=== PATIENT | female | born 1950 | race Caucasian/White ===

== ENCOUNTER → 2017-01-10 | Outpatient (CLI) | payer OTHER ==
--- NOTE | 2017-01-10 14:55 | MAMMOGRAPHY REPORT ---
BILATERAL DIGITAL SCREENING MAMMOGRAM WITH CAD: 01/10/2017 CLINICAL HISTORY: Routine screening examination. TECHNIQUE: Bilateral CC and MLO views were obtained. Current study was also evaluated with a Comput er Aided Detection (CAD) system. COMPARISON: Comparison is made to exams dated: 01/08/2016 mammogram, 01/06/2015 mammogram, 01/02/2014 m ammogram, 12/27/2012 mammogram, 12/27/2011 ultrasound, and 12/27/2011 mammogram - [facility] ter. BREAST COMPOSITION: There are scattered areas of fibroglandular density in both breasts. FINDINGS: There are 2 stable masses with associated biopsy marker clips in the left breast. There ar e scattered and grouped benign-appearing microcalcifications, stable in each breast. No new suspicio us mass, architectural distortion or cluster of microcalcifications is seen. IMPRESSION: ACR BI-RADS CATEGORY 1: NEGATIVE There is no mammographic evidence of malignancy. A 1 year screening mammogram is recommended. The pa tient will receive written notification of the results. Approximately 10% of breast cancers are not detected with mammography. A negative mammographic report should not delay biopsy if a clinically suggestive mass is present. Mona Blanco M.D. ay/:01/10/2017 12:01:42 [facility] Librarian: Nguyen CHEN(Jossue)(M), [facility] letter sent: Normal 1/2 BI-RADS Code: ACR BI-RADS Category 1: Negative
== END | disposition home or self-care (01) ==
LOC: C.MAMM 09:38
PROVIDERS: ATTEND Internal Medicine
DX: Z12.31 Encounter for screening mammogram for malignant neoplasm of breast (principal)

== ENCOUNTER 2025-03-13 12:08 | Inpatient (IN) ==
--- NOTE | 2025-03-13 12:26 | Emergency Department Note ---
Impression & Plan Syncope and collapse, Elevated troponin, Weakness, CKD (chronic kidney disease) ED Provider Note NAME: KYLAH MASSEY AGE: 74 SEX: F : 1950 ARRIVES VIA: Ambulance INFORMANT: Patient ED PROVIDER(S): Howard Mixon DO CHIEF COMPLAINT: Syncope HPI: Patient is a 74-year-old female with a past medical history of an NSTEMI who presents to the ER following a syncopal episode. She notes that she was walking to the bathroom and became very lightheaded and fell to the ground and passed out. She notes that she did hit her head. She is complaining of severe back pain. Denies any weakness or numbness in the legs. No chest pain or shortness of breath preceding or following the incident. No belly pain. No nausea or vomiting. No other exacerbating or remitting factors. ADDITIONAL HISTORY OBTAINED: Per HPI Chronic Medical/Social Conditions Affecting Care: Per HPI PAST MEDICAL HISTORY:See Below PAST SURGICAL HISTORY:See Below FAMILY HISTORY:See Below SOCIAL HISTORY:See Below HOME MEDICATIONS:See Below ALLERGIES:See Below VITALS:See Below PHYSICAL EXAMINATION: GENERAL: alert, well appearing, well nourished, no distress, non-toxic HEAD: normal cephalic, atraumatic EYE EXAM: normal conjunctiva, PERRL and EOM's grossly intact OROPHARYNX: no exudate, no erythema, lips, buccal mucosa, and tongue normal and mucous membranes are moist NECK: supple, no nuchal rigidity, no adenopathy, non-tender CHEST: stable to compression anteriorly and posteriorly LUNGS: clear to auscultation. Normal chest wall mechanics HEART: no murmurs, S1 normal and S2 normal ABDOMEN: abdomen soft, non-tender, normo-active bowel sounds, no masses, no rebound or guarding. PELVIS: stable to compression anteriorly and posteriorly BACK: Back is symmetrical on inspection and there is no deformity, midline tenderness in the lower lumbar region UPPER EXTREMITIES: full active and passive range of motion of all joints without tenderness to palpation LOWER EXTREMITIES: full active and passive range of motion of all joints without tenderness to palpation NEURO EXAM: Normal sensorium, cranial nerves II-XII grossly intact, normal speech, no gross weakness of arms, no gross weakness of legs. GCS: 15. MEDICAL DECISION MAKING: Patient is a 74-year-old female who presents ER for syncopal episode. IV was established and blood work was obtained. Labs show mild leukocytosis of 12,000. Mild anemia 10. BMP with a creatinine of 4.5 and per review of external records from [facility] this appears to be consistent with her new baseline. LFTs and bilirubin is unremarkable. Troponin mildly elevated 28 which I favor secondary to her chronic kidney disease. CTs of her head, cervical spine and and lumbar spine show an L1 fracture. She has significant Knott pain with this. She having trouble moving. X-rays were unremarkable of the chest. She was updated bedside. She was given IV morphine and following this she became slightly hypoxic. Case was discussed with the hospitalist for further evaluation management treatment. Consults/Care Managements Discussions: Per [facility] Triage Nursing notes reviewed. Limited review of prior medical records performed Vital Signs: reviewed and remarkable for no significant abnormalities Differential diagnosis: Differential diagnoses include major intracranial, cervical, spinal, thoracic, abdominal, pelvic and neurologic injury. Fracture, contusion, sprain, strain, laceration, abrasions included as well. ER treatment provided: See below Diagnostics interpreted by me include EKG and cardiac monitoring as listed below: -Cardiac Monitoring: An order was placed for continuous cardiac monitoring. The monitor shows a rate of 80 with sinus rhythm. -ECG: Sinus rhythm rate 83 Normal axis No PVCs QTc 451 -Laboratory studies:Interpreted by me as stated above in [facility] and shown below. Imaging studies: Xrays: As interpreted by me: Portable AP upright 1 view of the chest shows no focal Lutrate CTs show: CT head, cervical spine and lumbar spine as described above Procedures:none Critical Care: None Past Med/Surg History Problem List (Updated 03/13/25 @ 16:51 by Howard Mixon DO) CKD (chronic kidney disease) (Acute) Weakness (Acute) CAD, multiple vessel History of orthostatic hypotension Elevated troponin (Acute) History of coronary artery bypass graft x 3 Syncope and collapse (Acute) Non-ST elevation PA (NSTEMI) (Acute) Medical History Statin intolerance Fibromyalgia HLD (hyperlipidemia) T2DM (type 2 diabetes mellitus) Surgical History No pertinent past surgical history Family History Father Stroke Social History Smoking Status: Former smoker Tobacco Type: Cigarettes Hx Alcohol Use: No Hx Substance Use: No Preferred Language: Frisian Communication Ability: Effective [employer] Required: No Beliefs That Will Affect Care: None Current Living Situation: Alone Feels Safe at Home: Yes Allergies Allergies Allergy/AdvReac Type Severity Reaction Status Date / Time prednisone Allergy Intermediate INJECTED--HIVES, Verified 03/13/25 15:13 ORAL--BLOOD SUGARS 300+ Home Meds Home Medications Medication Instructions Recorded Confirmed cholecalciferol (vitamin D3) 50 50 mcg PO QAM 12/20/24 03/13/25 mcg (2,000 unit) tablet (Vitamin D3) multivitamin with minerals-folic 1 tab PO QAM 12/20/24 03/13/25 acid 0.4 mg tablet (One-A-Day Women's 50 Plus) omega 7-rbt-jwr-fish oil 1,000 mg 1 cap PO QAM 12/20/24 03/13/25 (120 mg-180 mg) capsule (Fish Oil) clopidogrel 75 mg tablet 75 mg PO QAM 03/13/25 03/13/25 escitalopram oxalate 10 mg tablet 10 mg PO QAM 03/13/25 03/13/25 famotidine 20 mg tablet 20 mg PO QAM 03/13/25 03/13/25 insulin aspart U-100 100 unit/mL 1 sliding scale dose subcut 03/13/25 03/13/25 (3 mL) subcutaneous pen TIDWMEAL insulin glargine 100 unit/mL (3 13 unit subcut HS 03/13/25 03/13/25 mL) subcutaneous pen (Lantus Solostar U-100 Insulin) torsemide 20 mg tablet 40 mg PO QAM 03/13/25 03/13/25 Previous Rx's Medication Instructions Recorded aspirin 81 mg tablet,delayed 81 mg PO QAM #1 tab 12/21/24 release Results & Data (ED) Vital Signs Vital Signs - 24 hr 03/13/25 12:16 03/13/25 12:16 03/13/25 12:46 Temperature 36.7 C 36.7 C Temperature Source Oral Oral Pulse Rate 73 73 Pulse Rate [Apical] 73 Pulse Rate from SpO2 Sensor Pulse Rhythm Regular Respiratory Rate 16 16 16 Respiratory Effort / Characteristics Non-Labored Spontaneous Non-Labored Spontaneous Respiratory Depth Normal Normal Respiratory Pattern Regular Regular Blood Pressure 121/71 Blood Pressure [Left Arm] 121/71 Blood Pressure Mean 87 Blood Pressure Mean [Left Arm] 87 Blood Pressure Position Semi-fowlers Blood Pressure Position [Left Arm] Semi-fowlers Pulse Oximetry 16 L 97 97 Oxygen Delivery Method Room Air Room Air Room Air Oxygen Flow Rate Sepsis Recent Fever Within 48 Hours No Sepsis New/Unexplained Change in Mental Status No Sepsis Action Taken by Nursing No Action Required Oxygen Flow Rate - Titration Pulse Oximetry Post Tiitration 03/13/25 13:00 03/13/25 13:49 03/13/25 13:59 Temperature Temperature Source Pulse Rate 82 82 Pulse Rate [Apical] 84 Pulse Rate from SpO2 Sensor 83 Pulse Rhythm Respiratory Rate 18 20 Respiratory Effort / Characteristics Non-Labored Respiratory Depth Normal Respiratory Pattern Blood Pressure 125/72 Blood Pressure [Left Arm] 125/72 Blood Pressure Mean 89 Blood Pressure Mean [Left Arm] 89 Blood Pressure Position Blood Pressure Position [Left Arm] Pulse Oximetry 95 90 Oxygen Delivery Method Room Air Oxygen Flow Rate Sepsis Recent Fever Within 48 Hours Sepsis New/Unexplained Change in Mental Status Sepsis Action Taken by Nursing Oxygen Flow Rate - Titration Pulse Oximetry Post Tiitration 03/13/25 14:00 03/13/25 14:25 03/13/25 14:31 Temperature 36.7 C Temperature Source Pulse Rate 85 85 Pulse Rate [Apical] Pulse Rate from SpO2 Sensor 85 Pulse Rhythm Respiratory Rate 19 16 Respiratory Effort / Characteristics Respiratory Depth Respiratory Pattern Blood Pressure 130/58 L 129/71 Blood Pressure [Left Arm] Blood Pressure Mean 82 Blood Pressure Mean [Left Arm] Blood Pressure Position Blood Pressure Position [Left Arm] Pulse Oximetry 93 100 88 L Oxygen Delivery Method Nasal Cannula Oxygen Flow Rate 2 0 Sepsis Recent Fever Within 48 Hours Sepsis New/Unexplained Change in Mental Status Sepsis Action Taken by Nursing Oxygen Flow Rate - Titration 2 Pulse Oximetry Post Tiitration 100 03/13/25 15:00 03/13/25 16:00 Temperature Temperature Source Pulse Rate Pulse Rate [Apical] 84 86 Pulse Rate from SpO2 Sensor Pulse Rhythm Respiratory Rate 18 20 Respiratory Effort / Characteristics Non-Labored Non-Labored Spontaneous Respiratory Depth Normal Normal Respiratory Pattern Blood Pressure Blood Pressure [Left Arm] 130/75 129/75 Blood Pressure Mean Blood Pressure Mean [Left Arm] 93 93 Blood Pressure Position Blood Pressure Position [Left Arm] Pulse Oximetry 100 98 Oxygen Delivery Method Room Air Room Air Oxygen Flow Rate Sepsis Recent Fever Within 48 Hours Sepsis New/Unexplained Change in Mental Status Sepsis Action Taken by Nursing Oxygen Flow Rate - Titration Pulse Oximetry Post Tiitration Laboratory Data 03/13/25 12:40 03/13/25 12:40 Lab Results 03/13/25 03/13/25 03/13/25 Range/Units 12:40 14:50 16:24 WBC 12.61 H (4.8-10.8) K/ul RBC 3.20 L (4.20-5.40) M/uL Hgb 10.1 L (12.0-16.0) g/dl Hct 30.3 L (37.0-47.0) % MCV 94.7 (80.0-100.0) fL MCH 31.6 (25.0-34.0) pg MCHC 33.3 (32.0-36.0) g/dL RDW Std Deviation 48.2 H (36.4-46.3) fL RDW Coeff of Zeina 13.8 (11.5-14.5) % Plt Count 348 (130-400) K/uL MPV 10.6 (9.4-12.4) fL Immature Gran % (Auto) 0.7 % Neut % (Auto) 84.1 % Lymph % (Auto) 7.6 % Dodge % (Auto) 6.7 % Eos % (Auto) 0.6 % Baso % (Auto) 0.3 % Neut # (Auto) 10.60 H (1.40-6.50) K/uL Lymph # (Auto) 0.96 L (1.20-3.40) K/uL Dodge # (Auto) 0.84 H (0.11-0.59) K/uL Eos # (Auto) 0.08 (0.00-0.50) K/uL Baso # (Auto) 0.04 (0.00-0.20) K/uL Immature Gran # (Auto) 0.09 (0.01-0.20) K/uL Sodium 139 (136-145) mmol/L Potassium 4.4 (3.5-5.1) mmol/L Chloride 98 (98-107) mmol/L Carbon Dioxide 28 (21-32) mmol/L Anion Gap 13 H (3-11) BUN 100 H (6-23) mg/dl Creatinine 4.50 H (0.6-1.2) mg/dl Est Cr Clr Drug Dosing 9.6 ml/min eGFR 9.60 BUN/Creatinine Ratio 22.2 H (10-20) Glucose 153 H (70-99(Fasting)) mg/dl POC Glucose 104 H (70-99) mg/dl Calcium 9.8 (8.6-10.3) mg/dl Total Bilirubin 0.5 (0.2-1.0) mg/dl AST 18 (13-39) U/L ALT 14 (7-52) U/L Alkaline Phosphatase 66 (34-104) U/L Troponin I High Sens 33.5 H 28.7 H (0-14) pg/ml Total Protein 7.3 (6.0-8.3) gm/dl Albumin 4.2 (3.4-5.0) gm/dl Globulin 3.1 (2.5-4.0) gm/dl Albumin/Globulin Ratio 1.4 (0.9-2) Lipase 23 (11-82) U/L Administered Medications Discontinued Medications Hydromorphone HCl (Hydromorphone Inj 1 Mg/Ml Syringe) 1 mg IV NOW STA Stop: 03/13/25 16:08 Last Admin: 03/13/25 16:19 Dose: 1 mg Documented By: WILLAM Sodium Chloride (Nss) 1,000 mls @ 999 mls/hr IV .Q1H1M ONE Stop: 03/13/25 15:17 Last Infusion: 03/13/25 16:29 Dose: Infused Documented By: Admin: 03/13/25 14:42 Dose: 999 mls/hr Documented By: FARHAD Morphine Sulfate (Morphine Sulfate 4 Mg/Ml 1 Ml Carp\Vial) 4 mg IV NOW STA Stop: 03/13/25 13:38 Last Admin: 03/13/25 13:43 Dose: 4 mg Documented By: FARHAD Imaging Data Radiologist's Impression: Cervical Spine CT 03/13/25 12:21 CT SCAN OF THE CERVICAL SPINE CLINICAL HISTORY: Fall. COMPARISON STUDY: None. TECHNIQUE: CT scan of the cervical spine is performed from the skull base to the upper thoracic spine. Images are reviewed in the axial, sagittal, and coronal planes. IV contrast was not administered for this examination. A dose lowering technique was utilized adhering to the principles of ALARA. FINDINGS: Skeletal structures: There is no evidence of fracture or subluxation involving the cervical spine. Vertebral body height and alignment are maintained. The odontoid process and lateral masses are intact. The atlantoaxial articulation is preserved. The spinous processes appear intact. There are mild degenerative changes at the C1-C2 articulation. There is mild multilevel endplate osteophytosis and minimal disc space narrowing within the cervical spine. Soft tissues: The prevertebral and paraspinous soft tissues are within normal limits. Calvarium: The visualized calvarium at the skull base appears intact. Brain parenchyma: Partially visualized brain parenchyma at the skull base is within normal limits. Lung apices: Clear as visualized. IMPRESSION: No acute cervical spine fracture or subluxation. ACT 112: Negative or not required by law. Electronically signed by: Jalen Nunez M.D. 03/13/2025 1:45 PM Chest X-Ray 03/13/25 12:21 XR chest 1V portable CLINICAL HISTORY: Chest pain, nonspecific COMPARISON STUDY: 12/20/2024 FINDINGS: Interval CABG. Stable mild cardiomegaly without pulmonary vascular congestion. No consolidation or pleural effusion. No pneumothorax. IMPRESSION: No acute findings. ACT 112: Negative or not required by law. Electronically signed by: Jacob Wise M.D. 03/13/2025 12:[address] 03/13/25 12:21 CT head/brain wo con CLINICAL HISTORY: fall. TECHNIQUE: Multiple axial CT images of the head were obtained without contrast. A dose lowering technique was utilized adhering to the principles of ALARA. COMPARISON: 06/03/2024 FINDINGS: No intracranial hemorrhage seen. No mass effect, midline shift, or hydrocephalus. No skull fracture seen. Visualized paranasal sinuses and mastoid air cells are clear. IMPRESSION: No acute findings. ACT 112: Negative or not required by law. The above report was generated using voice recognition software. It may contain grammatical, syntax or spelling errors. Electronically signed by: Jacob Wise M.D. 03/13/2025 1:[address] 03/13/25 12:21 CT SCAN OF THE LUMBAR SPINE WITHOUT IV CONTRAST CLINICAL HISTORY: Fall. Low back pain COMPARISON STUDY: Abdominal CT dated 10/31/2021 TECHNIQUE: CT scan of the lumbar spine is performed from the lower thoracic spine to the sacrum. Images are reviewed in axial, sagittal, and coronal planes. IV contrast was not administered for this examination. A dose lowering technique was utilized adhering to the principles of ALARA. CT DOSE: 2075.28 mGy.cm FINDINGS: A transitional lumbosacral segment will be labeled S1 for purposes of this examination. The skeletal structures are osteopenic. There is an acute comminuted compression fracture of L1 with mild loss of height along the superior endplate. This involves the superior and inferior cortex, as well as the anterior cortex. There is no clear involvement of the posterior cortex or posterior elements. Paravertebral edema is noted. No retropulsion of fragments is seen. No additional acute fracture is identified. Vertebral body height is otherwise maintained for the lumbar spine. Alignment is preserved. Anterior and lateral marginal osteophytes are seen throughout. The transverse and spinous processes are intact. There is no spondylolysis. No lytic or blastic lesion is seen. There is moderate disc space narrowing at L5-S1. Only mild disc space narrowing is seen at the remaining lumbar levels. Small posterior disc osteophyte complexes are noted at L3-L4, L4-L5, and L5-S1. There is no CT evidence of large disc herniation or high-grade central canal stenosis. The imaged sacrum and bony pelvis appear intact. Mild degenerative change is noted in the sacroiliac joints. The paraspinous soft tissues are within normal limits. Moderate epidural scar calcification is noted in the normal caliber abdominal aorta. There are calcified uterine fibroids. No retroperitoneal lymphadenopathy is seen. IMPRESSION: 1. There is an acute comminuted compression fracture of L1 as detailed above. There is only mild loss of height and no retropulsion of fragments is seen. 2. No additional acute fracture is identified. 3. Osteopenia and mild degenerative change as above. ACT 112: Negative or not required by law. Electronically signed by: David Haley M.D. 03/13/2025 2:01 PM Discharge Plan Visit Data Chief Complaint: Trauma ED Provider: Howard Mixon Discharge Problem: Syncope and collapse, Elevated troponin, Weakness, CKD (chronic kidney disease) Condition: Fair Forms Stand Alone Forms: My [facility] [employer] Prescriptions Prescriptions: No Action torsemide 20 mg tablet 40 mg PO QAM clopidogrel 75 mg tablet 75 mg PO QAM famotidine 20 mg tablet 20 mg PO QAM escitalopram oxalate 10 mg tablet 10 mg PO QAM insulin aspart U-100 100 unit/mL (3 mL) insulin pen 1 sliding scale dose SUBCUT TIDWMEAL insulin glargine [Lantus Solostar U-100 Insulin] 100 unit/mL (3 mL) insulin pen 13 unit SUBCUT HS cholecalciferol (vitamin D3) [Vitamin D3] 50 mcg (2,000 unit) Tablet 50 mcg PO QAM omega 5-ror-hmq-fish oil [Fish Oil] 1,000 (120-180) mg Capsule 1 cap PO QAM multivit with min-folic acid [One-A-Day Women's 50 Plus] 0.4 mg Tablet 1 tab PO QAM aspirin 81 mg Tablet,Delayed Release (Dr/Ec) 81 mg PO QAM Qty: 1 0RF Referrals Referrals: Janie Pena MD [Primary Care Provider] - Discharge Problem: CKD (chronic kidney disease) Qualifiers: Chronic kidney disease stage: unspecified stage Qualified Code(s): N18.9 - Chronic kidney disease, unspecified
[2025-03-13 12:55] LABS: Hematocrit (blood only) 30.3 % (37.0-47.0); Hemoglobin 10.1 g/dl (12.0-16.0); Immature Granulocytes # (auto) 0.09 K/uL (0.01-0.20); Immature Granulocytes % (auto) 0.7 %; Mean Corpuscular Hemoglobin 31.6 pg (25.0-34.0); Mean Corpuscular Volume 94.7 fL (80.0-100.0); Platelet Count 348 K/uL (130-400); RDW Standard Deviation 48.2 fL (36.4-46.3); Red Blood Count 3.20 M/uL (4.20-5.40); White Blood Count 12.61 K/ul (4.8-10.8)
--- NOTE | 2025-03-13 13:00 | XRay Report ---
XR chest 1V portable CLINICAL HISTORY: Chest pain, nonspecific COMPARISON STUDY: 12/20/2024 FINDINGS: Interval CABG. Stable mild cardiomegaly without pulmonary vascular congestion. No consolida tion or pleural effusion. No pneumothorax. IMPRESSION: No acute findings. ACT 112: Negative or not required by law. Electronically signed by: Jacob Wise M.D. 03/13/2025 12:59 PM
[2025-03-13 13:12] LABS: Alanine Aminotransferase 14.0 U/L (7-52); Albumin Globulin Ratio 1.4 (0.9-2); Alkaline Phosphatase 66.0 U/L (34-104); Anion Gap 13.0 (3-11); Bilirubin,Total 0.5 mg/dl (0.2-1.0); Blood Urea Nitrogen 100.0 mg/dl (6-23); Calcium 9.8 mg/dl (8.6-10.3); Carbon Dioxide 28.0 mmol/L (21-32); Chloride 98.0 mmol/L (98-107); Creatinine Clr Calc Pharmacy 9.6 ml/min; Globulin 3.1 gm/dl (2.5-4.0); Glucose 153.0 mg/dl (70-99(Fasting)); Lipase 23.0 U/L (11-82); Potassium 4.4 mmol/L (3.5-5.1); Sodium 139.0 mmol/L (136-145); Total Protein 7.3 gm/dl (6.0-8.3)
[2025-03-13] MEDS: MoRPHine SULFATE 4 MG/ML 1 ML CARP\\VIAL IV STA (13:43)
--- NOTE | 2025-03-13 13:47 | CT Scan Report ---
CT SCAN OF THE CERVICAL SPINE CLINICAL HISTORY: Fall. COMPARISON STUDY: None. TECHNIQUE: CT scan of the cervical spine is performed from the skull base to the upper thoracic spine . Images are reviewed in the axial, sagittal, and coronal planes. IV contrast was not administered fo r this examination. A dose lowering technique was utilized adhering to the principles of ALARA. FINDINGS: Skeletal structures: There is no evidence of fracture or subluxation involving the cervical spine. Ve rtebral body height and alignment are maintained. The odontoid process and lateral masses are intact . The atlantoaxial articulation is preserved. The spinous processes appear intact. There are mild deg enerative changes at the C1-C2 articulation. There is mild multilevel endplate osteophytosis and mini mal disc space narrowing within the cervical spine. Soft tissues: The prevertebral and paraspinous soft tissues are within normal limits. Calvarium: The visualized calvarium at the skull base appears intact. Brain parenchyma: Partially visualized brain parenchyma at the skull base is within normal limits. Lung apices: Clear as visualized. IMPRESSION: No acute cervical spine fracture or subluxation. ACT 112: Negative or not required by law. Electronically signed by: Jalen Nunez M.D. 03/13/2025 1:45 PM
--- NOTE | 2025-03-13 13:47 | CT Scan Report ---
CT head/brain wo con CLINICAL HISTORY: fall. TECHNIQUE: Multiple axial CT images of the head were obtained without contrast. A dose lowering tech nique was utilized adhering to the principles of ALARA. COMPARISON: 06/03/2024 FINDINGS: No intracranial hemorrhage seen. No mass effect, midline shift, or hydrocephalus. No skull fracture seen. Visualized paranasal sinuses and mastoid air cells are clear. IMPRESSION: No acute findings. ACT 112: Negative or not required by law. The above report was generated using voice recognition software. It may contain grammatical, syntax o r spelling errors. Electronically signed by: Jacob Wise M.D. 03/13/2025 1:46 PM
--- NOTE | 2025-03-13 14:02 | CT Scan Report ---
CT SCAN OF THE LUMBAR SPINE WITHOUT IV CONTRAST CLINICAL HISTORY: Fall. Low back pain COMPARISON STUDY: Abdominal CT dated 10/31/2021 TECHNIQUE: CT scan of the lumbar spine is performed from the lower thoracic spine to the sacrum. Evie ges are reviewed in axial, sagittal, and coronal planes. IV contrast was not administered for this ex amination. A dose lowering technique was utilized adhering to the principles of ALARA. CT DOSE: 2075.28 mGy.cm FINDINGS: A transitional lumbosacral segment will be labeled S1 for purposes of this examination. The skeletal structures are osteopenic. There is an acute comminuted compression fracture of L1 with mil d loss of height along the superior endplate. This involves the superior and inferior cortex, as well as the anterior cortex. There is no clear involvement of the posterior cortex or posterior elements. Paravertebral edema is noted. No retropulsion of fragments is seen. No additional acute fracture is identified. Vertebral body height is otherwise maintained for the lumbar spine. Alignment is preserve d. Anterior and lateral marginal osteophytes are seen throughout. The transverse and spinous processe s are intact. There is no spondylolysis. No lytic or blastic lesion is seen. There is moderate disc s pace narrowing at L5-S1. Only mild disc space narrowing is seen at the remaining lumbar levels. Small posterior disc osteophyte complexes are noted at L3-L4, L4-L5, and L5-S1. There is no CT evidence of large disc herniation or high-grade central canal stenosis. The imaged sacrum and bony pelvis appear intact. Mild degenerative change is noted in the sacroiliac joints. The paraspinous soft tissues are within normal limits. Moderate epidural scar calcification is noted in the normal caliber abdominal aorta. There are calcified uterine fibroids. No retroperitoneal lymphadenopathy is seen. IMPRESSION: 1. There is an acute comminuted compression fracture of L1 as detailed above. There is only mild loss of height and no retropulsion of fragments is seen. 2. No additional acute fracture is identified. 3. Osteopenia and mild degenerative change as above. ACT 112: Negative or not required by law. Electronically signed by: David Haley M.D. 03/13/2025 2:01 PM
--- NOTE | 2025-03-13 14:30 | History & Physical Report ---
<Statement entered by Kendrick Leiva, DO - 03/13/25 18:13> Patient seen and examined at bedside #MAGAN on CKD3 -Recent ARF requiring one session of HD at OSH -Cr 4.5, BUN 100 on admission. Cr 4.4 on 03/01 -Follows with nephrology as OP, on torsemide -BUN approaching need for HD, no encephalopathy or asterixis however -Appreciate nephrology assistance -Holding torsemide -IVF for today -Recheck BMP in AM -Avoid nephrotoxic agents if possible #L1 fx -Secondary to fall -Ortho consulted, appreciate input #Syncopal episode -Likely secondary to orthostasis -Volume repletion -Check TTE #Trop elevation -Likely non specific trop elevation in setting of MAGAN/CKD -Low suspicion for ACS -No chest pain -TTE pending Date of Service March 13, 2025 Assessment & Plan (1) Syncope and collapse: (2) History of orthostatic hypotension: (3) Fracture of lumbar spine: (4) Acute kidney injury superimposed on stage 3a chronic kidney disease: (5) Elevated troponin: (6) CAD, multiple vessel: (7) History of coronary artery bypass graft x 3: (8) Anemia: Plan Pt is a 74y/o F with PMHx significant for NSTEMI in November 2024, severe multivessel CAD s/p CABG x 3 [RODNEY to LAD and SVG to OM, PDA] on 12/25/2024, uncontrolled DMII [Hgb A1c 12.9% 2mo ago], HLD with history of statin intolerance, CKD stage IIIa, constipation and history of medication noncompliance who presented to the ED via EMS after sustaining a syncopal event at home. Recent confinement from 12/21/24-01/08/25 at [facility] for NSTEMI after being transferred from this facility for CABG evaluation s/p cardiac catheterization on 12/21/24 which revealed sever multivessel CAD. S/p CABG x 3 [RODNEY to LAD and SVG to OM, PDA] on 12/25/[address] Adame at [facility]. Postop course complicated by development of MAGAN and subsequent ARF secondary to ATN requiring CRRT x 1 session, acute anemia requiring PRBC transfusion and new- onset atrial fibrillation which resolved with conversion back to NSR s/p IV amiodarone. Patient was discharged on 80mg po torsemide daily due to fluid retention. TTE, 12/25/24: EF 56%, mild improvement in RWM in anteroseptal region, mild MR, mild TR and mild AVR. Patient was discharged to [facility] for rehab services following her admission at [facility]. She was discharged home from [facility] on 02/21/25. Patient currently living alone at her apartment with caregiver support in the AM on / and in the afternoon on /. She has a brother whom lives in [place]. No local family support. #Syncope and collapse #History of orthostasis #Acute comminuted compression fracture of L1 Syncope likely 2/2 orthostasis, volume depletion ISO torsemide use Hold torsemide for now -? consider even stopping torsemide Will check orthostatics as pt tolerates ISO low back pain 2/2 L1 fx s/p fall Check TTE Ortho spine consult Fall precautions OOB w/ assistance PRN analgesia, lynette lidocaine patch/PRN ice application on low back Leukocytosis likely reactive 2/2 pain -Will check procal; no s/sx of over infection -Follow CBC trend #MAGAN superimposed on underlying CKD stage IIIa #History of acute renal failure 2/2 ATN requiring CRRT x 1 session during recent admission at [facility] Seen by Dr. Hendricks as an OP on 03/01/25 -Cr 4.6 on 01/21/25 (prior baseline Cr ~0.8-1 prior to [facility] admission) -Cr 4.4, BUN 72 on 03/01/25 -Torsemide dose decreased to 40mg po daily 2/2 orthostasis, volume depletion Renal US completed 12/29/24 which was unremarkable No renal biopsy completed during admission at [facility] Cr 4.5, BUN 100, Cr Clr 9.6, eGFR 9.6 on admission -Discussed case w/ Dr. Hendricks via TT -Recommended IVF overnight, trend renal fx in AM --> consult placed, Dr. Hendricks to see pt Closely monitor I&Os, daily wts -D/w pt regarding Alfonso cath placement, she would like to trial PureWick for now Holding torsemide for now, as per above #Elevated troponin #Severe multivessel CAD s/p CABG x 3 on 6/3/25 EKG: NSR, no acute ST changes CXR: no acute findings Pt w/o any cardiopulmonary complaints Suspect trop elevation 2/2 demand ischemia ISO underlying cardiac dz, orthostasis Follow trop trend Tele monitoring, EKG w/ chest pain PRN Continue DAPT #Anemia Hgb appears to be slowly improving, 10.1 on admission Previously did require PRBC transfusions, as per above No s/sx of active bleeding on admission No indication for transfusion at this time Will check routine anemia panel including vit B12, folate Follow CBC trend #Uncontrolled DMII Hgb A1c 12.9% 2mo ago Basal/bolus regimen while inpt Appreciate glycemic pharm assistance Appreciate DM educator consult #Anxiety/depression Continue Lexapro #GERD Continue PPI DVT Prophylaxis: SCDs/TEDs for now, could consider chemical AC pending clinical course Disposition: Admit to med/telemetry Patient seen in collaboration with Dr. Leiva. Please see addendum. I spent a total of 72 minutes coordinating, documenting, and providing care for this patient excluding time spent in the performance of separately billed services or time spent by another provider/QHP. This included personally r eviewing all current laboratories and imaging studies, medical reconciliation, outpatient chart review and discussion with specialists. This chart was completed in part utilizing Speech Voice Recognition Software. Grammatical errors, random word insertions, pronoun errors, and incomplete sentences are an occasional consequence of this system due to software limitations, ambient noise, and hardware issues. Any formal questions or concerns about the content, text, or information contained within the body of this dictation should be directly addressed to the provider for clarification. History of Present Illness Chief Complaint: Syncope and collapse, low back pain Primary Care Provider: Janie Pena MD Pt is a 74y/o F with PMHx significant for NSTEMI in November 2024, severe multivessel CAD s/p CABG x 3 [RODNEY to LAD and SVG to OM, PDA] on 12/25/2024, uncontrolled DMII [Hgb A1c 12.9% 2mo ago], HLD with history of statin intolerance, CKD stage IIIa, constipation and history of medication noncompliance who presented to the ED via EMS after sustaining a syncopal event at home. History obtained from the patient, discussion with ED provider and extensive chart review. Recent confinement from 12/21/24-01/08/25 at [facility] for NSTEMI after being transferred from this facility for CABG evaluation since she was found to have severe multivessel CAD on cardiac catheterization performed by Dr. Renee on 12/21/24. S/p CABG x 3 [RODNEY to LAD and SVG to OM, PDA] on 12/25/[address] Adame at [facility]. Postop course complicated by development of MAGAN and subsequent ARF secondary to ATN requiring CRRT x 1 session, acute anemia requiring PRBC transfusion and new-onset atrial fibrillation which resolved with conversion back to NSR s/p IV amiodarone. Renal US was normal on 12/29/24. No renal biopsy was completed. Patient was discharged home on 80mg po torsemide daily due to fluid retention. TTE, 12/25/24: EF 56%, mild improvement in RWM in anteroseptal region, mild MR, mild TR and mild AVR. Patient was discharged to [facility] for rehab services following her admission at [facility]. She was discharged home from [facility] on 02/21/25. Patient seen by Dr. Hendricks, [facility] nephrology, as an OP on 03/01/25. Torsemide dose decreased to 40mg po daily due to orthostasis. Cr 4.6 on 01/21/25. Cr 4.4 and BUN 72 on 03/01/25. Patient currently living alone at her apartment with caregiver support in the AM on and in the afternoon on Tu/Th. She has a brother whom lives in [place]. No local family support. Was getting out of bed this morning and waking to the bathroom when her vision suddenly became blurry and "everything went black" before she subsequently fell to the floor. Recalls hitting her head on a nearby object. Also sustained some scrapes to her L forearm but she cannot recall if she landed primarily on her L or R side. She was able to crawl over to a nearby chair but admits to excruciating low back pain after the fall which prohibited her from being able to stand by herself. She waited for her caregiver to come to her house before calling EMS as she was unable to tolerate her low back pain. Admits to routinely checking her BP at home. States her resting BP while sitting after the fall was in the 90s/50s. She did not take any of her home medications this morning. Denies any SOB or chest pain. No recent urinary or bowel habit changes. States her appetite has been fair since being home from rehab. Denies any N/V. Allergies Allergy/AdvReac Type Severity Reaction Status Date / Time prednisone Allergy Intermediate INJECTED--HIVES, Verified 03/13/25 15:13 ORAL--BLOOD SUGARS 300+ Home Medications Medication Instructions Recorded Confirmed Type cholecalciferol (vitamin D3) 50 50 mcg PO QAM 12/20/24 03/13/25 History mcg (2,000 unit) tablet (Vitamin D3) multivitamin with minerals-folic 1 tab PO QAM 12/20/24 03/13/25 History acid 0.4 mg tablet (One-A-Day Women's 50 Plus) omega 5-stq-gke-fish oil 1,000 mg 1 cap PO QAM 12/20/24 03/13/25 History (120 mg-180 mg) capsule (Fish Oil) aspirin 81 mg tablet,delayed 81 mg PO QAM #1 tab 12/21/24 03/13/25 Rx release clopidogrel 75 mg tablet 75 mg PO QAM 03/13/25 03/13/25 History escitalopram oxalate 10 mg tablet 10 mg PO QAM 03/13/25 03/13/25 History famotidine 20 mg tablet 20 mg PO QAM 03/13/25 03/13/25 History insulin aspart U-100 100 unit/mL 1 sliding scale dose subcut 03/13/25 03/13/25 History (3 mL) subcutaneous pen TIDWMEAL insulin glargine 100 unit/mL (3 13 unit subcut HS 03/13/25 03/13/25 History mL) subcutaneous pen (Lantus Solostar U-100 Insulin) torsemide 20 mg tablet 40 mg PO QAM 03/13/25 03/13/25 History Past Med/Surg History Problem List (Updated 03/13/25 @ 17:21 by Argenis Cohen PA-C) Anemia Acute kidney injury superimposed on stage 3a chronic kidney disease Fracture of lumbar spine CKD (chronic kidney disease) (Acute) Weakness (Acute) CAD, multiple vessel History of orthostatic hypotension Elevated troponin (Acute) History of coronary artery bypass graft x 3 Syncope and collapse (Acute) Non-ST elevation HI (NSTEMI) (Acute) Medical History Statin intolerance Fibromyalgia HLD (hyperlipidemia) T2DM (type 2 diabetes mellitus) Surgical History No pertinent past surgical history Family History Father Stroke Social History Smoking Status: Former smoker Tobacco Type: Cigarettes Hx Alcohol Use: No Hx Substance Use: No Preferred Language: Mongolian Communication Ability: Effective Signal Constructor Required: No Beliefs That Will Affect Care: None Current Living Situation: Alone Feels Safe at Home: Yes Review of Systems Review of Systems: At least ten systems reviewed and negative, except as noted in the HPI. Physical Exam Physical Exam: General: Elderly F, NAD, laying down in bed, A&Ox3, pleasant, tearful affect, appears comfortable at rest HEENT: Normocephalic, atraumatic, oropharynx dry Respiratory: Normal respiratory effort, CTAB, saturating in upper 90s on RA Cardiovascular: RRR, normal peripheral pulses, no BLE edema Abdomen/GI: Active bowel sounds, soft, nontender to palpation in all quadrants Extremities/MSK: Limited mobility 2/2 low back pain, extremely TTP across lower back Neurologic: No overt focal deficits, CN's II-XI not formally tested but appear grossly intact bilaterally Results & Data Results & Data Vital Signs (Past 12 Hours) Vital Signs Temp Pulse Pulse Resp BP BP Pulse Ox 03/13/25 14:00 85 19 130/58 L 93 03/13/25 13:59 84 20 125/72 90 03/13/25 13:49 82 03/13/25 13:00 82 18 125/72 95 03/13/25 12:46 73 16 97 03/13/25 12:16 36.7 C 73 16 121/71 97 03/13/25 12:16 36.7 C 73 16 121/71 16 L O2 Del Method 03/13/25 14:00 03/13/25 13:59 Room Air 03/13/25 13:49 03/13/25 13:00 03/13/25 12:46 Room Air 03/13/25 12:16 Room Air 03/13/25 12:16 Room Air Laboratory Results Short CBC 03/13/25 Range/Units 12:40 WBC 12.61 H (4.8-10.8) K/ul Hgb 10.1 L (12.0-16.0) g/dl Hct 30.3 L (37.0-47.0) % Plt Count 348 (130-400) K/uL BMP 03/13/25 12:40 Sodium 139 Potassium 4.4 Chloride 98 Carbon Dioxide 28 BUN 100 H Creatinine 4.50 H Glucose 153 H Calcium 9.8 Liver Function 03/13/25 Range/Units 12:40 Total Bilirubin 0.5 (0.2-1.0) mg/dl AST 18 (13-39) U/L ALT 14 (7-52) U/L Alkaline Phosphatase 66 (34-104) U/L Albumin 4.2 (3.4-5.0) gm/dl Diagnostic Findings Cervical Spine CT 03/13/25 12:21 CT SCAN OF THE CERVICAL SPINE CLINICAL HISTORY: Fall. COMPARISON STUDY: None. TECHNIQUE: CT scan of the cervical spine is performed from the skull base to the upper thoracic spine. Images are reviewed in the axial, sagittal, and coronal planes. IV contrast was not administered for this examination. A dose lowering technique was utilized adhering to the principles of ALARA. FINDINGS: Skeletal structures: There is no evidence of fracture or subluxation involving the cervical spine. Vertebral body height and alignment are maintained. The odontoid process and lateral masses are intact. The atlantoaxial articulation is preserved. The spinous processes appear intact. There are mild degenerative changes at the C1-C2 articulation. There is mild multilevel endplate osteophytosis and minimal disc space narrowing within the cervical spine. Soft tissues: The prevertebral and paraspinous soft tissues are within normal limits. Calvarium: The visualized calvarium at the skull base appears intact. Brain parenchyma: Partially visualized brain parenchyma at the skull base is within normal limits. Lung apices: Clear as visualized. IMPRESSION: No acute cervical spine fracture or subluxation. ACT 112: Negative or not required by law. Electronically signed by: Jalen Nunez M.D. 03/13/2025 1:45 PM Chest X-Ray 03/13/25 12:21 XR chest 1V portable CLINICAL HISTORY: Chest pain, nonspecific COMPARISON STUDY: 12/20/2024 FINDINGS: Interval CABG. Stable mild cardiomegaly without pulmonary vascular congestion. No consolidation or pleural effusion. No pneumothorax. IMPRESSION: No acute findings. ACT 112: Negative or not required by law. Electronically signed by: Jacob Wise M.D. 03/13/2025 12:[address] 03/13/25 12:21 CT head/brain wo con CLINICAL HISTORY: fall. TECHNIQUE: Multiple axial CT images of the head were obtained without contrast. A dose lowering technique was utilized adhering to the principles of ALARA. COMPARISON: 06/03/2024 FINDINGS: No intracranial hemorrhage seen. No mass effect, midline shift, or hydrocephalus. No skull fracture seen. Visualized paranasal sinuses and mastoid air cells are clear. IMPRESSION: No acute findings. ACT 112: Negative or not required by law. The above report was generated using voice recognition software. It may contain grammatical, syntax or spelling errors. Electronically signed by: Jacob Wise M.D. 03/13/2025 1:[address] 03/13/25 12:21 CT SCAN OF THE LUMBAR SPINE WITHOUT IV CONTRAST CLINICAL HISTORY: Fall. Low back pain COMPARISON STUDY: Abdominal CT dated 10/31/2021 TECHNIQUE: CT scan of the lumbar spine is performed from the lower thoracic spine to the sacrum. Images are reviewed in axial, sagittal, and coronal planes. IV contrast was not administered for this examination. A dose lowering technique was utilized adhering to the principles of ALARA. CT DOSE: 2075.28 mGy.cm FINDINGS: A transitional lumbosacral segment will be labeled S1 for purposes of this examination. The skeletal structures are osteopenic. There is an acute comminuted compression fracture of L1 with mild loss of height along the superior endplate. This involves the superior and inferior cortex, as well as the anterior cortex. There is no clear involvement of the posterior cortex or posterior elements. Paravertebral edema is noted. No retropulsion of fragments is seen. No additional acute fracture is identified. Vertebral body height is otherwise maintained for the lumbar spine. Alignment is preserved. Anterior and lateral marginal osteophytes are seen throughout. The transverse and spinous processes are intact. There is no spondylolysis. No lytic or blastic lesion is seen. There is moderate disc space narrowing at L5-S1. Only mild disc space narrowing is seen at the remaining lumbar levels. Small posterior disc osteophyte complexes are noted at L3-L4, L4-L5, and L5-S1. There is no CT evidence of large disc herniation or high-grade central canal stenosis. The imaged sacrum and bony pelvis appear intact. Mild degenerative change is noted in the sacroiliac joints. The paraspinous soft tissues are within normal limits. Moderate epidural scar calcification is noted in the normal caliber abdominal aorta. There are calcified uterine fibroids. No retroperitoneal lymphadenopathy is seen. IMPRESSION: 1. There is an acute comminuted compression fracture of L1 as detailed above. There is only mild loss of height and no retropulsion of fragments is seen. 2. No additional acute fracture is identified. 3. Osteopenia and mild degenerative change as above. ACT 112: Negative or not required by law. Electronically signed by: David Haley M.D. 03/13/2025 2:01 PM Medications Administered Sodium Chloride (Nss) 1,000 mls @ 999 mls/hr IV .Q1H1M ONE Stop: 03/13/25 15:17 Last Admin: 03/13/25 14:42 Dose: 999 mls/hr Documented By: MMG Discontinued Medications Morphine Sulfate (Morphine Sulfate 4 Mg/Ml 1 Ml Carp\\Vial) 4 mg IV NOW STA Stop: 03/13/25 13:38 Last Admin: 03/13/25 13:43 Dose: 4 mg Documented By: FARHAD Code Status & VTE Plan Code Status FULL CODE - As per discussion with the patient at bedside in the ED. (3) Fracture of lumbar spine Encounter type: initial encounter Lumbar vertebra fracture level: L1 Fracture type: closed Fracture morphology: unspecified fracture morphology Qualified Code(s): S32.019A - Unspecified fracture of first lumbar vertebra, initial encounter for closed fracture (8) Anemia Anemia type: unspecified type Qualified Code(s): D64.9 - Anemia, unspecified
[2025-03-13] MEDS: SODIUM CHLORIDE 0.9% 1,000 ML IV ONE (14:42)
[2025-03-13] MEDS ORDERED: GLUCOSE 10 TAB/TUBE PO PRN (15:09)
[2025-03-13] MEDS ORDERED: PHARMACY GLYCEMIC MGMT CONSULT PRN (15:09)
[2025-03-13] MEDS ORDERED: GLUCOSE 40% GEL 15 GM TUBE PO PRN (15:09)
[2025-03-13] MEDS ORDERED: GLUCAGON FOR INJ 1 MG VIAL SQ PRN (15:09)
[2025-03-13] MEDS ORDERED: DEXTROSE 50% 50 ML SYRINGE IV PRN (15:09)
[2025-03-13] MEDS ORDERED: CARBOHYDRATES FOR HYPOGLYCEMIA PO PRN (15:09)
[2025-03-13] MEDS: HYDROmorphone INJ 1 MG/ML SYRINGE IV STA (16:19)
[2025-03-13] MEDS ORDERED: HYDROmorphone INJ 1 MG/ML SYRINGE IV PRN (16:50)
[2025-03-13] MEDS ORDERED: MoRPHine SULFATE 2 MG/ML CARP IV PRN (16:50)
[2025-03-13] MEDS: LIDOCAINE 5% 1 PATCH TD STA (17:08)
[2025-03-13] MEDS: SODIUM CHLORIDE 0.9% 1,000 ML IV SCH (17:08)
[2025-03-13] MEDS ORDERED: ACETAMINOPHEN 325 MG TAB PO PRN (18:37)
[2025-03-13] MEDS: ONDANSETRON INJ 2 MG/ML 2 ML VIAL IV PRN (18:39)
[2025-03-13] MEDS: INSULIN ASPART PER UNIT CHARGE SC SCH (21:42)
[2025-03-13] MEDS: LANTUS PER UNIT CHARGE SQ SCH (21:49)
[2025-03-13] MEDS: PROMETHAZINE 12.5 MG/50.5 ML BAG IV PRN (21:59)
[2025-03-14] MEDS: REMOVE LIDODERM PATCH SCH
[2025-03-14 06:12] LABS: Hematocrit (blood only) 26.1 % (37.0-47.0); Hemoglobin 8.5 g/dl (12.0-16.0); Immature Granulocytes # (auto) 0.03 K/uL (0.01-0.20); Immature Granulocytes % (auto) 0.4 %; Mean Corpuscular Hemoglobin 31.8 pg (25.0-34.0); Mean Corpuscular Volume 97.8 fL (80.0-100.0); Platelet Count 294 K/uL (130-400); RDW Standard Deviation 50.2 fL (36.4-46.3); Red Blood Count 2.67 M/uL (4.20-5.40); White Blood Count 6.99 K/ul (4.8-10.8)
[2025-03-14 06:33] LABS: Anion Gap 10.0 (3-11); Blood Urea Nitrogen 88.0 mg/dl (6-23); Calcium 8.9 mg/dl (8.6-10.3); Carbon Dioxide 28.0 mmol/L (21-32); Chloride 106.0 mmol/L (98-107); Creatinine Clr Calc Pharmacy 10.6 ml/min; Glucose 100.0 mg/dl (70-99(Fasting)); Iron 37.0 mcg/dl (35-150); Magnesium 2.6 mg/dl (1.7-2.4); Potassium 4.3 mmol/L (3.5-5.1); Sodium 144.0 mmol/L (136-145); Total Iron Binding Cap Calc 295.0 mcg/dl (250-450); Transferrin 211.0 mg/dl (200-360); Transferrin (FE) Percent Satur 13.0 % (15-50)
[2025-03-14 06:53] LABS: Ferritin 616.4 ng/ml (8-388)
--- NOTE | 2025-03-14 07:29 | Orthopedic Consultation ---
Date of Service March 14, 2025 Assessment & Plan (1) Lumbar compression fracture: * Case/imaging reviewed and discussed with Dr Terrell * Recommend conservative management with bracing, activity modification * TLSO brace ordered, recommend use during activity, not needed while in bed * Activity as tolerated * Daily treatment: Physical Therapy/ Occupational Therapy per protocol * Weight bearing status: WBAT * Pain control * Remainder care per primary team * Will follow peripherally. Office follow-up 2-3 weeks for repeat imaging and progress check. History of Present Illness Reason for Consultation: L1 compression fx Requesting Physician: . Attending Physician: Luis Smith DO .Patient is a 74 y/o female with low back pain. PMH including fibromyalgia, hyperlipidemia, DM2, CAD with history of CABG, CKD. Presents to hospital via EMS after syncopal event at home. Recent hospitalization incidental for NSTEMI, s/p cardiac catheterization 12/21, and CABG x3 on 12/25. Subsequent MAGAN. Recovered at rehab, discharged home in January. Currently lives alone with caregiver support. Reports that yesterday morning was walking about when vision became blurry and "everything went black" before falling to the floor. Acute onset severe low back pain, unable to ambulate or stand by herself. Current workup including CT lumbar spine demonstrating L1 compression fracture. Also noted to have MAGAN and elevated troponins. Admitted to hospital medicine team for further workup. Orthopedics consulted for management recommendations. At time of exam patient lying comfortably in bed, no acute distress. Reports moderate pain of the midline low back. Otherwise no radicular symptoms, denies tingling or numbness of lower extremities. No reported weakness. No assistive device at baseline. Allergies Allergy/AdvReac Type Severity Reaction Status Date / Time prednisone Allergy Intermediate INJECTED--HIVES, Verified 03/13/25 15:13 ORAL--BLOOD SUGARS 300+ Home Medications Medication Instructions Recorded Confirmed Type cholecalciferol (vitamin D3) 50 50 mcg PO QAM 12/20/24 03/13/25 History mcg (2,000 unit) tablet (Vitamin D3) multivitamin with minerals-folic 1 tab PO QAM 12/20/24 03/13/25 History acid 0.4 mg tablet (One-A-Day Women's 50 Plus) omega 9-eev-zjf-fish oil 1,000 mg 1 cap PO QAM 12/20/24 03/13/25 History (120 mg-180 mg) capsule (Fish Oil) aspirin 81 mg tablet,delayed 81 mg PO QAM #1 tab 12/21/24 03/13/25 Rx release clopidogrel 75 mg tablet 75 mg PO QAM 03/13/25 03/13/25 History escitalopram oxalate 10 mg tablet 10 mg PO QAM 03/13/25 03/13/25 History famotidine 20 mg tablet 20 mg PO QAM 03/13/25 03/13/25 History insulin aspart U-100 100 unit/mL 1 sliding scale dose subcut 03/13/25 03/13/25 History (3 mL) subcutaneous pen TIDWMEAL insulin glargine 100 unit/mL (3 13 unit subcut HS 03/13/25 03/13/25 History mL) subcutaneous pen (Lantus Solostar U-100 Insulin) torsemide 20 mg tablet 40 mg PO QAM 03/13/25 03/13/25 History Past Med/Surg History Problem List (Updated 03/14/25 @ 10:04 by David Terrell MD) Lumbar compression fracture Anemia Acute kidney injury superimposed on stage 3a chronic kidney disease Fracture of lumbar spine CKD (chronic kidney disease) (Acute) Weakness (Acute) CAD, multiple vessel History of orthostatic hypotension Elevated troponin (Acute) History of coronary artery bypass graft x 3 Syncope and collapse (Acute) Non-ST elevation MA (NSTEMI) (Acute) Medical History Statin intolerance Fibromyalgia HLD (hyperlipidemia) T2DM (type 2 diabetes mellitus) Surgical History No pertinent past surgical history Family History Father Stroke Social History Smoking Status: Never smoker Tobacco Type: Cigarettes Hx Alcohol Use: No Hx Substance Use: No Preferred Language: Guamanian Communication Ability: Effective Fine Grader Required: No Beliefs That Will Affect Care: None Current Living Situation: Alone Feels Safe at Home: Yes Safety Concerns: Feels Safe At This Time Assistive Devices: Cane and Walker Review of Systems All systems reviewed & are unremarkable except as noted in HPI & below. Physical Exam . * General: Alert and oriented, no acute distress * Constitutional: well-developed, well-nourished. * Respiratory: Normal respiratory effort, no distress * Gastrointestinal: No tenderness to palpation, no rigidity or guarding. * Skin: No rash or lesion. * Neurologic: Grossly normal * Musculoskeletal: Lumbar spine region without obvious deformity or overlying skin changes. TTP midline lumbar spine region and paraspinals, otherwise no tenderness b/l buttock or LE. Lumbar flexion/extension and rotation ROM with minimal pain. AROM b/l hip flexion, knee flexion/extension, ankle flexion/extension intact. Strength 5/5 bilaterally throughout lower extremity. Sensation intact plantar/dorsal foot. Brisk capillary refill. Results & Data Results & Data Laboratory Results . Diagnostic Findings . Cervical Spine CT 03/13/25 12:21 CT SCAN OF THE CERVICAL SPINE CLINICAL HISTORY: Fall. COMPARISON STUDY: None. TECHNIQUE: CT scan of the cervical spine is performed from the skull base to the upper thoracic spine. Images are reviewed in the axial, sagittal, and coronal planes. IV contrast was not administered for this examination. A dose lowering technique was utilized adhering to the principles of ALARA. FINDINGS: Skeletal structures: There is no evidence of fracture or subluxation involving the cervical spine. Vertebral body height and alignment are maintained. The odontoid process and lateral masses are intact. The atlantoaxial articulation is preserved. The spinous processes appear intact. There are mild degenerative changes at the C1-C2 articulation. There is mild multilevel endplate osteophytosis and minimal disc space narrowing within the cervical spine. Soft tissues: The prevertebral and paraspinous soft tissues are within normal limits. Calvarium: The visualized calvarium at the skull base appears intact. Brain parenchyma: Partially visualized brain parenchyma at the skull base is within normal limits. Lung apices: Clear as visualized. IMPRESSION: No acute cervical spine fracture or subluxation. ACT 112: Negative or not required by law. Electronically signed by: Jalen Nunez M.D. 03/13/2025 1:45 PM Chest X-Ray 03/13/25 12:21 XR chest 1V portable CLINICAL HISTORY: Chest pain, nonspecific COMPARISON STUDY: 12/20/2024 FINDINGS: Interval CABG. Stable mild cardiomegaly without pulmonary vascular congestion. No consolidation or pleural effusion. No pneumothorax. IMPRESSION: No acute findings. ACT 112: Negative or not required by law. Electronically signed by: Jacob Wise M.D. 03/13/2025 12:[address] 03/13/25 12:21 CT head/brain wo con CLINICAL HISTORY: fall. TECHNIQUE: Multiple axial CT images of the head were obtained without contrast. A dose lowering technique was utilized adhering to the principles of ALARA. COMPARISON: 06/03/2024 FINDINGS: No intracranial hemorrhage seen. No mass effect, midline shift, or hydrocephalus. No skull fracture seen. Visualized paranasal sinuses and mastoid air cells are clear. IMPRESSION: No acute findings. ACT 112: Negative or not required by law. The above report was generated using voice recognition software. It may contain grammatical, syntax or spelling errors. Electronically signed by: Jacob Wise M.D. 03/13/2025 1:[address] 03/13/25 12:21 CT SCAN OF THE LUMBAR SPINE WITHOUT IV CONTRAST CLINICAL HISTORY: Fall. Low back pain COMPARISON STUDY: Abdominal CT dated 10/31/2021 TECHNIQUE: CT scan of the lumbar spine is performed from the lower thoracic spine to the sacrum. Images are reviewed in axial, sagittal, and coronal planes. IV contrast was not administered for this examination. A dose lowering technique was utilized adhering to the principles of ALARA. CT DOSE: 2075.28 mGy.cm FINDINGS: A transitional lumbosacral segment will be labeled S1 for purposes of this examination. The skeletal structures are osteopenic. There is an acute comminuted compression fracture of L1 with mild loss of height along the superior endplate. This involves the superior and inferior cortex, as well as the anterior cortex. There is no clear involvement of the posterior cortex or posterior elements. Paravertebral edema is noted. No retropulsion of fragments is seen. No additional acute fracture is identified. Vertebral body height is otherwise maintained for the lumbar spine. Alignment is preserved. Anterior and lateral marginal osteophytes are seen throughout. The transverse and spinous processes are intact. There is no spondylolysis. No lytic or blastic lesion is seen. There is moderate disc space narrowing at L5-S1. Only mild disc space narrowing is seen at the remaining lumbar levels. Small posterior disc osteophyte complexes are noted at L3-L4, L4-L5, and L5-S1. There is no CT evidence of large disc herniation or high-grade central canal stenosis. The imaged sacrum and bony pelvis appear intact. Mild degenerative change is noted in the sacroiliac joints. The paraspinous soft tissues are within normal limits. Moderate epidural scar calcification is noted in the normal caliber abdominal aorta. There are calcified uterine fibroids. No retroperitoneal lymphadenopathy is seen. IMPRESSION: 1. There is an acute comminuted compression fracture of L1 as detailed above. There is only mild loss of height and no retropulsion of fragments is seen. 2. No additional acute fracture is identified. 3. Osteopenia and mild degenerative change as above. ACT 112: Negative or not required by law. Electronically signed by: David Haley M.D. 03/13/2025 2:01 PM PG Care Time/CCT Total # of Minutes Spent Total Time Spent with Patient: Total time spent is greater than 50% in coordination of care (as documented) at patient's floor/unit and/or counseling patient: Supervising Physician Co-Signing Physician Notes I, David Terrell MD, examined the patient with Terry Metz PA-C, agree with plan as documented. [place] [address] IN/OBS CONSULT LVL 3,45M Patient Type New Medical Decision Making Low Complexity Diagnoses Compression fracture of L1 vertebra, initial encounter S32.010A Encounter type: initial encounter Lumbar vertebra fracture level: L1 (1) Lumbar compression fracture Encounter type: initial encounter Lumbar vertebra fracture level: L1 Qualified Code(s): S32.010A - Wedge compression fracture of first lumbar vertebra, initial encounter for closed fracture
[2025-03-14] MEDS: FAMOTIDINE 20 MG TAB PO SCH (09:32)
[2025-03-14] MEDS: LIDOCAINE 5% 1 PATCH TD SCH (09:32)
[2025-03-14] MEDS: ACETAMINOPHEN 500 MG TAB PO SCH (09:32)
[2025-03-14] MEDS: ASPIRIN 81 MG ECTAB PO SCH (09:33)
[2025-03-14] MEDS: CHOLECALCIFEROL 25 MCG (1000 UNITS) TAB PO SCH (09:33)
[2025-03-14] MEDS: ESCITALOPRAM OXALATE 10 MG TAB PO SCH (09:34)
[2025-03-14] MEDS: CLOPIDOGREL BISULFATE 75 MG TAB PO SCH (09:34)
[2025-03-14] MEDS: MULTIVITAMIN TAB PO SCH (09:34)
--- NOTE | 2025-03-14 10:05 | Pharmacy Report ---
Pharmacy Glycemic Short Note 2 - Date of Service March 14, 2025 - Glycemic Short BSG Results (Last 24 hours): 03/13/25 03/13/25 03/13/25 12:40 16:24 18:36 Glucose 153 H POC Glucose 104 H 149 H 03/13/25 03/14/25 03/14/25 20:20 05:43 08:00 Glucose 100 H POC Glucose 191 H 100 H OUTPATIENT ANTIDIABETIC REGIMEN: * Lantus 15 units SC HS * Novolog SSI A1c = 12.8% (12/21/24) ASSESSMENT: * Zena is a 74 yo T2DM admitted with acute onset severe low back pain after sustaining a fall. Patient found to have lumbar compression fracture. Ortho consulted and recommended conservative management. * Patient has been continued on home regimen of Lantus + Novolog. Lantus dose has been reduced to 5 units BID, which appears to be reasonable thus far. Fasting BSG of 100 mg/dL. * Novolog ordered based on weight/stress 2. Limited post prandial data at this time. Will continue for now. PLAN FOR INPATIENT GLYCEMIC CONTROL: * Basal insulin * Lantus 5 units SQ BID * Bolus insulin * NovoLog per scale ACHS or Q6hrs while NPO * Goal Range: Low 120 mg/dL - High 160 mg/dL * Correction Factor: 35 mg/dL/unit * Nutritional / Prandial insulin per carb ratio of 1 unit per 11 grams CHO consumed
--- NOTE | 2025-03-14 13:40 | Hospitalist Progress Note ---
Date of Service March 14, 2025 Assessment & Plan (1) Syncope and collapse: Plan: Suspect orthostasis (2) Acute on chronic anemia: Plan: Suspect due to renal dysfunction (3) Compression fracture of L1 lumbar vertebra: (4) Acute retention of urine: (5) Electrolyte abnormality: (6) Acute kidney injury superimposed on stage 3a chronic kidney disease: (7) Elevated troponin: Plan: Due to renal dysfunction (8) CAD, multiple vessel: (9) History of coronary artery bypass graft x 3: (10) Diabetes mellitus type 2, insulin dependent: Plan Patient with fall suspect due to orthostatic syncope and pain associated with lumbar compression fracture Reviewed orthopedic recommendation continue pain control and bracing Therapies Alfonso catheter placed for urinary retention, suspect bladder dysfunction most likely due to decreased mobility from the fractures possible medications Patient with some electrolyte abnormalities in the setting of chronic renal failure. Reportedly required at least 1 session of hemodialysis at an outside facility. Nephrology consultation pending Continue to monitor laboratory studies Monitor orthostatics Case management pursue possible placement. Patient was just recently at [facility]. Admission and Anticipated Discharge Date Admission Date: March 13, 2025 Subjective Patient states she has significant pain from her fracture. Reports that she was having home instead come into the house Tuesday through Tuesday since her discharge from [facility]. New issue of urinary retention overnight Physical Exam Physical Exam: Constitutional: Alert, nontoxic HEENT: Mucous membranes moist. Lungs: Clear to auscultation, decreased, no wheezes rales or rhonchi CV: S1-S2, regular Abdomen: Soft, nontender, nondistended Extremities: No significant edema Neuro: No focal deficits, generally weak Psych: Cooperative, normal mood Results & Data Results & Data Vital Signs (Past 12 Hours) Vital Signs Temp Pulse Pulse Resp BP Pulse Ox O2 Del Method 03/14/25 07:47 36.9 C 86 18 107/67 95 Room Air 03/14/25 07:45 Room Air 03/14/25 07:25 84 03/14/25 04:00 36.6 C 82 18 103/65 97 Room Air Diagnostic Findings Reviewed imaging, laboratory and diagnostic studies. Pertinent findings as below. Hemoglobin 8.5, decreased BUN 88 Creatinine 4.7 Phosphorus 6.2 Magnesium 2.6 Iron studies reviewed Troponins reviewed, flat no evidence of acute coronary syndrome, suspect due to renal dysfunction
--- NOTE | 2025-03-14 13:41 | Nephrology Consultation ---
Date of Consultation March 14, 2025 Assessment & Plan (1) MAGAN (acute kidney injury): MAGAN happened post CABG even needing dialysis briefly at [facility]. prior to CABG had creat of 0.97. Creat was downtrending as outpt wit 4.4 on 03/01/25. yesterday was 4.5 but given episode of Syncope, lowish BP will assume she had pre renal cause with volume depletion. Continue IVF for now at least till AM Cr 4.5, BUN 100 on admission. Cr 4.4 on 03/01. Totally stop torsemide. No uremic Symptoms. NO need of Dialysis. Creat did come down from yesterday as well as BUN. Recheck BMP in AM Avoid nephrotoxic agents if possible. No further workup needed. (2) Acute on chronic anemia: She had Anemia--recent CABG/Severe MAGAN so some anemia is expected. Will give venofer 300 mg now and also procrit [id number] (3) Compression fracture of L1 lumbar vertebra: Plan time spent 63 mins History of Present Illness Reason for Consultation: MAGAN on CKD Attending Physician: Luis Smith, DO History of Present Illness 74/F with normal creat of 0.97 as of 12/21/2024 . She had NSTEMI in November 2024 then had cath showing severe multivessel CAD then s/p CABG x 3 on 12/25/2024. has h/o very uncontrolled DMII and history of medication noncompliance who presented to the ED via EMS after sustaining a syncopal episode at home. Recent admission from 12/21/24-01/08/25 at [facility] for NSTEMI then had CABG x 3. Postop course complicated by development of MAGAN and subsequent ARF secondary to ATN requiring CRRT x 1 session, acute anemia requiring PRBC transfusion and new- onset atrial fibrillation which resolved with conversion back to NSR s/p IV amiodarone. Renal US was normal on 12/29/24. No renal biopsy was completed. Patient was discharged home on 80mg po torsemide daily due to fluid retention. TTE, 12/25/24: EF 56%. Patient was discharged to [facility] for rehab services following her admission at [facility]. She was discharged home from [facility] on 02/21/25. Patient seen by me as an OP on 03/01/25. Torsemide dose decreased to 40mg po daily due to orthostasis. Cr 4.6 on 01/21/25. Cr 4.4 and BUN 72 on 03/01/25. Patient currently living alone at her apartment with caregiver support in the AM on and in the afternoon on /. She has a brother who lives in [place]. No local family support. Was getting out of bed this yesterday and going to the bathroom when hshe had Syncope and fell to the floor. Recalls hitting her head on a nearby object. Admits to routinely checking her BP at home. States her resting BP while sitting after the fall was in the 90s/50s. She did not take any of her home medications this morning. Denies any SOB or chest pain. No recent urinary or bowel habit changes. States her appetite has been fine since being home from rehab. Denies any N/V. On admission creat was 4.5 and this AM down to 4.17. BP is somewhat better now. Did sustain l1 Compression Fracture. currently has torres with 900 ml urine already. urine sediment bland--no blood and no protein ROS--- see HPI. 12 Systems otherwise negative Physical Exam Physical Exam: General: Elderly, No distress, laying down in bed, A&Ox3, pleasant, tearful affect, appears comfortable at rest HEENT: Normocephalic, atraumatic, oropharynx dry Respiratory: Normal respiratory effort, CTAB, saturating in upper 90s on RA Cardiovascular: RRR, normal peripheral pulses, no BLE edema Abdomen/GI: Active bowel sounds, soft, nontender to palpation in all quadrants Neurologic: No overt focal deficits Allergies Allergy/AdvReac Type Severity Reaction Status Date / Time prednisone Allergy Intermediate INJECTED--HIVES, Verified 03/13/25 15:13 ORAL--BLOOD SUGARS 300+ Home Medications Medication Instructions Recorded Confirmed Type cholecalciferol (vitamin D3) 50 50 mcg PO QAM 12/20/24 03/13/25 History mcg (2,000 unit) tablet (Vitamin D3) multivitamin with minerals-folic 1 tab PO QAM 12/20/24 03/13/25 History acid 0.4 mg tablet (One-A-Day Women's 50 Plus) omega 8-lpt-kgo-fish oil 1,000 mg 1 cap PO QAM 12/20/24 03/13/25 History (120 mg-180 mg) capsule (Fish Oil) aspirin 81 mg tablet,delayed 81 mg PO QAM #1 tab 12/21/24 03/13/25 Rx release clopidogrel 75 mg tablet 75 mg PO QAM 03/13/25 03/13/25 History escitalopram oxalate 10 mg tablet 10 mg PO QAM 03/13/25 03/13/25 History famotidine 20 mg tablet 20 mg PO QAM 03/13/25 03/13/25 History insulin aspart U-100 100 unit/mL 1 sliding scale dose subcut 03/13/25 03/13/25 History (3 mL) subcutaneous pen TIDWMEAL insulin glargine 100 unit/mL (3 13 unit subcut HS 03/13/25 03/13/25 History mL) subcutaneous pen (Lantus Solostar U-100 Insulin) torsemide 20 mg tablet 40 mg PO QAM 03/13/25 03/13/25 History Patient History Medical History Statin intolerance Fibromyalgia HLD (hyperlipidemia) T2DM (type 2 diabetes mellitus) Surgical History No pertinent past surgical history Family History Father Stroke Social History Smoking Status: Never smoker Tobacco Type: Cigarettes Hx Alcohol Use: No Hx Substance Use: No Preferred Language: Georgian Communication Ability: Effective Operations Manager/Coordinator Required: No Beliefs That Will Affect Care: None Current Living Situation: Alone Feels Safe at Home: Yes Assistive Devices: Cane and Walker Results & Data Vital Signs (Past 12 Hours) Vital Signs Temp Pulse Pulse Resp BP Pulse Ox O2 Del Method 03/14/25 07:47 36.9 C 86 18 107/67 95 Room Air 03/14/25 07:45 Room Air 03/14/25 07:25 84 03/14/25 04:00 36.6 C 82 18 103/65 97 Room Air Laboratory Results CBC, renal Panel, urine Diagnostic Findings CXR and ECHO
[2025-03-14] MEDS: IRON SUCROSE 300 MG in SODIUM CHLORIDE 0.9% 250 ML IV ONE (15:55)
[2025-03-14] MEDS: EPOETIN ALFA 10,000 UNITS/ML VIAL SQ SCH (18:15)
[2025-03-15 07:33] LABS: Hematocrit (blood only) 25.6 % (37.0-47.0); Hemoglobin 8.1 g/dl (12.0-16.0); Mean Corpuscular Hemoglobin 31.5 pg (25.0-34.0); Mean Corpuscular Volume 99.6 fL (80.0-100.0); Platelet Count 275 K/uL (130-400); RDW Standard Deviation 50.5 fL (36.4-46.3); Red Blood Count 2.57 M/uL (4.20-5.40); White Blood Count 7.96 K/ul (4.8-10.8)
[2025-03-15 07:58] LABS: Anion Gap 6.0 (3-11); Blood Urea Nitrogen 75.0 mg/dl (6-23); Calcium 8.7 mg/dl (8.6-10.3); Carbon Dioxide 27.0 mmol/L (21-32); Chloride 109.0 mmol/L (98-107); Creatinine Clr Calc Pharmacy 10.9 ml/min; Glucose 95.0 mg/dl (70-99(Fasting)); Magnesium 2.4 mg/dl (1.7-2.4); Potassium 4.2 mmol/L (3.5-5.1); Sodium 142.0 mmol/L (136-145)
--- NOTE | 2025-03-15 09:27 | Nephrology Progress Note ---
Date of Service March 15, 2025 Assessment & Plan Admission and Anticipated Discharge Date Admission Date: March 13, 2025 Subjective Assessment & Plan (1) MAGAN (acute kidney injury): MAGAN happened post CABG even needing dialysis [place] [facility] [place]. prior to CABG had creat of 0.97. Creat was downtrending as outpt wit 4.4 on 03/01/25. yesterday was 4.5 but given episode of Syncope, lowish BP will assume she had pre renal cause with volume depletion. Continue IVF for now at least till AM Cr 4.5, BUN 100 on admission. Cr 4.4 on 03/01. Today creat 3.94 so slightly better. continue NS till AM tomorrow as very PO intake even now would like to see her renal function even better before discharge. has h/o major non adherence as well as no good support at home. Totally stop torsemide even at discharge. No uremic Symptoms. NO need of Dialysis. Recheck BMP in AM Avoid nephrotoxic agents if possible. No further workup needed. (2) Acute on chronic anemia: She had Anemia--recent CABG/Severe MAGAN so some anemia is expected. Will give venofer 300 mg now and also procrit [id number] (3) Compression fracture of L1 lumbar vertebra: S---no new issues. Making urine 950 ml yesterday. Labs slowly better. some pain in back. Still very poor oral intake, ROS--- see HPI. 12 Systems otherwise negative Physical Exam Physical Exam: General: Elderly, No distress, laying down in bed, A&Ox3, pleasant, tearful affect, appears comfortable at rest HEENT: Normocephalic, atraumatic, oropharynx dry Respiratory: Normal respiratory effort, CTAB, saturating in upper 90s on RA Cardiovascular: RRR, normal peripheral pulses, no BLE edema Abdomen/GI: Active bowel sounds, soft, nontender to palpation in all quadrants Neurologic: No overt focal deficits Results & Data Vital Signs (Past 12 Hours) Vital Signs Temp Pulse Resp BP BP Pulse Ox O2 Del Method 03/15/25 08:06 36.8 C 87 17 104/64 93 Room Air 03/15/25 02:06 Room Air 03/14/25 22:46 36.7 C 85 18 106/65 93 Room Air
--- NOTE | 2025-03-15 10:36 | Hospitalist Progress Note ---
Date of Service March 15, 2025 Assessment & Plan (1) Syncope and collapse: Plan: Suspect orthostasis (2) Acute on chronic anemia: Plan: Suspect due to renal dysfunction (3) Compression fracture of L1 lumbar vertebra: Plan: Suspect osteoporotic in the setting of a fall (4) Acute retention of urine: (5) Electrolyte abnormality: (6) Acute kidney injury superimposed on stage 3a chronic kidney disease: (7) Elevated troponin: Plan: Due to renal dysfunction (8) CAD, multiple vessel: (9) History of coronary artery bypass graft x 3: (10) Diabetes mellitus type 2, insulin dependent: Plan Patient 74-year-old female presents with syncopal event most likely due to volume depletion and orthostasis. Blood pressures are slowly improving. Continue to monitor Renal function improving with IV fluid hydration, patient with acute kidney injury after CABG. Reviewed nephrology recommendations Urine retention most likely due to pain associate with compression fracture and immobility, maintain Alfonso catheter Continue to monitor glucose cover with insulin Will trial some Reglan for her nausea suspect some gastroparesis with her immobility and her diabetes Continue to encourage therapies Case management to pursue rehab placement suspect patient will eventually be agreeable when she recognizes that being at home is not really a great option for her. Continue pain control for compression fracture that resulted from her syncopal event and fall Admission and Anticipated Discharge Date Admission Date: March 13, 2025 Subjective Patient reports feeling nauseated this morning. Emesis x 1. Needed a fair amount of assistance getting up to the bathroom. Nursing states that she would not be safe to return to independent living. Patient is skeptical of going to any type of rehab again. Physical Exam Physical Exam: Constitutional: Alert, pale, moderately ill in appearance HEENT: Mucous membranes dry Lungs: Clear to auscultation, decreased, no wheezes rales or rhonchi CV: S1-S2, regular, systolic murmur Abdomen: Soft, nontender, nondistended Extremities: No significant edema Neuro: No focal deficits, generally weak Psych: Cooperative, normal mood Results & Data Results & Data Vital Signs (Past 12 Hours) Vital Signs Temp Pulse Resp BP BP Pulse Ox O2 Del Method 03/15/25 08:06 36.8 C 87 17 104/64 93 Room Air 03/15/25 02:06 Room Air 03/14/25 22:46 36.7 C 85 18 106/65 93 Room Air Diagnostic Findings Reviewed imaging, laboratory and diagnostic studies. Pertinent findings as below. WBC 7.9 Hemoglobin 8.1 Platelets of 275 Creatinine 3.94, slightly improved Glucoses reviewed
[2025-03-15] MEDS: METOCLOPRAMIDE HCL INJ 5 MG/ML 2 ML VIAL IV SCH (12:40)
--- NOTE | 2025-03-15 14:44 | Pharmacy Report ---
Pharmacy Glycemic Short Note 2 - Date of Service March 15, 2025 - Glycemic Short BSG Results (Last 24 hours): 03/14/25 03/14/25 03/15/25 17:04 20:20 06:46 Glucose 95 POC Glucose 87 118 H 03/15/25 07:51 Glucose POC Glucose 114 H OUTPATIENT ANTIDIABETIC REGIMEN: * Lantus 15 units SC HS * Novolog SSI A1c = 12.8% (12/21/24) ASSESSMENT: 03/15 * Patient received total of 18 units of insulin yesterday, of which 10 units were basal insulin * Fasting BSG 95 mg/dL - continued with Lantus 5 units this AM * Discussed with RN, patient not eating and not feeling well this AM/nausea&vomiting noted * Will d/c basal insulin due to no PO intake today. Patient refused lunch blood sugar check - RN to discuss with patient the importance of monitoring blood sugar. Loosened CR for later today 03/14 * Zena is a 74 yo T2DM admitted with acute onset severe low back pain after sustaining a fall. Patient found to have lumbar compression fracture. Ortho consulted and recommended conservative management. * Patient has been continued on home regimen of Lantus + Novolog. Lantus dose has been reduced to 5 units BID, which appears to be reasonable thus far. Fasting BSG of 100 mg/dL. * Novolog ordered based on weight/stress 2. Limited post prandial data at this time. Will continue for now. PLAN FOR INPATIENT GLYCEMIC CONTROL: * Basal insulin * Lantus 5 units SQ BID - d/c order * Bolus insulin * NovoLog per scale ACHS or Q6hrs while NPO * Goal Range: Low 120 mg/dL - High 160 mg/dL * Correction Factor: 35 mg/dL/unit * Nutritional / Prandial insulin per carb ratio of 1 unit per 20 grams CHO consumed
[2025-03-16 06:39] LABS: Hematocrit (blood only) 25.7 % (37.0-47.0); Hemoglobin 8.2 g/dl (12.0-16.0); Mean Corpuscular Hemoglobin 31.5 pg (25.0-34.0); Mean Corpuscular Volume 98.8 fL (80.0-100.0); Platelet Count 274 K/uL (130-400); RDW Standard Deviation 50.4 fL (36.4-46.3); Red Blood Count 2.60 M/uL (4.20-5.40); White Blood Count 10.65 K/ul (4.8-10.8)
--- NOTE | 2025-03-16 07:40 | Electrocardiogram Report ---
Test Reason : Blood Pressure : */* mmHG Vent. Rate : 83 BPM Atrial Rate : 83 BPM P-R Int : 150 ms QRS Dur : 66 ms QT Int : 384 ms P-R-T Axes : 50 9 87 degrees QTcB Int : 451 ms Normal sinus rhythm Septal infarct (cited on or before 29-Oct-2021) Abnormal ECG When compared with ECG of 21-Dec-2024 06:08, Criteria for Inferior infarct are no longer Present T wave inversion no longer evident in Anterior leads Confirmed by Kenneth Mcnulty ([id number] on 03/16/2025 7:39:42 AM Referred By: Confirmed By: Kenneth Mcnulty
[2025-03-16 09:41] LABS: Anion Gap 7.0 (3-11); Blood Urea Nitrogen 68.0 mg/dl (6-23); Calcium 8.6 mg/dl (8.6-10.3); Carbon Dioxide 24.0 mmol/L (21-32); Chloride 111.0 mmol/L (98-107); Creatinine Clr Calc Pharmacy 11.8 ml/min; Glucose 84.0 mg/dl (70-99(Fasting)); Potassium 4.3 mmol/L (3.5-5.1); Sodium 142.0 mmol/L (136-145)
--- NOTE | 2025-03-16 12:01 | Hospitalist Progress Note ---
Date of Service March 16, 2025 Assessment & Plan (1) Syncope and collapse: Plan: Suspect orthostasis (2) Acute on chronic anemia: Plan: Suspect due to renal dysfunction (3) Compression fracture of L1 lumbar vertebra: Plan: Suspect osteoporotic in the setting of a fall (4) Acute retention of urine: (5) Electrolyte abnormality: (6) Acute kidney injury superimposed on stage 3a chronic kidney disease: (7) Elevated troponin: Plan: Due to renal dysfunction (8) CAD, multiple vessel: (9) History of coronary artery bypass graft x 3: (10) Diabetes mellitus type 2, insulin dependent: Plan Patient with syncope most likely due to orthostasis, systolic blood pressure significantly improved compared to admission, consistently greater than 100 and Renal function continues to improve with some hydration Transition to oral Reglan Trial of saline lock IV fluid Continue therapies Continue to pursue skilled rehab Maintain Alfonso catheter, suspects some urinary retention/bladder dysfunction due to compression fracture and decreased mobility. Recommend voiding trial when activity is increased. Continue to monitor glucose, cover with insulin Admission and Anticipated Discharge Date Admission Date: March 13, 2025 Subjective Patient states that nausea is significantly improved, Reglan seems to really have helped. Physical Exam Physical Exam: Constitutional: Alert, less pale, less sick in appearance HEENT: Mucous membranes moist. Lungs: Clear to auscultation, decreased, no wheezes rales or rhonchi CV: S1-S2, regular, systolic murmur Abdomen: Soft, nontender, nondistended Extremities: No significant edema Neuro: No focal deficits, weak Psych: Cooperative, normal mood Results & Data Results & Data Vital Signs (Past 12 Hours) Vital Signs Temp Pulse Resp BP BP Pulse Ox O2 Del Method 03/16/25 08:15 36.5 C 82 20 111/67 92 Room Air 03/16/25 00:08 36.8 C 79 20 101/64 94 Room Air Diagnostic Findings Reviewed imaging, laboratory and diagnostic studies. Pertinent findings as below. Hemoglobin 8.2, stable Creatinine 3.64, improving
--- NOTE | 2025-03-16 12:10 | Nephrology Progress Note ---
Date of Service March 16, 2025 Assessment & Plan Admission and Anticipated Discharge Date Admission Date: March 13, 2025 Subjective Assessment & Plan (1) MAGAN (acute kidney injury): MAGAN happened post CABG even needing dialysis briefly at [facility]. prior to CABG had creat of 0.97. Creat was downtrending as outpt wit 4.4 on 03/01/25. yesterday was 4.5 but given episode of Syncope, lowish BP will assume she had pre renal cause with volume depletion. Continue IVF for now at least till AM Cr 4.5, BUN 100 on admission. Cr 4.4 on 03/01. Today creat 3.6 so slightly better. No IV fluid would like to see her renal function even better before discharge. has h/o major non adherence as well as no good support at home. Totally stop torsemide even at discharge. No uremic Symptoms. NO need of Dialysis. Recheck BMP in AM Avoid nephrotoxic agents if possible. No further workup needed. Already has appt with nephrology ( with me) within next few weeks. She should have labs--renal panel and CBC this week even after discharge (2) Acute on chronic anemia: She had Anemia--recent CABG/Severe MAGAN so some anemia is expected. I did give her one dose of venofer 300 mg and also procrit [id number]. Will give another dose of that tomorrow before discharge. She likely will need ZAK as outpt ALSO. (3) Compression fracture of L1 lumbar vertebra: S---no new issues. Lot less nausea now. Making urine 900 ml yesterday. Labs slowly better. some pain in back. Still poor oral intake, ROS--- see HPI. 12 Systems otherwise negative Physical Exam Physical Exam: General: Elderly, No distress, laying down in bed, A&Ox3, pleasant, tearful affect, appears comfortable at rest HEENT: Normocephalic, atraumatic, oropharynx dry Respiratory: Normal respiratory effort, CTAB, saturating in upper 90s on RA Cardiovascular: RRR, normal peripheral pulses, no BLE edema Abdomen/GI: Active bowel sounds, soft, nontender to palpation in all quadrants Neurologic: No overt focal deficits Results & Data Vital Signs (Past 12 Hours) Vital Signs Temp Pulse Resp BP Pulse Ox O2 Del Method 03/16/25 08:15 36.5 C 82 20 111/67 92 Room Air
[2025-03-16] MEDS: POLYETHYLENE (MIRALAX) 17 GM PACK PO PRN (18:18)
[2025-03-16] MEDS: METOCLOPRAMIDE HCL 5 MG TABLET PO SCH (18:22)
[2025-03-17] MEDS: ONDANSETRON INJ 2 MG/ML 2 ML VIAL IV PRN (04:32)
[2025-03-17] MEDS: IRON SUCROSE 300 MG in SODIUM CHLORIDE 0.9% 250 ML IV ONE (06:28)
[2025-03-17] MEDS: EPOETIN ALFA 10,000 UNITS/ML VIAL SQ ONE (06:30)
[2025-03-17 06:49] LABS: Anion Gap 8.0 (3-11); Blood Urea Nitrogen 60.0 mg/dl (6-23); Calcium 8.9 mg/dl (8.6-10.3); Carbon Dioxide 22.0 mmol/L (21-32); Chloride 108.0 mmol/L (98-107); Creatinine Clr Calc Pharmacy 13.1 ml/min; Glucose 106.0 mg/dl (70-99(Fasting)); Potassium 4.9 mmol/L (3.5-5.1); Sodium 138.0 mmol/L (136-145)
[2025-03-17 07:46] LABS: Base Excess VBG -2.0 mEq/L; HCO3 VBG 23 mmol/L; Oxygen Saturation VBG 84.0 %; PCO2 VBG 40 mmHg (38-50); PO2 VBG 48 mmHg; pH VBG 7.37 (7.36-7.41)
--- NOTE | 2025-03-17 09:18 | XRay Report ---
EXAM: XR chest 1V portable CLINICAL HISTORY: low o2 TECHNIQUE: An X-ray image of the chest is obtained in AP projection. COMPARISON: Chest x-ray study dated 03/13/2025. FINDINGS: Pulmonary Parenchyma: Redemonstration of the bilateral accentuated hilar and perihilar bronchovascular markings with cora-bronchial cuffing, showing time interval progression. An ill-defined right cardiac border with an indistinct silhouette and an obliterated right cardiophrenic angle were identified. An ill-defined left cardiac border with an indistinct silhouette and an obliterated left cardiophrenic angle were identified. Time interval increased reticulation and haziness along both lower lung lobes. Obliterated costophrenic angles more on the left side. Heart and Mediastinum: Heart size and shape are within borderline limits, yet couldn't be assessed based on AP projection only. No hilar or mediastinal lymphadenopathy. Bony Thorax: Midline sternotomy radiodense wires were identified. Bony thorax appears intact without fractures or deformities. Soft Tissues: Soft tissues overlying the chest wall are unremarkable. IMPRESSION: 1. Time interval progression of the bilateral hilar and peribronchovascular markings, with the current exam showing indistinct right and left cardiac borders, raising the possibility of underlying consolidation along the right middle and the left lower lung lobes. 2. Time interval increased reticulation and haziness along both lower lung lobes. 3. Bilateral obliterated costophrenic angles are more on the left side, raising the possibility of underlying effusion. 4. Overall, time interval progression of the disease process. A CT chest is advised. Electronically signed by Justin Jones 03-17-2025 09:18 AM
[2025-03-17] MEDS: MAGNESIUM HYDROXIDE SUSP 30 ML UDC PO PRN (09:30)
[2025-03-17] MEDS: FUROSEMIDE 40 MG/4 ML VIAL IV ONE (10:07)
--- NOTE | 2025-03-17 11:53 | Hospitalist Progress Note ---
Date of Service March 17, 2025 Assessment & Plan (1) Syncope and collapse: Plan: Suspect orthostasis (2) Acute on chronic anemia: Plan: Suspect due to renal dysfunction (3) Compression fracture of L1 lumbar vertebra: Plan: Suspect osteoporotic in the setting of a fall (4) Acute retention of urine: (5) Electrolyte abnormality: (6) Acute kidney injury superimposed on stage 3a chronic kidney disease: (7) Elevated troponin: Plan: Due to renal dysfunction (8) CAD, multiple vessel: (9) History of coronary artery bypass graft x 3: (10) Diabetes mellitus type 2, insulin dependent: (11) Cardiac volume overload: Plan Patient's blood pressure is stabilized, initially presented with syncope most likely due to hypotension. This morning acute hypoxia most likely due to volume overload due to fluid resus citation associated with her renal dysfunction. Communication with nephrology, agreeable to IV Lasix. IV Lasix x 1 dose and continue to evaluate Continue with therapies Encourage activity Pursuing rehab placement Titrate oxygen to off, Monitor renal function Admission and Anticipated Discharge Date Admission Date: March 13, 2025 Subjective Events of this morning noted, patient short of breath and hypoxic. Now feeling better after some Lasix. Still intermittently nauseated this morning but was better yesterday Physical Exam Physical Exam: Constitutional: Alert, pale, weak HEENT: Mucous membranes moist. Lungs: Decreased breath sounds, few rales and crackles at bases CV: S1-S2, regular Abdomen: Soft, nontender, nondistended Extremities: No significant edema Neuro: No focal deficits, generally weak Psych: Cooperative, normal mood Results & Data Results & Data Vital Signs (Past 12 Hours) Vital Signs Temp Pulse Resp BP BP Pulse Ox O2 Del Method 03/17/25 08:04 36.7 C 82 20 119/65 97 Room Air 03/17/25 06:22 96 Nasal Cannula 03/17/25 06:20 36.9 C 84 20 109/62 86 L Room Air O2 Flow Rate 03/17/25 08:04 03/17/25 06:22 2 03/17/25 06:20 Diagnostic Findings Reviewed imaging, laboratory and diagnostic studies. Pertinent findings as below. Personally reviewed chest x-ray consistent with pulmonary congestion, Low suspicion for consolidative infiltrative process Creatinine 3.44, improved
--- NOTE | 2025-03-17 17:13 | Nephrology Progress Note ---
Date of Service March 17, 2025 Assessment & Plan Admission and Anticipated Discharge Date Admission Date: March 13, 2025 Subjective Assessment & Plan (1) MAGAN (acute kidney injury): MAGAN happened post CABG even needing dialysis briefly at [facility] [place]. prior to CABG had creat of 0.97. Creat was downtrending as outpt wit 4.4 on 03/01/25. yesterday was 4.5 but given episode of Syncope, lowish BP will assume she had pre renal cause with volume depletion. Continue IVF for now at least till AM Cr 4.5, BUN 100 on admission. Cr 4.4 on 03/01. Today creat 3.4 so slightly better. Had Hypoxia and CXR shows Possible fluid overload also. Got Lasix 40 iv x 1. this is concerning as it makes it quite difficult to manage her overall. She may need some torsemide after all--will decide tomorrow. would like to see her renal function even better before discharge. She has h/o major non adherence as well as no good support at home. No uremic Symptoms. NO need of Dialysis. Recheck BMP in AM Avoid nephrotoxic agents if possible. No further workup needed. Already has appt with nephrology ( with me) within next few weeks. She should have labs--renal panel and CBC this week even after discharge (2) Acute on chronic anemia: She had Anemia--recent CABG/Severe MAGAN so some anemia is expected. I did give her two dose of venofer 300 mg and also procrit [id number]. She likely will need ZAK as outpt (3) Compression fracture of L1 lumbar vertebra: S---Had hypoxia and CXR showed fluid overload. Lot less nausea now. Making urine 700 ml yesterday. Labs slowly better. some pain in back. Still poor oral intake ROS--- see HPI. 12 Systems otherwise negative Physical Exam Physical Exam: General: Elderly, No distress, laying down in bed, A&Ox3, pleasant, tearful affect, appears comfortable at rest HEENT: Normocephalic, atraumatic, oropharynx dry Respiratory: Normal respiratory effort, CTAB, saturating in upper 90s on RA Cardiovascular: RRR, normal peripheral pulses, no BLE edema Abdomen/GI: Active bowel sounds, soft, nontender to palpation in all quadrants Neurologic: No overt focal deficits Results & Data Vital Signs (Past 12 Hours) Vital Signs Temp Pulse Resp BP BP Pulse Ox O2 Del Method 03/17/25 15:28 36.6 C 84 20 104/64 90 Room Air 03/17/25 08:04 36.7 C 82 20 119/65 97 Room Air 03/17/25 06:22 96 Nasal Cannula 03/17/25 06:20 36.9 C 84 20 109/62 86 L Room Air O2 Flow Rate 03/17/25 15:28 03/17/25 08:04 03/17/25 06:22 2 03/17/25 06:20
[2025-03-18 06:27] LABS: Anion Gap 7.0 (3-11); Blood Urea Nitrogen 59.0 mg/dl (6-23); Calcium 8.9 mg/dl (8.6-10.3); Carbon Dioxide 26.0 mmol/L (21-32); Chloride 105.0 mmol/L (98-107); Creatinine Clr Calc Pharmacy 12.5 ml/min; Glucose 111.0 mg/dl (70-99(Fasting)); Potassium 4.8 mmol/L (3.5-5.1); Sodium 138.0 mmol/L (136-145)
--- NOTE | 2025-03-18 08:32 | Pharmacy Report ---
Pharmacy Glycemic Short Note 2 - Date of Service March 18, 2025 - Glycemic Short BSG Results (Last 24 hours): 03/17/25 03/17/25 03/17/25 11:56 16:49 19:32 Glucose POC Glucose 145 H 142 H 97 03/18/25 03/18/25 05:48 07:59 Glucose 111 H POC Glucose 127 H OUTPATIENT ANTIDIABETIC REGIMEN: * Lantus 15 units SC HS * Novolog SSI * A1c = 12.8% (12/21/24) ASSESSMENT: 03/18: * Zena's blood sugars have been well controlled over the last 48 hours, ranging 97-145 mg/dL. Has only required 3-4 units of bolus insulin per day. * Fasting BSG this AM was 127 mg/dL. Continue without basal insulin. * No change in stressors. Not eating much. No change necessary to Novolog. 03/15: * Patient received total of 18 units of insulin yesterday, of which 10 units were basal insulin * Fasting BSG 95 mg/dL - continued with Lantus 5 units this AM * Discussed with RN, patient not eating and not feeling well this AM/nausea&vomiting noted * Will d/c basal insulin due to no PO intake today. Patient refused lunch blood sugar check - RN to discuss with patient the importance of monitoring blood sugar. Loosened CR for later today 03/14: * Zena is a 74 yo T2DM admitted with acute onset severe low back pain after sustaining a fall. Patient found to have lumbar compression fracture. Ortho consulted and recommended conservative management. * Patient has been continued on home regimen of Lantus + Novolog. Lantus dose has been reduced to 5 units BID, which appears to be reasonable thus far. Fasting BSG of 100 mg/dL. * Novolog ordered based on weight/stress 2. Limited post prandial data at this time. Will continue for now. PLAN FOR INPATIENT GLYCEMIC CONTROL: * Basal insulin * None * Bolus insulin * NovoLog per scale ACHS or Q6hrs while NPO * Goal Range: Low 120 mg/dL - High 160 mg/dL * Correction Factor: 35 mg/dL/unit * Nutritional / Prandial insulin per carb ratio of 1 unit per 20 grams CHO consumed
--- NOTE | 2025-03-18 09:05 | Nephrology Progress Note ---
Date of Service March 18, 2025 Assessment & Plan (1) MAGAN (acute kidney injury): Plan: history of MAGAN-D post CABG in December but had recovery enough to d/c w/o dialysis. prior to CABG had creat of 0.97. d/c on torsemide 80 mg daily, creatinine 4.6 on 01/21/25 from [facility]. Creat was stable as outpt at 4.4 on 03/01/25. Admission creatinine on March 13 was 4.5 but given episode of Syncope, lowish BP will assume she had pre renal cause with volume depletion. She was slowly downtrending this admission to mame value 3.4 on March 17. Increased likely due to resuming Lasix one-time dose March 17 due to hypoxic episode/chest pain. -Continue to hold outpatient torsemide No uremic Symptoms. NO need of Dialysis though she is close >>likely needs standing lasix; CT would help to est this and would also help evaluate if there is an emerging pneumonia>>XR findings are likeliest volume related but concern w/ back brace/few deep inspirations/less moving around and XR ff woudl eval for PNA; do note Pro-Ceazr was within normal limits on admission >>>>ordered trial of lasix 30 mg IV bid17 -Recheck BMP in AM Avoid nephrotoxic agents if possible. No further workup needed for RF. Care coordinated w/ Dr Smith in [place] and via [employer] re diuretic dosing, volume status, anemia through the morning; we are in agreement. (2) Acute on chronic anemia: Plan: She had Anemia--recent CABG/Severe MAGAN so some anemia is expected. March 14 TSAT is 13% On March 17 had venofer 300 mg and also procrit [id number] -Evaluate whether further Venofer appropriate based on whether any pneumonia present/needing treatment Daily hemoglobin and given recent CABG would have transfusion threshold of 8.0 mg/dL; hemoglobin today 8.2 (3) Compression fracture of L1 lumbar vertebra: Plan: Per primary service Admission and Anticipated Discharge Date Admission Date: March 13, 2025 Subjective 1. 4 L negative after 40 mg IV Lasix dose x 1 yesterday. Chest x-ray with new findings as below. no chest pain today, none like she had yesterday; some dyspnea lying on L side in bed w/ HOB up; pain mostly w/ wearing brace back pain; CC is constipation no bm x 6 days and some abd discomfort w/ this Review of Systems 2 Review of Systems: All systems reviewed & are unremarkable except as noted in Subjective Physical Exam 2 Constitutional: well developed (lying on L side in bed on RA), well nourished, + obese, + frail appearing and cooperative Eyes: EOM intact bilaterally ENMT: Mouth: + dry oral mucous membranes (slight) Neck: no nuchal rigidity Respiratory: + labored breathing (slight), able to sp eak in complete sentences and + tachypneic; no cough Auscultation: + diminished lung sounds and + crackles (R sided middle and lower lobes ) Cardiovascular: Rate/Rhythm: regular rate and regular rhythm Extremities: n o edema Gastrointestinal (Abdomen): Inspection/Auscultation: normal bowel sounds P ercussion/Palpation: abdomen soft; abdomen nontender Musculoskeletal: Extremities: strength 5/5 throughout Skin: no rashes, warm and dry Neurologic: [place], fluent speech, no tremor Genitourinary: torres present Results & Data Vital Signs (Past 12 Hours) Vital Signs Temp Pulse Resp BP Pulse Ox O2 Del Method O2 Flow Rate 03/18/25 07:42 36.7 C 82 17 102/61 96 Nasal Cannula 2 03/17/25 23:01 36.7 C 85 18 109/64 95 Nasal Cannula 2 Laboratory Results 03/16/25 06:02 03/18/25 05:48 Diagnostic Findings Chest x-ray March 17 (images personally reviewed, agree with report) 1. Time interval progression of the bilateral hilar and peribronchovascular markings, with the current exam showing indistinct right and left cardiac borders, raising the possibility of underlying consolidation along the right middle and the left lower lung lobes. 2. Time interval increased reticulation and haziness along both lower lung lobes. 3. Bilateral obliterated costophrenic angles are more on the left side, raising the possibility of underlying effusion. 4. Overall, time interval progression of the disease process. A CT chest is advised.
[2025-03-18] MEDS: FUROSEMIDE 40 MG/4 ML VIAL IV SCH (11:57)
[2025-03-18] MEDS: DOCUSATE SODIUM 100 MG CAP PO SCH (11:58)
[2025-03-18] MEDS: POLYETHYLENE (MIRALAX) 17 GM PACK PO SCH (11:58)
--- NOTE | 2025-03-18 12:22 | CT Scan Report ---
CT SCAN OF THE CHEST WITHOUT IV CONTRAST CLINICAL HISTORY: Hypoxia COMPARISON STUDY: Chest x-ray dated 03/17/2025. Chest CT dated 12/20/2024. Lumbar spine CT dated 2024. TECHNIQUE: CT scan of the thorax was performed from the thoracic inlet to the upper abdomen. Images are reviewed in the axial, sagittal, and coronal planes. IV contrast was not administered for this ex amination as per the referring clinician. A dose lowering technique was utilized adhering to the batool Leon. CT DOSE: 408.98 mGy.cm FINDINGS: Thyroid: Normal in size and heterogeneous in attenuation. Thoracic aorta: There is mild atherosclerotic calcification of the thoracic aorta, which is normal in caliber and demonstrates standard 3-vessel arch anatomy. Heart: The patient is status post midline sternotomy. The heart is mildly enlarged noting trace peric ardial effusion. There is coronary artery atherosclerosis. Lungs and pleural spaces: Parenchyma is degraded by motion artifact. There are small pleural effusion s, right larger than left with dependent consolidation. There are patchy tree-in-bud opacities throug hout the right upper lobe. The trachea and central airways are clear. Mediastinum: A prominent subcarinal node measures 1.5 cm in short axis. No pathologically enlarged ly mph nodes are seen. Marah: Not well assessed without IV contrast. Axillae: There is no axillary lymphadenopathy. Upper abdomen: There is a 2.7 cm left lobe hepatic cyst. Partially visualized upper abdominal viscera is otherwise within normal limits. Skeletal structures: The skeletal structures are osteopenic. Again seen is a comminuted acute superio r endplate compression fracture of L1. Paravertebral edema is observed. There is a minimal superior e ndplate compression fracture of T12 which is also likely acute to subacute. No lytic or blastic bony lesions are seen. IMPRESSION: 1. Small pleural effusions, right larger than left with dependent consolidation. This likely represen ts atelectasis and clinical correlation will be required. 2. Cardiomegaly. 3. Patchy tree-in-bud opacities in the right upper lobe are likely infectious/inflammatory. A follow- up chest CT in 3-4 months time is recommended to document resolution. 4. A comminuted superior endplate compression fracture of L1 is again noted and unchanged from 025. There is also likely a minimal acute to subacute superior endplate compression fracture of T12. 5. Additional findings as above. ACT 112: Negative or not required by law. Electronically signed by: David Haley M.D. 03/18/2025 12:20 PM
[2025-03-18 13:25] LABS: Hematocrit (blood only) 27.0 % (37.0-47.0); Hemoglobin 8.8 g/dl (12.0-16.0); Mean Corpuscular Hemoglobin 32.6 pg (25.0-34.0); Mean Corpuscular Volume 100.0 fL (80.0-100.0); Platelet Count 317 K/uL (130-400); RDW Standard Deviation 51.9 fL (36.4-46.3); Red Blood Count 2.70 M/uL (4.20-5.40); White Blood Count 12.80 K/ul (4.8-10.8)
--- NOTE | 2025-03-18 14:33 | Hospitalist Progress Note ---
Date of Service March 18, 2025 Assessment & Plan (1) Syncope and collapse: Plan: Suspect orthostasis (2) Cardiac volume overload: (3) Acute on chronic anemia: Plan: Suspect due to renal dysfunction (4) Compression fracture of L1 lumbar vertebra: Plan: Suspect osteoporotic in the setting of a fall (5) Acute retention of urine: (6) Electrolyte abnormality: (7) Acute kidney injury superimposed on stage 3a chronic kidney disease: (8) Elevated troponin: Plan: Due to renal dysfunction (9) CAD, multiple vessel: (10) History of coronary artery bypass graft x 3: (11) Diabetes mellitus type 2, insulin dependent: Plan Patient initially presented with syncope due to orthostasis. Blood pressures have stabilized. Renal function has improved with volume resuscitation, acute kidney injury from recent cardiac cath. However, patient volume overloaded with evidence of bilateral pleural effusions. Suspect patient's oxygen requirement at nighttime due to pleural effusions and volume overloaded state. Communication with nephrology, requesting CT of the chest to help guide diuretic management. Reviewed CT scan, WBC slightly increased, procalcitonin essentially normal. Patient has not had any fevers or symptoms of developing pneumonia. Suspect findings most likely all due to volume overload, however will empirically treat for possible developing pneumonia with oral antibiotics Communication with case management, patient has authorization to [facility]. Hopefully can coordinate discharge tomorrow Continue to monitor glucose cover with sliding scale Continue to encourage therapies Patient doing well with oral Reglan for suspected gastroparesis associate with the diabetes and immobility Voiding trial today, remove Alfonso catheter. Patient did have some retention at the time of admission, replace Alfonso if continued issues with retention with plans to do voiding trial after discharge when she is more mobile and active if she fails today's voiding trial. Admission and Anticipated Discharge Date Admission Date: March 13, 2025 Subjective Patient feeling significantly improved today. Sitting up in chair. No shortness of breath. Did well with breakfast. Physical Exam Physical Exam: Constitutional: Alert, nontoxic, sitting in chair HEENT: Mucous membranes moist. Lungs: Decreased breath sounds at bases with a few crackles CV: S1-S2, regular Abdomen: Soft, nontender, nondistended Extremities: No significant edema Musculoskeletal, wearing lumbar support brace Neuro: No focal deficits, generally weak Psych: Cooperative, normal mood Results & Data Results & Data Vital Signs (Past 12 Hours) Vital Signs Temp Pulse Resp BP Pulse Ox O2 Del Method O2 Flow Rate 03/18/25 11:45 36.7 C 86 18 118/72 90 Room Air 03/18/25 10:15 Room Air 03/18/25 07:42 36.7 C 82 17 102/61 96 Nasal Cannula 2 Diagnostic Findings Reviewed imaging, laboratory and diagnostic studies. Pertinent findings as below. WBCs 12.8 Hemoglobin 8.8 Platelets 317 Electrolytes stable Creatinine 3.65, slightly increased Procalcitonin 0.[address] images, bilateral pleural effusions consistent with volume overload. I reviewed radiology report, noted possibly developing i nfiltrate right upper lobe.
[2025-03-18] MEDS: DOXYCYCLINE HYCLATE 100 MG CAP PO SCH (15:17)
[2025-03-19 07:05] LABS: Hematocrit (blood only) 24.9 % (37.0-47.0); Hemoglobin 7.9 g/dl (12.0-16.0); Mean Corpuscular Hemoglobin 31.2 pg (25.0-34.0); Mean Corpuscular Volume 98.4 fL (80.0-100.0); Platelet Count 314 K/uL (130-400); RDW Standard Deviation 51.7 fL (36.4-46.3); Red Blood Count 2.53 M/uL (4.20-5.40); White Blood Count 9.75 K/ul (4.8-10.8)
[2025-03-19 07:22] LABS: Anion Gap 9.0 (3-11); Blood Urea Nitrogen 63.0 mg/dl (6-23); Calcium 9.1 mg/dl (8.6-10.3); Carbon Dioxide 26.0 mmol/L (21-32); Chloride 102.0 mmol/L (98-107); Creatinine Clr Calc Pharmacy 12.0 ml/min; Glucose 115.0 mg/dl (70-99(Fasting)); Potassium 4.4 mmol/L (3.5-5.1); Sodium 137.0 mmol/L (136-145)
--- NOTE | 2025-03-19 10:03 | Nephrology Progress Note ---
Date of Service March 19, 2025 Assessment & Plan (1) MAGAN (acute kidney injury): Plan: history of MAGAN-D post CABG in December but had recovery enough to d/c w/o dialysis. prior to CABG had creat of 0.97. d/c on torsemide 80 mg daily, creatinine 4.6 on 01/21/25 from [facility]. Creat was stable as outpt at 4.4 on 03/01/25. Admission creatinine on March 13 was 4.5 but given episode of Syncope, lowish BP will assume she had pre renal cause with volume depletion. She was slowly downtrending this admission to mame value 3.4 on March 17. Increased 03/18 likely due to resuming Lasix one-time dose March 17 due to hypoxic episode/chest pain. -Continue to hold outpatient torsemide No uremic Symptoms. NO need of Dialysis though she is close >>likely needs standing lasix; CT would help to est this and would also help evaluate if there is an emerging pneumonia>>XR findings are likeliest volume related but concern w/ back brace/few deep inspirations/less moving around and XR ff woudl eval for PNA; do note Pro-Cezar was within normal limits on admission >>>>ordered trial of lasix 30 mg IV bid17 starting yesterday >> only 400 negative today >>ramped up today to bumex 1 mg three daily doses today then standing tomorrow and cancel lasix >>pt very debilitated and too tired to do PT yesterday; therefore unreliable/unlikely to do daily standing weights >> needs STRICT I/O >>started 1.5L FR -Recheck BMP in AM Avoid nephrotoxic agents if possible. No further workup needed for RF but concern that if we cannot diurese her adequately she may need dialysis I spent 35 minutes reviewing this w/ pt and explaining current advanced renal disease, strong possibility of needing dialysis in near future even if she leaves here w/o being on it. Tearful pt but will cont to discuss Care coordinated w/ Dr Marie via TText re diuretic dosing, volume status, anemia through the morning; we are in agreement. (2) Acute on chronic anemia: Plan: She had Anemia--recent CABG/Severe MAGAN so some anemia is expected. March 14 TSAT is 13% On March 17 had venofer 300 mg and also procrit [id number] >will give another 300 mg venofer as no active infection Daily hemoglobin and given recent CABG would have transfusion threshold of 8.0 mg/dL; hemoglobin today 7.9; reviewed w/ Dr Galvin (3) Compression fracture of L1 lumbar vertebra: Plan: Per primary service Admission and Anticipated Discharge Date Admission Date: March 13, 2025 Subjective no interval events; workign w/ PT at getting in and out of bed w/ less pain, ambulated in halls Review of Systems 2 Review of Systems: All systems reviewed & are unremarkable except as noted in Subjective Physical Exam 2 Constitutional: well developed (lying in bed on RA), well nourished, + obese, + frail appearing and cooperative Eyes: EOM intact bilaterally ENMT: Mouth: + dry oral mucous membranes (slight) Neck: no nuchal rigidity Respiratory: + labored breathing (slight), able to sp eak in complete sentences and + tachypneic; no cough Auscultation: + diminished lung sounds and + crackles (R sided middle and lower lobes ) Cardiovascular: Rate/Rhythm: regular rate and regular rhythm Extremities: n o edema Gastrointestinal (Abdomen): Inspection/Auscultation: normal bowel sounds P ercussion/Palpation: abdomen soft; abdomen nontender Musculoskeletal: Extremities: strength 5/5 throughout Skin: no rashes, warm and dry Results & Data Vital Signs (Past 12 Hours) Vital Signs Temp Pulse Resp BP Pulse Ox O2 Del Method O2 Flow Rate 03/19/25 08:26 36.5 C 85 17 115/63 97 Nasal Cannula 2 03/19/25 07:35 Room Air 03/19/25 00:08 36.5 C 81 20 110/65 92 Nasal Cannula 2 Laboratory Results 03/19/25 05:33 03/19/25 05:[address] chest non con Thyroid: Normal in size and heterogeneous in attenuation. Thoracic aorta: There is mild atherosclerotic calcification of the thoracic aorta, which is normal in caliber and demonstrates standard 3-vessel arch anatomy. Heart: The patient is status post midline sternotomy. The heart is mildly enlarged noting trace pericardial effusion. There is coronary artery atherosclerosis. Lungs and pleural spaces: Parenchyma is degraded by motion artifact. There are small pleural effusions, right larger than left with dependent consolidation. There are patchy tree-in-bud opacities throughout the right upper lobe. The trachea and central airways are clear. Mediastinum: A prominent subcarinal node measures 1.5 cm in short axis. No pathologically enlarged lymph nodes are seen. Marah: Not well assessed without IV contrast. Axillae: There is no axillary lymphadenopathy. Upper abdomen: There is a 2.7 cm left lobe hepatic cyst. Partially visualized upper abdominal viscera is otherwise within normal limits. Skeletal structures: The skeletal structures are osteopenic. Again seen is a comminuted acute superior endplate compression fracture of L1. Paravertebral edema is observed. There is a minimal superior endplate compression fracture of T12 which is also likely acute to subacute. No lytic or blastic bony lesions are seen. IMPRESSION: 1. Small pleural effusions, right larger than left with dependent consolidation. This likely represents atelectasis and clinical correlation will be required. 2. Cardiomegaly. 3. Patchy tree-in-bud opacities in the right upper lobe are likely infectious/inflammatory. A follow-up chest CT in 3-4 months time is recommended to document resolution. 4. A comminuted superior endplate compression fracture of L1 is again noted and unchanged from 03/13/2025. There is also likely a minimal acute to subacute superior endplate compression fracture of T12. 5. Additional findings as above.
[2025-03-19] MEDS: BUMETANIDE 1 MG in SYRINGE 0 ML IV ONE (11:49)
[2025-03-19] MEDS: IRON SUCROSE 300 MG in SODIUM CHLORIDE 0.9% 250 ML IV ONE (11:49)
--- NOTE | 2025-03-19 13:12 | Hospitalist Progress Note ---
Date of Service March 19, 2025 Assessment & Plan (1) Syncope and collapse: Plan: Suspect orthostasis Complicated by acute renal failure with dehydration Condition is improved the patient remains free from any symptoms at rest [facility] likely discharge tomorrow to continue rehab (2) Cardiac volume overload: Plan: Evidence of fluid overload on CT scan of the chest Has been getting intravenous diuretics Will maintain intake output chart and monitor electrolytes (3) Acute on chronic anemia: Plan: Suspect due to renal dysfunction No evidence of acute blood loss and hemoglobin noted to be low at 7.9 Will repeat CBC in the afternoon and if the hemoglobin remains below 8 we will give 1 unit of blood transfusion given the cardiac history (4) Compression fracture of L1 lumbar vertebra: Plan: Suspect osteoporotic in the setting of a fall Strongly advised to use the brace while ambulating and take pain medications as needed (5) Acute retention of urine: (6) Electrolyte abnormality: (7) Acute kidney injury superimposed on stage 3a chronic kidney disease: Plan: Appreciate nephrology input and recommendation Has been getting intravenous diuretics for fluid overload Will monitor electrolytes and likely discharge tomorrow (8) Elevated troponin: Plan: Due to renal dysfunction (9) CAD, multiple vessel: (10) History of coronary artery bypass graft x 3: (11) Diabetes mellitus type 2, insulin dependent: Plan: Blood sugar remains stable Continue current diabetic management Plan Notes from prior hospitalist: Patient initially presented with syncope due to orthostasis. Blood pressures have stabilized. Renal function has improved with volume resuscitation, acute kidney injury from recent cardiac cath. However, patient volume overloaded with evidence of bilateral pleural effusions. Suspect patient's oxygen requirement at nighttime due to pleural effusions and volume overloaded state. Communication with nephrology, requesting CT of the chest to help guide diuretic management. Reviewed CT scan, WBC slightly increased, procalcitonin essentially normal. Patient has not had any fevers or symptoms of developing pneumonia. Suspect findings most likely all due to volume overload, however will empirically treat for possible developing pneumonia with oral antibiotics Communication with case management, patient has authorization to [facility]. Hopefully can coordinate discharge tomorrow Continue to monitor glucose cover with sliding scale Continue to encourage therapies Patient doing well with oral Reglan for suspected gastroparesis associate with the diabetes and immobility Voiding trial today, remove Alfonso catheter. Patient did have some retention at the time of admission, replace Alfonso if continued issues with retention with plans to do voiding trial after discharge when she is more mobile and active if she fails today's voiding trial. Admission and Anticipated Discharge Date Admission Date: March 13, 2025 Subjective 03/19/2025 Patient was seen and examined in medical telemetry unit He has been complaining of more back pain today Does not have any shortness of breath, palpitation or chest pain Denies any other significant symptoms Review of Systems Review of Systems: All systems reviewed and are unremarkable except as noted below Physical Exam Physical Exam: Lying in bed without any acute distress Constitutional: well developed, well nourished, + ill appearing and + obese Eyes: PERRL, conjunctivae normal, anicteric sclerae ENMT: external ear and nose normal, oropharynx normal Neck: trachea midline, no thyromegaly Respiratory: no respiratory distress Auscultation: + diminished lung sounds (Minimal crackles at the bases) Cardiovascular: Rate/Rhythm: regular rate and regular rhythm; not tachycardic Heart Sounds: normal S1 and normal S2; no murmur Extremities: no edema Gastrointestinal (Abdomen): Inspection/Auscultation: normal bowel sounds; abdomen not distended Percussion/Palpation: abdomen soft; abdomen nontender Musculoskeletal: No acute arthritis involving any of the joint. Complains back pain upper thoracic area Neurologic: normal touch/pain/proprioception and moves all extremities; no focal motor deficits Psychiatric: A+Ox3, euthymic affect Lymphatic: no cervical or axillary lymphadenopathy Results & Data Results & Data Vital Signs (Past 12 Hours) Vital Signs Temp Pulse Resp BP Pulse Ox O2 Del Method O2 Flow Rate 03/19/25 08:26 36.5 C 85 17 115/63 97 Nasal Cannula 2 03/19/25 07:35 Room Air Laboratory Results Short CBC 03/18/25 03/19/25 Range/Units 12:59 05:33 WBC 12.80 H 9.75 (4.8-10.8) K/ul Hgb 8.8 L 7.9 L (12.0-16.0) g/dl Hct 27.0 L 24.9 L (37.0-47.0) % Plt Count 317 314 (130-400) K/uL BMP 03/19/25 05:33 Sodium 137 Potassium 4.4 Chloride 102 Carbon Dioxide 26 BUN 63 H Creatinine 3.72 H Glucose 115 H Calcium 9.1 Medications Administered Current Inpatient Medications Acetaminophen (Acetaminophen 500 Mg Tab) 1,000 mg PO TID [facility] Stop: 04/13/25 08:59 Last Admin: 03/19/25 08:54 Dose: 1,000 mg Aspirin (Aspirin 81 Mg Ectab) 81 mg PO QAM [facility] Stop: 04/13/25 08:59 Last Admin: 03/19/25 08:55 Dose: 81 mg Clopidogrel Bisulfate (Clopidogrel Bisulfate 75 Mg Tab) 75 mg PO QAM [facility] Stop: 04/13/25 08:59 Last Admin: 03/19/25 08:55 Dose: 75 mg Dextrose (Dextrose 50% 50 Ml Syringe) 25 - 50 ml IV UD PRN; Protocol PRN Reason: Hypoglycemia Protocol Stop: 04/12/25 15:08 Docusate Sodium (Docusate Sodium 100 Mg Cap) 100 mg PO BID [facility] Stop: 04/17/25 09:14 Last Admin: 03/19/25 09:07 Dose: Not Given Doxycycline Hyclate (Doxycycline Hyclate 100 Mg Cap) 100 mg PO BID [facility] Stop: 03/23/25 14:59 Last Admin: 03/19/25 08:56 Dose: 100 mg Escitalopram Oxalate (Escitalopram Oxalate 10 Mg Tab) 10 mg PO [facility] Stop: 04/13/25 08:59 Last Admin: 03/19/25 08:56 Dose: 10 mg Famotidine (Famotidine 20 Mg Tab) 20 mg PO QAM [facility] Stop: 04/13/25 08:59 Last Admin: 03/19/25 09:06 Dose: 20 mg Glucagon (Glucagon For Inj 1 Mg Vial) 1 mg SQ UD PRN; Protocol PRN Reason: Hypoglycemia Protocol Stop: 04/12/25 15:08 Glucose (Glucose 40% Gel 15 Gm Tube) 15 - 30 gm PO UD PRN; Protocol PRN Reason: Hypoglycemia Protocol Stop: 04/12/25 15:08 Glucose (Glucose 10 Tab/Tube) 4 - 8 tab PO UD PRN; Protocol PRN Reason: Hypoglycemia Protocol Stop: 04/12/25 15:08 Bumetanide 1 mg/ Syringe 4 mls @ 4 mls/min IV TODAY@1430,1830 [facility] Stop: 03/19/25 18:30 Bumetanide 1 mg/ Syringe 4 mls @ 4 mls/min IV TID@0900,1300,1800 [facility] Stop: 04/19/25 08:59 Insulin Aspart (Insulin Aspart Per Unit Charge) 0 units SC ACHS [facility] Stop: 04/12/25 16:29 Last Admin: 03/19/25 13:08 Dose: 2 units Lidocaine (Lidocaine 5% 1 Patch) 1 patch TD QAM [facility] Stop: 04/13/25 08:59 Last Admin: 03/19/25 08:56 Dose: 1 patch Magnesium Hydroxide (Magnesium Hydroxide Susp 30 Ml Udc) 30 ml PO Q12H PRN PRN Reason: Constipation Stop: 04/12/25 18:36 Last Admin: 03/17/25 09:30 Dose: 30 ml Metoclopramide HCl (Metoclopramide Hcl 5 Mg Tablet) 5 mg PO ACHS [facility] Stop: 04/15/25 16:29 Last Admin: 03/19/25 11:49 Dose: 5 mg Miscellaneous (Carbohydrates For Hypoglycemia ) 15 - 30 gm PO UD PRN PRN Reason: Hypoglycemia Protocol Stop: 04/12/25 15:08 Miscellaneous (Remove Lidoderm Patch) 1 each N/A DAILY@2100 [facility] Stop: 04/13/25 00:00 Last Admin: 03/18/25 21:30 Dose: 1 each Miscellaneous Information (Pharmacy Glycemic Mgmt Consult) 1 each N/A UD PRN PRN Reason: Consult Stop: 04/12/25 15:08 [facility]ivit[facility] ([facility] Tab) [facility] [place]: 04/13/25 08:59 Last Admin: 03/19/25 08:56 Dose: 1 tab Ondansetron HCl (Ondansetron Inj 2 Mg/Ml 2 Ml Vial) 4 mg IV Q6H PRN PRN Reason: Nausea Stop: 04/12/25 18:36 Last Admin: 03/17/25 04:32 Dose: 4 mg Oxycodone HCl (Oxycodone Hcl Ir 5 Mg Tab (Immediate Release)) 5 mg PO Q4H PRN PRN Reason: Mod-Sev Pain (Scale 4-10) Stop: 03/27/25 16:49 Last Admin: 03/16/25 21:05 Dose: 5 mg Polyethylene Glycol (Polyethylene (Miralax) 17 Gm Pack) 17 gm PO DAILY [facility] Stop: 04/17/25 09:14 Last Admin: 03/19/25 09:07 Dose: Not Given Vitamin D (Cholecalciferol 25 Mcg (1000 Units) Tab) 50 mcg PO [facility] Stop: 04/13/25 08:59 Last Admin: 03/19/25 08:56 Dose: 50 mcg
[2025-03-19] MEDS: BUMETANIDE 1 MG in SYRINGE 0 ML IV SCH (14:16)
[2025-03-19 17:37] LABS: Hematocrit (blood only) 25.4 % (37.0-47.0); Hemoglobin 8.2 g/dl (12.0-16.0); Immature Granulocytes # (auto) 0.07 K/uL (0.01-0.20); Immature Granulocytes % (auto) 0.7 %; Mean Corpuscular Hemoglobin 32.0 pg (25.0-34.0); Mean Corpuscular Volume 99.2 fL (80.0-100.0); Platelet Count 339 K/uL (130-400); RDW Standard Deviation 52.0 fL (36.4-46.3); Red Blood Count 2.56 M/uL (4.20-5.40); White Blood Count 9.94 K/ul (4.8-10.8)
[2025-03-20 07:08] LABS: Hematocrit (blood only) 27.0 % (37.0-47.0); Hemoglobin 8.7 g/dl (12.0-16.0); Immature Granulocytes # (auto) 0.09 K/uL (0.01-0.20); Immature Granulocytes % (auto) 1.1 %; Mean Corpuscular Hemoglobin 31.9 pg (25.0-34.0); Mean Corpuscular Volume 98.9 fL (80.0-100.0); Platelet Count 376 K/uL (130-400); RDW Standard Deviation 51.7 fL (36.4-46.3); Red Blood Count 2.73 M/uL (4.20-5.40); White Blood Count 8.40 K/ul (4.8-10.8)
[2025-03-20 07:35] LABS: Anion Gap 11.0 (3-11); Blood Urea Nitrogen 64.0 mg/dl (6-23); Calcium 9.4 mg/dl (8.6-10.3); Carbon Dioxide 27.0 mmol/L (21-32); Chloride 99.0 mmol/L (98-107); Creatinine Clr Calc Pharmacy 11.8 ml/min; Glucose 121.0 mg/dl (70-99(Fasting)); Potassium 4.0 mmol/L (3.5-5.1); Sodium 137.0 mmol/L (136-145)
[2025-03-20] MEDS: BUMETANIDE 1 MG in SYRINGE 0 ML IV SCH (08:30)
--- NOTE | 2025-03-20 09:36 | Hospitalist Progress Note ---
Date of Service March 20, 2025 Assessment & Plan (1) Syncope and collapse: Plan: Suspect orthostasis Complicated by acute renal failure with dehydration Condition is improved the patient remains free from any symptoms at rest Has been accepted to [facility] likely discharge tomorrow to continue rehab Remains medically stable and does not have any significant symptoms except weakness (2) Cardiac volume overload: Plan: Evidence of fluid overload on CT scan of the chest Has been getting intravenous diuretics Will maintain intake output chart and monitor electrolytes Cumulative fluid balance remains +[id number] but the patient remains free from any symptoms Has been getting intravenous diuretics with oral metolazone to take out more fluid from the system Not yet ready to be discharged and likely to be discharged on Tuesday 8 provided renal function remains stable and does not require dialysis (3) Acute on chronic anemia: Plan: Suspect due to renal dysfunction No evidence of acute blood loss and hemoglobin noted to be low at 7.9 Will repeat CBC in the afternoon and if the hemoglobin remains below 8 we will give 1 unit of blood transfusion given the cardiac history Hemoglobin went up to 8.7 as of today (4) Compression fracture of L1 lumbar vertebra: Plan: Suspect osteoporotic in the setting of a fall Strongly advised to use the brace while ambulating and take pain medications as needed Still has minimal pain with movement (5) Acute retention of urine: (6) Electrolyte abnormality: (7) Acute kidney injury superimposed on stage 3a chronic kidney disease: Plan: Appreciate nephrology input and recommendation Has been getting intravenous diuretics for fluid overload Will monitor electrolytes and likely discharge tomorrow Creatinine remains stable at 3.80 (8) Elevated troponin: Plan: Due to renal dysfunction (9) CAD, multiple vessel: (10) History of coronary artery bypass graft x 3: (11) Diabetes mellitus type 2, insulin dependent: Plan: Blood sugar remains stable Continue current diabetic management Plan Notes from prior hospitalist: Patient initially presented with syncope due to orthostasis. Blood pressures have stabilized. Renal function has improved with volume resuscitation, acute kidney injury from recent cardiac cath. However, patient volume overloaded with evidence of bilateral pleural effusions. Suspect patient's oxygen requirement at nighttime due to pleural effusions and volume overloaded state. Communication with nephrology, requesting CT of the chest to help guide diuretic management. Reviewed CT scan, WBC slightly increased, procalcitonin essentially normal. Patient has not had any fevers or symptoms of developing pneumonia. Suspect findings most likely all due to volume overload, however will empirically treat for possible developing pneumonia with oral antibiotics Communication with case management, patient has authorization to Center care. Hopefully can coordinate discharge tomorrow Continue to monitor glucose cover with sliding scale Continue to encourage therapies Patient doing well with oral Reglan for suspected gastroparesis associate with the diabetes and immobility Voiding trial today, remove Alfonso catheter. Patient did have some retention at the time of admission, replace Alfonso if continued issues with retention with plans to do voiding trial after discharge when she is more mobile and active if she fails today's voiding trial. Admission and Anticipated Discharge Date Admission Date: March 13, 2025 Subjective 03/19/2025 Patient was seen and examined in medical telemetry unit He has been complaining of more back pain today Does not have any shortness of breath, palpitation or chest pain Denies any other significant symptoms 03/20/2025 The patient was seen and examined in medical telemetry unit She did not have a good sleep last night and feels tired this morning On asking questions she mentioned to have some pain in the chest last night very nonspecific though Denies any other significant symptoms Review of Systems Review of Systems: All systems reviewed and unremarkable except as noted below Physical Exam Physical Exam: Lying in bed without any acute distress Constitutional: well developed, well nourished, + ill appearing and + obese Eyes: PERRL, conjunctivae normal, anicteric sclerae ENMT: external ear and nose normal, oropharynx normal Neck: trachea midline, no thyromegaly Respiratory: no respiratory distress Auscultation: + diminished lung sounds (Minimal crackles at the bases) Cardiovascular: Rate/Rhythm: regular rate and regular rhythm; not tachycardic Heart Sounds: normal S1 and normal S2; no murmur Extremities: no edema Gastrointestinal (Abdomen): Inspection/Auscultation: normal bowel sounds; abdomen not distended Percussion/Palpation: abdomen soft; abdomen nontender Skin: Minimal bruising involving the mid lateral right leg Neurologic: normal touch/pain/proprioception and moves all extremities; no focal motor deficits Psychiatric: A+Ox3, euthymic affect Lymphatic: no cervical or axillary lymphadenopathy Results & Data Results & Data Vital Signs (Past 12 Hours) Vital Signs Temp Pulse Resp BP BP Pulse Ox O2 Del Method 03/20/25 07:39 36.8 C 88 20 123/68 90 Room Air 03/19/25 22:47 36.7 C 80 16 123/80 94 Room Air 03/19/25 21:51 38.2 C H 79 16 153/77 H 92 Room Air Laboratory Results Short CBC 03/19/25 03/20/25 Range/Units 16:55 06:38 WBC 9.94 8.40 (4.8-10.8) K/ul Hgb 8.2 L 8.7 L (12.0-16.0) g/dl Hct 25.4 L 27.0 L (37.0-47.0) % Plt Count 339 376 (130-400) K/uL BMP 03/20/25 06:38 Sodium 137 Potassium 4.0 Chloride 99 Carbon Dioxide 27 BUN 64 H Creatinine 3.80 H Glucose 121 H Calcium 9.4 Medications Administered Current Inpatient Medications Acetaminophen (Acetaminophen 500 Mg Tab) 1,000 mg PO TID [facility] Stop: 04/13/25 08:59 Last Admin: 03/20/25 08:34 Dose: 1,000 mg Aspirin ([facility] 81 Mg Ectab) [facility] Stop: 04/13/25 08:59 Last Admin: 03/20/25 08:31 Dose: 81 mg Clopidogrel Bisulfate (Clopidogrel Bisulfate 75 Mg Tab) [facility] Stop: 04/13/25 08:59 Last Admin: 03/20/25 08:31 Dose: 75 mg Dextrose (Dextrose 50% 50 Ml Syringe) 25 - 50 ml IV UD PRN; Protocol PRN Reason: Hypoglycemia Protocol Stop: 04/12/25 15:08 Docusate Sodium (Docusate Sodium 100 Mg Cap) 100 mg PO BID [facility] Stop: 04/17/25 09:14 Last Admin: 03/20/25 08:25 Dose: Not Given Doxycycline Hyclate (Doxycycline Hyclate 100 Mg Cap) 100 mg PO BID [facility] Stop: 03/23/25 14:59 Last Admin: 03/20/25 08:31 Dose: 100 mg Escitalopram Oxalate (Escitalopram Oxalate 10 Mg Tab) [facility] Stop: 04/13/25 08:59 Last Admin: 03/20/25 08:26 Dose: Not Given Famotidine (Famotidine 20 Mg Tab) [facility] Stop: 04/13/25 08:59 Last Admin: 03/20/25 08:34 Dose: 20 mg Glucagon (Glucagon For Inj 1 Mg Vial) 1 mg SQ UD PRN; Protocol PRN Reason: Hypoglycemia Protocol Stop: 04/12/25 15:08 Glucose (Glucose 40% Gel 15 Gm Tube) 15 - 30 gm PO UD PRN; Protocol PRN Reason: Hypoglycemia Protocol Stop: 04/12/25 15:08 Glucose (Glucose 10 Tab/Tube) 4 - 8 tab PO UD PRN; Protocol PRN Reason: Hypoglycemia Protocol Stop: 04/12/25 15:08 Bumetanide 1 mg/ Syringe 4 mls @ 4 mls/min IV TID@0900,1300,1800 [facility] Stop: 04/19/25 08:59 Last Admin: 03/20/25 08:30 Dose: 4 mls/min Insulin Aspart (Insulin Aspart Per Unit Charge) 0 units SC ACHS [facility] Stop: 04/12/25 16:29 Last Admin: 03/20/25 08:39 Dose: 3 units Lidocaine (Lidocaine 5% 1 Patch) 1 patch TD QAM [facility] Stop: 04/13/25 08:59 Last Admin: 03/20/25 08:27 Dose: 1 patch Magnesium Hydroxide (Magnesium Hydroxide Susp 30 Ml Udc) 30 ml PO Q12H PRN PRN Reason: Constipation Stop: 04/12/25 18:36 Last Admin: 03/17/25 09:30 Dose: 30 ml Metoclopramide HCl (Metoclopramide Hcl 5 Mg Tablet) 5 mg PO ACHS [facility] Stop: 04/15/25 16:29 Last Admin: 03/20/25 08:30 Dose: 5 mg Miscellaneous (Carbohydrates For Hypoglycemia ) 15 - 30 gm PO UD PRN PRN Reason: Hypoglycemia Protocol Stop: 04/12/25 15:08 Miscellaneous (Remove Lidoderm Patch) 1 each N/A DAILY@2100 [facility] Stop: 04/13/25 00:00 Last Admin: 03/19/25 20:07 Dose: 1 each Miscellaneous Information (Pharmacy Glycemic Mgmt Consult) 1 each N/A UD PRN PRN Reason: Consult Stop: 04/12/25 15:08 Multivitamins (Multivitamin Tab) 1 tab PO QAM [facility] Stop: 04/13/25 08:59 Last Admin: 03/20/25 08:31 Dose: 1 tab Ondansetron HCl (Ondansetron Inj 2 Mg/Ml 2 Ml Vial) 4 mg IV Q6H PRN PRN Reason: Nausea Stop: 04/12/25 18:36 Last Admin: 03/17/25 04:32 Dose: 4 mg Oxycodone HCl (Oxycodone Hcl Ir 5 Mg Tab (Immediate Release)) 5 mg PO Q4H PRN PRN Reason: Mod-Sev Pain (Scale 4-10) Stop: 03/27/25 16:49 Last Admin: 03/16/25 21:05 Dose: 5 mg Polyethylene Glycol (Polyethylene (Miralax) 17 Gm Pack) 17 gm PO DAILY [facility] Stop: 04/17/25 09:14 Last Admin: 03/20/25 08:26 Dose: Not Given Vitamin D (Cholecalciferol 25 Mcg (1000 Units) Tab) 50 mcg PO QAM [facility] Stop: 04/13/25 08:59 Last Admin: 03/20/25 08:32 Dose: 50 mcg
--- NOTE | 2025-03-20 10:08 | Nephrology Progress Note ---
Date of Service March 20, 2025 Assessment & Plan (1) MAGAN (acute kidney injury): Plan: history of MAGAN-D post CABG in December but had recovery enough to d/c w/o dialysis. prior to CABG had creat of 0.97. d/c on torsemide 80 mg daily, creatinine 4.6 on 01/21/25 from [facility] [place] Creat was stable as outpt at 4.4 on 03/01/25. Admission creatinine on March 13 was 4.5 but given episode of Syncope, lowish BP will assume she had pre renal cause with volume depletion. She was slowly downtrending this admission to mame value 3.4 on March 17 off of diuretics. Increased 03/18 likely due to resuming Lasix one-time dose March 17 due to hypoxic episode/chest pain. moderate BL pleural effusions on CT chest -Continue to hold outpatient torsemide No uremic Symptoms. NO need of Dialysis though she is close and may yet need this admission >>ramped up diuretics 03/19 to bumex 1 mg three daily doses adn further today to 1.5 mg 3X daily >>started zaroxolyn 5 mg daily >>pt very debilitated and too tired to do PT yesterday; therefore unreliable/unlikely to do daily standing weights but will try w/ PT when she has brace on anyway >> needs STRICT I/O >>ordered daily STANDING weight as tolerated and w/ care for brace >cont 1.5L FR >>added K 10 mEq daily -Recheck BMP in AM -recommend incentive spirometry >> Dr Reyes aware/will arrange Avoid nephrotoxic agents if possible. No further workup needed for RF but concern that if we cannot diurese her adequately she may need dialysis Needs to prepare for dialysis as OP irregardless of outcome of this admission now that she's been 2+ mos w/ eGFR low teens or worse; cautiously hopeful won't be needed this admission Care coordinated w/ Dr Marie via TText re diuretic dosing, volume status, anemia, d/c dispo, through the morning; we are in agreement. (2) Acute on chronic anemia: Plan: She had Anemia--recent CABG/Severe MAGAN so some anemia is expected. March 14 TSAT is 13% On March 17 had venofer 300 mg and also procrit [id number]; had another 300 mg venofer on 03/19 >will give another 300 mg venofer as no active infection Daily hemoglobin and given recent CABG would have transfusion threshold of 8.0 mg/dL; hemoglobin today much better 8.7 (3) Compression fracture of L1 lumbar vertebra: Plan: Per primary service Admission and Anticipated Discharge Date Admission Date: March 13, 2025 Subjective no interval events clnically. poor sleep d/t roomate and too hard to get up much w/ PT today though did one step or two. no sob, no n/v; some mild R post knee pain w/o h/o trauma Review of Systems 2 Review of Systems: All systems reviewed & are unremarkable except as noted in Subjective Physical Exam 2 Constitutional: well developed (lying in bed on RA), well nourished, + obese, + frail appearing and cooperative Eyes: EOM intact bilaterally ENMT: Mouth: + dry oral mucous membranes (slight) Neck: no nuchal rigidity Respiratory: able to speak in complete sentences and + tachypneic; no cough Auscultation: + diminished lung sounds (lung exam limited by back brace) Cardiovascular: Rate/Rhythm: regular rate and regular rhythm Extremities: n o edema Gastrointestinal (Abdomen): Inspection/Auscultation: normal bowel sounds P ercussion/Palpation: abdomen soft; abdomen nontender Musculoskeletal: Extremities: strength 5/5 throughout Skin: no rashes, warm and dry Results & Data Vital Signs (Past 12 Hours) Vital Signs Temp Pulse Resp BP BP Pulse Ox O2 Del Method 03/20/25 07:39 36.8 C 88 20 123/68 90 Room Air 03/19/25 22:47 36.7 C 80 16 123/80 94 Room Air Laboratory Results 03/20/25 06:38 03/20/25 06:38
[2025-03-20] MEDS: POTASSIUM CHLORIDE 10 MEQ TABCR PO SCH (11:04)
[2025-03-20] MEDS: IRON SUCROSE 300 MG in SODIUM CHLORIDE 0.9% 250 ML IV ONE (11:05)
[2025-03-20] MEDS: BUMETANIDE 1.5 MG in SYRINGE 0 ML IV SCH (13:22)
[2025-03-20] MEDS: SODIUM CHLORIDE 0.65% NA SOLN 45 ML (OCEAN) ONE (13:27)
[2025-03-20] MEDS: TROLAMINE SALICYLATE 10% CRM 255 APPLN/85 GM TUBE EXT PRN (20:40)
[2025-03-21 07:56] LABS: Anion Gap 11.0 (3-11); Blood Urea Nitrogen 68.0 mg/dl (6-23); Calcium 9.5 mg/dl (8.6-10.3); Carbon Dioxide 29.0 mmol/L (21-32); Chloride 97.0 mmol/L (98-107); Creatinine Clr Calc Pharmacy 10.5 ml/min; Glucose 111.0 mg/dl (70-99(Fasting)); Magnesium 2.0 mg/dl (1.7-2.4); Potassium 4.0 mmol/L (3.5-5.1); Sodium 137.0 mmol/L (136-145)
--- NOTE | 2025-03-21 10:17 | Nephrology Progress Note ---
Date of Service March 21, 2025 Assessment & Plan (1) MAGAN (acute kidney injury): Plan: history of MAGAN-D post CABG in December but had recovery enough to d/c w/o dialysis. prior to CABG had creat of 0.97. d/c on torsemide 80 mg daily, creatinine 4.6 on 01/21/25 from [facility] [place] Creat was stable as outpt at 4.4 on 03/01/25. Admission creatinine on March 13 was 4.5 but given episode of Syncope, lowish BP will assume she had pre renal cause with volume depletion. She was slowly downtrending this admission to mame value 3.4 on March 17 off of diuretics. now increasing as we resume diuretics. moderate BL pleural effusions on CT chest -Continue to hold outpatient torsemide she is volume overloaded and unclear how well diuresing (I/O incomplete but did do standing weight ); concern that pleural effusions if not decreasing could lead to PNA. NO need yet for Dialysis though she is quite close and may yet need this admission, more likely in the coming weeks to 1 to 2 months >>ramped up diuretics 03/19 to bumex 1 mg three daily doses and further 03/20 to 1.5 mg 3X daily >>started zaroxolyn 5 mg daily 03/20 >>pt very debilitated and too tired to do PT yesterday; therefore unreliable/unlikely to do daily standing weights but will try w/ PT when she has brace on anyway; appreciate nursing efforts to get standing wt >> needs STRICT I/O > reinforced w/ team >>needs daily STANDING weight as tolerated and w/ care for brace >cont 1.5L FR -check orthostatics today order in >>continue K 10 mEq daily -Recheck BMP in AM - Continue incentive spirometry so I will tell them next Tuesday. Need to know what time so I can put it in the discharge recommendations from the hospital and said our care has it on the roster Avoid nephrotoxic agents if possible. No further workup needed for RF but concern that if we cannot diurese her adequately she may need dialysis Needs to prepare for dialysis as OP irregardless of outcome of this admission now that she's been 2+ mos w/ eGFR low teens or worse; cautiously hopeful won't be needed this admission. Will work today on ensuring we can have very close OP follow up for dialysis education and preparation otherwise has to stay here while we start but hoping we can d/c w/ close f/u >> clinically, goal would be to get her through rehab and if she goes home start PD, if stays as facility resident would have to do HD which I believe in her case will be less well tolerated. All of that said, pt needs education about modalities and about how things would work for her situation and OP teams need to evaluate her (home visit) for PD candidacy. will also need vascular surgery eval as OP for PD cath placement and AVF creation; even if she does PD, would get AVF anyway Care coordinated w/ Dr Galvin via TText re diuretic dosing, volume status, anemia, d/c dispo; we are in agreement. (2) Acute on chronic anemia: Plan: She had Anemia--recent CABG/Severe MAGAN so some anemia is expected. March 14 TSAT is 13% On March 17 had venofer 300 mg and also procrit [id number]; had another 300 mg venofer on 03/19 and 03/20 >will give another / final 300 mg venofer as no active infection for 1.2 gm total load >>favor another high dose procrit tomorrow Daily hemoglobin and given recent CABG would have transfusion threshold of 8.0 mg/dL; hemoglobin today much better 8.7 (3) Compression fracture of L1 lumbar vertebra: Plan: Per primary service Admission and Anticipated Discharge Date Admission Date: March 13, 2025 Subjective Slept better and eager to do PT today. No shortness of breath. Using incentive spirometer. No edema. Review of Systems 2 Review of Systems: All systems reviewed & are unremarkable except as noted in Subjective Physical Exam 2 Constitutional: well developed (Sitting up in chair on RA), well nourished, + obese, + frail appearing and cooperative Eyes: EOM intact bilaterally ENMT: Mouth: + dry oral mucous membranes (slight) Neck: no nuchal rigidity Respiratory: + labored breathing (slight), able to sp eak in complete sentences and + tachypneic; no cough Auscultation: + diminished lung sounds (lung exam limited by back brace) Cardiovascular: Rate/Rhythm: regular rate and regular rhythm Extremities: n o edema Gastrointestinal (Abdomen): Inspection/Auscultation: normal bowel sounds P ercussion/Palpation: abdomen soft; abdomen nontender Musculoskeletal: Extremities: strength 5/5 throughout Skin: no rashes, warm and dry Results & Data Vital Signs (Past 12 Hours) Vital Signs Temp Pulse Resp BP Pulse Ox O2 Del Method 03/21/25 07:40 37.1 C 87 20 115/66 93 Room Air 03/21/25 00:46 37.0 C 89 20 115/58 L 90 Room Air Laboratory Results 03/20/25 06:38 03/21/25 06:42
[2025-03-21] MEDS: IRON SUCROSE 300 MG in SODIUM CHLORIDE 0.9% 250 ML IV ONE (11:24)
--- NOTE | 2025-03-21 11:49 | Hospitalist Progress Note ---
Date of Service March 21, 2025 Assessment & Plan (1) Syncope and collapse: Plan: Suspect orthostasis Complicated by acute renal failure with dehydration Condition is improved the patient remains free from any symptoms at rest Has been accepted to [facility] likely discharge tomorrow to continue rehab Remains medically stable and does not have any significant symptoms except weakness (2) Cardiac volume overload: Plan: Evidence of fluid overload on CT scan of the chest Has been getting intravenous diuretics Will maintain intake output chart and monitor electrolytes Cumulative fluid balance remains +2963 but the patient remains free from any symptoms Has been getting intravenous diuretics with oral metolazone to take out more fluid from the system Not yet ready to be discharged and likely to be discharged on Tuesday provided renal function remains stable and does not require dialysis (3) Acute on chronic anemia: Plan: Suspect due to renal dysfunction No evidence of acute blood loss and hemoglobin noted to be low at 7.9 --> 8.7 monitor H&H. Received total of 1.2 g IV iron while in hospital. (4) Compression fracture of L1 lumbar vertebra: Plan: Suspect osteoporotic in the setting of a fall Strongly advised to use the brace while ambulating and take pain medications as needed Still has minimal pain with movement. Vitamin D level WNL. (5) Acute retention of urine: (6) Electrolyte abnormality: (7) Acute kidney injury superimposed on stage 3a chronic kidney disease: Plan: Appreciate nephrology input and recommendation Has been getting intravenous diuretics for fluid overload Will monitor electrolytes and likely discharge tomorrow With nephrology clearance. Creatinine Slightly up trended today. (8) Elevated troponin: Plan: Due to renal dysfunction (9) CAD, multiple vessel: (10) History of coronary artery bypass graft x 3: (11) Diabetes mellitus type 2, insulin dependent: Plan: Blood sugar remains stable Continue current diabetic management Admission and Anticipated Discharge Date Admission Date: March 13, 2025 Subjective Patient was seen and examined at bedside. Patient was sitting up in chair, on room air, NAD, reports pain under control, denies no new acute events/issues since yesterday. Patient reports being able to eat okay and pain under control. Physical Exam Physical Exam: Sitting up in chair, without any acute distress Constitutional: well developed, well nourished and + obese Eyes: PERRL, conjunctivae normal, anicteric sclerae ENMT: external ear and nose normal, oropharynx normal Neck: trachea midline, no thyromegaly Respiratory: no respiratory distress Auscultation: + diminished lung sounds (Minimal crackles at the bases) Cardiovascular: Rate/Rhythm: regular rate and regular rhythm; not tachycardic Heart Sounds: normal S1 and normal S2; no murmur Extremities: no edema Gastrointestinal (Abdomen): Inspection/Auscultation: normal bowel sounds; abdomen not distended Percussion/Palpation: abdomen soft; abdomen nontender Neurologic: normal touch/pain/proprioception and moves all extremities; no focal motor deficits Psychiatric: A+Ox3, euthymic affect Lymphatic: no cervical or axillary lymphadenopathy Results & Data Results & Data Vital Signs (Past 12 Hours) Vital Signs Temp Pulse Resp BP Pulse Ox O2 Del Method 03/21/25 07:40 37.1 C 87 20 115/66 93 Room Air 03/21/25 00:46 37.0 C 89 20 115/58 L 90 Room Air
--- NOTE | 2025-03-21 12:50 | Pharmacy Report ---
Pharmacy Glycemic Short Note 2 - Date of Service March 21, 2025 - Glycemic Short BSG Results (Last 24 hours): 03/20/25 03/20/25 03/21/25 16:53 20:10 06:42 Glucose 111 H POC Glucose 128 H 166 H 03/21/25 03/21/25 07:58 11:59 Glucose POC Glucose 122 H 153 H OUTPATIENT ANTIDIABETIC REGIMEN: * Lantus 15 units SC HS * Novolog SSI * A1c = 12.8% (12/21/24) ASSESSMENT: 03/21: * Zena only required 8 units of insulin yesterday, all were bolus. BSGs were [phone]/dL. The carb ratio was loosened to prevent hypoglycemia. * Fasting BSG was in the goal range this morning. No additional changes will be made. 03/18: * Zena's blood sugars have been well controlled over the last 48 hours, ranging 97-145 mg/dL. Has only required 3-4 units of bolus insulin per day. * Fasting BSG this AM was 127 mg/dL. Continue without basal insulin. * No change in stressors. Not eating much. No change necessary to Novolog. 03/15: * Patient received total of 18 units of insulin yesterday, of which 10 units were basal insulin * Fasting BSG 95 mg/dL - continued with Lantus 5 units this AM * Discussed with RN, patient not eating and not feeling well this AM/nausea&vomiting noted * Will d/c basal insulin due to no PO intake today. Patient refused lunch blood sugar check - RN to discuss with patient the importance of monitoring blood sugar. Loosened CR for later today 03/14: * Zena is a 74 yo T2DM admitted with acute onset severe low back pain after sustaining a fall. Patient found to have lumbar compression fracture. Ortho consulted and recommended conservative management. * Patient has been continued on home regimen of Lantus + Novolog. Lantus dose has been reduced to 5 units BID, which appears to be reasonable thus far. Fasting BSG of 100 mg/dL. * Novolog ordered based on weight/stress 2. Limited post prandial data at this time. Will continue for now. PLAN FOR INPATIENT GLYCEMIC CONTROL: * Basal insulin * None * Bolus insulin * NovoLog per scale ACHS or Q6hrs while NPO * Goal Range: Low 120 mg/dL - High 160 mg/dL * Correction Factor: 35 mg/dL/unit * Nutritional / Prandial insulin per carb ratio of 1 unit per 25 grams CHO consumed
[2025-03-22 08:00] VITALS: PULSE 81; RESP 18; TEMP 98.1; O2SAT 96
[2025-03-22 08:16] LABS: Hematocrit (blood only) 28.3 % (37.0-47.0); Hemoglobin 9.2 g/dl (12.0-16.0); Mean Corpuscular Hemoglobin 31.7 pg (25.0-34.0); Mean Corpuscular Volume 97.6 fL (80.0-100.0); Platelet Count 410 K/uL (130-400); RDW Standard Deviation 52.5 fL (36.4-46.3); Red Blood Count 2.90 M/uL (4.20-5.40); White Blood Count 6.72 K/ul (4.8-10.8)
[2025-03-22 08:31] LABS: Anion Gap 12.0 (3-11); Blood Urea Nitrogen 70.0 mg/dl (6-23); Calcium 9.6 mg/dl (8.6-10.3); Carbon Dioxide 30.0 mmol/L (21-32); Chloride 95.0 mmol/L (98-107); Creatinine Clr Calc Pharmacy 10.2 ml/min; Glucose 123.0 mg/dl (70-99(Fasting)); Potassium 4.1 mmol/L (3.5-5.1); Sodium 137.0 mmol/L (136-145)
--- NOTE | 2025-03-22 12:58 | Pharmacy Report ---
Pharmacy Glycemic Short Note 2 - Date of Service March 22, 2025 - Glycemic Short BSG Results (Last 24 hours): 03/21/25 03/21/25 03/22/25 16:56 20:23 07:53 Glucose 123 H POC Glucose 122 H 142 H 03/22/25 03/22/25 08:33 12:11 Glucose POC Glucose 131 H 154 H OUTPATIENT ANTIDIABETIC REGIMEN: * Lantus 15 units SC HS * Novolog SSI * A1c = 12.8% (12/21/24) ASSESSMENT: 03/22: * Tramaine blood sugars were well controlled the last 24 hours. All BSG readings have been in the goal range. * Fasting BSG was 131mg/dL this morning. No changes will be made to here insulin regimen at this time. 03/21: * Zena only required 8 units of insulin yesterday, all were bolus. BSGs were [phone]/dL. The carb ratio was loosened to prevent hypoglycemia. * Fasting BSG was in the goal range this morning. No additional changes will be made. 03/18: * Deisy blood sugars have been well controlled over the last 48 hours, ranging 97-145 mg/dL. Has only required 3-4 units of bolus insulin per day. * Fasting BSG this AM was 127 mg/dL. Continue without basal insulin. * No change in stressors. Not eating much. No change necessary to Novolog. 03/15: * Patient received total of 18 units of insulin yesterday, of which 10 units were basal insulin * Fasting BSG 95 mg/dL - continued with Lantus 5 units this AM * Discussed with RN, patient not eating and not feeling well this AM/nausea& vomiting noted * Will d/c basal insulin due to no PO intake today. Patient refused lunch blood sugar check - RN to discuss with patient the importance of monitoring blood sugar. Loosened CR for later today 03/14: * Zena is a 74 yo T2DM admitted with acute onset severe low back pain after sustaining a fall. Patient found to have lumbar compression fracture. Ortho consulted and recommended conservative management. * Patient has been continued on home regimen of Lantus + Novolog. Lantus dose has been reduced to 5 units BID, which appears to be reasonable thus far. Fasting BSG of 100 mg/dL. * Novolog ordered based on weight/stress 2. Limited post prandial data at this time. Will continue for now. PLAN FOR INPATIENT GLYCEMIC CONTROL: * Basal insulin * None * Bolus insulin * NovoLog per scale ACHS or Q6hrs while NPO * Goal Range: Low 120 mg/dL - High 160 mg/dL * Correction Factor: 35 mg/dL/unit * Nutritional / Prandial insulin per carb ratio of 1 unit per 25 grams CHO consumed
--- NOTE | 2025-03-22 13:16 | Hospitalist Progress Note ---
Date of Service March 22, 2025 Assessment & Plan (1) Syncope and collapse: Plan: Suspect orthostasis Complicated by acute renal failure with dehydration Condition is improved the patient remains free from any symptoms at rest Has been accepted to [facility] likely discharge tomorrow to continue rehab Remains medically stable and does not have any significant symptoms except weakness She has been stable without any significant symptoms and her vitals are normal She will be discharged to [facility] this afternoon (2) Cardiac volume overload: Plan: Evidence of fluid overload on CT scan of the chest Has been getting intravenous diuretics Will maintain intake output chart and monitor electrolytes Cumulative fluid balance remains +[id number] but the patient remains free from any symptoms Has been getting intravenous diuretics with oral metolazone to take out more fluid from the system Not yet ready to be discharged and likely to be discharged on Tuesday provided renal function remains stable and does not require dialysis Will discharge her on oral torsemide 80 mg 2 times daily and will have basic metabolic panel, phosphate and albumin ,transferrin sat checked prior to appointment with lime supervisor She has also an appointment on 29 March at 1 PM at [facility] for education about dialysis She will need to have an appointment with [facility] for possible vascular access (3) Acute on chronic anemia: Plan: Suspect due to renal dysfunction No evidence of acute blood loss and hemoglobin noted to be low at 7.9 --> 8.7 monitor H&H. Received total of 1.2 g IV iron while in hospital. Hemoglobin remains stable (4) Compression fracture of L1 lumbar vertebra: Plan: Suspect osteoporotic in the setting of a fall Strongly advised to use the brace while ambulating and take pain medications as needed Still has minimal pain with movement. Vitamin D level WNL. (5) Acute retention of urine: (6) Electrolyte abnormality: (7) Acute kidney injury superimposed on stage 3a chronic kidney disease: Plan: Appreciate nephrology input and recommendation Has been getting intravenous diuretics for fluid overload Will monitor electrolytes and likely discharge tomorrow With nephrology clearance. Creatinine Slightly up trended today. (8) Elevated troponin: Plan: Due to renal dysfunction (9) CAD, multiple vessel: (10) History of coronary artery bypass graft x 3: (11) Diabetes mellitus type 2, insulin dependent: Plan: Blood sugar remains stable Continue current diabetic management Admission and Anticipated Discharge Date Admission Date: March 13, 2025 Subjective 03/19/2025 Patient was seen and examined in medical telemetry unit He has been complaining of more back pain today Does not have any shortness of breath, palpitation or chest pain Denies any other significant symptoms 03/20/2025 The patient was seen and examined in medical telemetry unit She did not have a good sleep last night and feels tired this morning On asking questions she mentioned to have some pain in the chest last night very nonspecific though Denies any other significant symptoms 03/22/2025 The patient was seen and examined in medical telemetry unit She has been weak and lethargic but does not have any acute distress Noted to have some nausea without vomiting this morning Denies any other significant symptoms Review of Systems Review of Systems: All systems reviewed and unremarkable except as noted below Physical Exam Physical Exam: Lying in bed without any acute distress Constitutional: well developed, well nourished, + ill appearing and + obese Eyes: PERRL, conjunctivae normal, anicteric sclerae ENMT: external ear and nose normal, oropharynx normal Neck: trachea midline, no thyromegaly Respiratory: no respiratory distress Auscultation: + diminished lung sounds (Minimal crackles at the bases) Cardiovascular: Rate/Rhythm: regular rate and regular rhythm; not tachycardic Heart Sounds: normal S1 and normal S2; no murmur Extremities: no edema Gastrointestinal (Abdomen): Inspection/Auscultation: normal bowel sounds; abdomen not distended Percussion/Palpation: abdomen soft; abdomen nontender Neurologic: normal touch/pain/proprioception and moves all extremities; no focal motor deficits Psychiatric: A+Ox3, euthymic affect Lymphatic: no cervical or axillary lymphadenopathy Results & Data Results & Data Vital Signs (Past 12 Hours) Vital Signs Temp Pulse Resp BP Pulse Ox O2 Del Method 03/22/25 08:00 36.7 C 81 18 129/72 96 Room Air Laboratory Results Short CBC 03/22/25 Range/Units 07:53 WBC 6.72 (4.8-10.8) K/ul Hgb 9.2 L (12.0-16.0) g/dl Hct 28.3 L (37.0-47.0) % Plt Count 410 H (130-400) K/uL BMP 03/22/25 07:53 Sodium 137 Potassium 4.1 Chloride 95 L Carbon Dioxide 30 BUN 70 H Creatinine 4.28 H Glucose 123 H Calcium 9.6 Medications Administered Current Inpatient Medications Acetaminophen (Acetaminophen 500 Mg Tab) 1,000 mg PO TID [facility] Stop: 04/13/25 08:59 Last Admin: 03/22/25 08:11 Dose: 1,000 mg Aspirin (Aspirin 81 Mg Ectab) [facility] [facility]: 04/13/25 08:59 Last Admin: 03/22/25 08:14 Dose: 81 mg Clopidogrel Bisulfate (Clopidogrel Bisulfate 75 Mg Tab) [facility] [place] Stop: 04/13/25 08:59 Last Admin: 03/22/25 08:19 Dose: 75 mg Dextrose (Dextrose 50% 50 Ml Syringe) 25 - 50 ml IV UD PRN; Protocol PRN Reason: Hypoglycemia Protocol Stop: 04/12/25 15:08 Docusate Sodium (Docusate Sodium 100 Mg Cap) 100 mg PO BID [facility] Stop: 04/17/25 09:14 Last Admin: 03/22/25 08:19 Dose: 100 mg Doxycycline Hyclate (Doxycycline Hyclate 100 Mg Cap) 100 mg PO BID [facility] Stop: 03/23/25 14:59 Last Admin: 03/22/25 08:19 Dose: 100 mg Escitalopram Oxalate (Escitalopram Oxalate 10 Mg Tab) [address] [facility] Stop: 04/13/25 08:59 Last Admin: 03/22/25 08:19 Dose: 10 mg Famotidine (Famotidine 20 Mg Tab) [address] [facility] Stop: 04/13/25 08:59 Last Admin: 03/22/25 08:20 Dose: 20 mg Glucagon (Glucagon For Inj 1 Mg Vial) 1 mg SQ UD PRN; Protocol PRN Reason: Hypoglycemia Protocol Stop: 04/12/25 15:08 Glucose (Glucose 40% Gel 15 Gm Tube) 15 - 30 gm PO UD PRN; Protocol PRN Reason: Hypoglycemia Protocol Stop: 04/12/25 15:08 Glucose (Glucose 10 Tab/Tube) 4 - 8 tab PO UD PRN; Protocol PRN Reason: Hypoglycemia Protocol Stop: 04/12/25 15:08 Bumetanide 1.5 mg/ Syringe 6 mls @ 4 mls/min IV TID@0900,1300,1800 [facility] Stop: 04/19/25 12:59 Last Admin: 03/22/25 12:11 Dose: 4 mls/min Insulin Aspart (Insulin Aspart Per Unit Charge) 0 units SC ACHS [facility] Stop: 04/12/25 16:29 Last Admin: 03/22/25 12:52 Dose: 2 units Lidocaine (Lidocaine 5% 1 Patch) 1 patch TD QAM [facility] Stop: 04/13/25 08:59 Last Admin: 03/22/25 08:20 Dose: 1 patch Magnesium Hydroxide (Magnesium Hydroxide Susp 30 Ml Udc) 30 ml PO Q12H PRN PRN Reason: Constipation Stop: 04/12/25 18:36 Last Admin: 03/17/25 09:30 Dose: 30 ml Metoclopramide HCl (Metoclopramide Hcl 5 Mg Tablet) 5 mg PO ACHS [facility] Stop: 04/15/25 16:29 Last Admin: 03/22/25 12:10 Dose: 5 mg Metolazone (Metolazone 5 Mg Tablet) 5 mg PO QAM [facility] Stop: 04/19/25 10:29 Last Admin: 03/22/25 08:20 Dose: 5 mg Miscellaneous (Carbohydrates For Hypoglycemia ) 15 - 30 gm PO UD PRN PRN Reason: Hypoglycemia Protocol Stop: 04/12/25 15:08 Miscellaneous (Remove Lidoderm Patch) 1 each N/A DAILY@2100 [facility] Stop: 04/13/25 00:00 Last Admin: 03/21/25 20:37 Dose: 1 each Miscellaneous Information (Pharmacy Glycemic Mgmt Consult) 1 each N/A UD PRN PRN Reason: Consult Stop: 04/12/25 15:08 Multivitamins (Multivitamin Tab) 1 [facility] [place] Stop: 04/13/25 08:59 Last Admin: 03/22/25 08:21 Dose: 1 tab Ondansetron HCl (Ondansetron Inj 2 Mg/Ml 2 Ml Vial) 4 mg IV Q6H PRN PRN Reason: Nausea Stop: 04/12/25 18:36 Last Admin: 03/17/25 04:32 Dose: 4 mg Oxycodone HCl (Oxycodone Hcl Ir 5 Mg Tab (Immediate Release)) 5 mg PO Q4H PRN PRN Reason: Mod-Sev Pain (Scale 4-10) Stop: 03/27/25 16:49 Last Admin: 03/16/25 21:05 Dose: 5 mg Polyethylene Glycol (Polyethylene (Miralax) 17 Gm Pack) 17 gm PO DAILY [facility] Stop: 04/17/25 09:14 Last Admin: 03/22/25 08:33 Dose: Not Given Potassium Chloride (Potassium Chloride 10 Meq Tabcr) 10 meq PO DAILY [facility] Stop: 04/19/25 10:14 Last Admin: 03/22/25 08:21 Dose: 10 meq Trolamine Salicylate (Trolamine Salicylate 10% Crm 255 Appln/85 Gm Tube) 1 appln EXT BID PRN PRN Reason: Pain Stop: 04/19/25 19:53 Last Admin: 03/21/25 20:29 Dose: 1 appln Vitamin D (Cholecalciferol 25 Mcg (1000 Units) Tab) 50 mcg PO QAM [facility] Stop: 04/13/25 08:59 Last Admin: 03/22/25 08:14 Dose: 50 mcg
--- NOTE | 2025-03-22 14:01 | Nephrology Progress Note ---
Date of Service March 22, 2025 Assessment & Plan (1) MAGAN (acute kidney injury): Plan: history of MAGAN-D post CABG in December but had recovery enough to d/c w/o dialysis. prior to CABG had creat of 0.97. d/c on torsemide 80 mg daily, creatinine 4.6 on 01/21/25 from [facility]. Creat was stable as outpt at 4.4 on 03/01/25. Admission creatinine on March 13 was 4.5 but given episode of Syncope, lowish BP will assume she had pre renal cause with volume depletion. She was slowly downtrending this admission to mame value 3.4 on March 17 off of diuretics. now increasing as we resume diuretics. moderate BL pleural effusions on CT chest she is volume overloaded and unclear how well diuresing (I/O incomplete but did do standing weight ); concern that pleural effusions if not decreasing could lead to PNA. NO need yet for Dialysis though she is quite close and may yet need this admission, more likely in the coming weeks to 1 to 2 months >> ramped up diuretics 03/19 to bumex 1 mg three daily doses and further 03/20 to 1.5 mg 3X daily >> started zaroxolyn 5 mg daily 03/20 >> appreciate nursing efforts to get standing wt >> needs STRICT I/O >>needs daily STANDING weight as tolerated and w/ care for brace >cont 1.5L FR -check orthostatics today order in >>continue K 10 mEq daily -Recheck BMP in AM - Continue incentive spirometry so I will tell them next Tuesday. Need to know what time so I can put it in the discharge recommendations from the hospital and said our care has it on the roster Avoid nephrotoxic agents if possible. No further workup needed for RF but concern that if we cannot diurese her adequately she may need dialysis Needs to prepare for dialysis as OP irregardless of outcome of this admission now that she's been 2+ mos w/ eGFR low teens or worse; fortunately won't be needed this admission. NEPHRO D/C RECS Dx: -Stage 3 MAGAN non oliguric -s/p recent CABG -BL pleural effusions -lumbar fracture RX: - Torsemide 80 mg twice daily No change to other medications from admission, specifically no need to discharge on potassium supplements or metolazone OTHER PT CARE: -1.5 L fluid limit and less than 2 g daily sodium diet Basic metabolic panel, phosphorus, albumin, hemoglobin, transferrin saturation, urinalysis microscopy, ACR to be ordered by her facility for 03/26/25 F/U APPTS - Keep already scheduled appointment with Dr. Hendricks April 02 If possible reschedule March 29 dialysis modality education to the following week ([facility] land planner working on this) Needs appointment to establish care with Dr. Han in 2 to 3 weeks/after dialysis modality education to be evaluated for AV fistula creation and possible PD catheter placement Care coordinated w/ Dr Galvin via [employer] re anemia mgt, meds, d/c dispo; we are in agreement. (2) Acute on chronic anemia: Plan: She had Anemia--recent CABG/Severe MAGAN so some anemia is expected. March 14 TSAT is 13% On March 17 had venofer 300 mg and also procrit [id number]; had another 300 mg venofer on 03/19 and 03/20 and 03/21 > venofer s/p 1.2 gm total load >>epo 20K units SQ today given Daily hemoglobin and given recent CABG would have transfusion threshold of 8.0 mg/dL; hemoglobin today much better 8.7 (3) Compression fracture of L1 lumbar vertebra: Plan: Per primary service Admission and Anticipated Discharge Date Admission Date: March 13, 2025 Subjective pain back 6-7/10 right now. some N today. no sob. feeling overwhelmed about OP f/u re dialysis planning/ CKD-ESRD Review of Systems 2 Review of Systems: All systems reviewed & are unremarkable except as noted in Subjective Physical Exam 2 Constitutional: well developed (lying in bed on RA), well nourished, + obese, + frail appearing and cooperative Eyes: EOM intact bilaterally ENMT: Mouth: + dry oral mucous membranes (slight) Neck: no nuchal rigidity Respiratory: + labored breathing (slight), able to sp eak in complete sentences and + tachypneic; no cough Auscultation: + diminished lung sounds (lung exam limited by position in bed, no brace) Cardiovascular: Rate/Rhythm: regular rate and regular rhythm Extremities: n o edema Gastrointestinal (Abdomen): Inspection/Auscultation: normal bowel sounds P ercussion/Palpation: abdomen soft; abdomen nontender Musculoskeletal: Extremities: strength 5/5 throughout Skin: no rashes, warm and dry Results & Data Vital Signs (Past 12 Hours) Vital Signs Temp Pulse Resp BP Pulse Ox O2 Del Method 03/22/25 08:00 36.7 C 81 18 129/72 96 Room Air Laboratory Results 03/22/25 07:53 03/22/25 07:53
[2025-03-22] MEDS: EPOETIN ALFA 20,000 UNITS/ML VIAL SQ STA (15:16)
[2025-03-22 15:27] VITALS: BP 126/66
--- NOTE | 2025-03-22 17:43 | Discharge Summary ---
Date of Service March 22, 2025 Admission HPI Per Admitting Provider Pt is a 74y/o F with PMHx significant for NSTEMI in November 2024, severe multivessel CAD s/p CABG x 3 [RODNEY to LAD and SVG to OM, PDA] on 12/25/2024, uncontrolled DMII [Hgb A1c 12.9% 2mo ago], HLD with history of statin intolerance, CKD stage IIIa, constipation and history of medication noncompliance who presented to the ED via EMS after sustaining a syncopal event at home. History obtained from the patient, discussion with ED provider and extensive chart review. Recent confinement from 12/21/24-01/08/[address] [facility] for NSTEMI after being transferred from this facility for CABG evaluation since she was found to have severe multivessel CAD on cardiac catheterization performed by Dr. Renee on 12/21/24. S/p CABG x 3 [RODNEY to LAD and SVG to OM, PDA] on 12/25/[address]ame at [facility]. Postop course complicated by development of MAGAN and subsequent ARF secondary to ATN requiring CRRT x 1 session, acute anemia requiring PRBC transfusion and new-onset atrial fibrillation which resolved with conversion back to NSR s/p IV amiodarone. Renal US was normal on 12/29/24. No renal biopsy was completed. Patient was discharged home on 80mg po torsemide daily due to fluid retention. TTE, 12/25/24: EF 56%, mild improvement in RWM in anteroseptal region, mild MR, mild TR and mild AVR. Patient was discharged to [facility] for rehab services following her admission at [facility]. She was discharged home from [facility] on 02/21/25. Patient seen by Dr. Hendricks, [facility] nephrology, as an OP on 03/01/25. Torsemide dose decreased to 40mg po daily due to orthostasis. Cr 4.6 on 01/21/25. Cr 4.4 and BUN 72 on 03/01/25. Patient currently living alone at her apartment with caregiver support in the AM on and in the afternoon on /Th. She has a brother whom lives in [place]. No local family support. Was getting out of bed this morning and waking to the bathroom when her vision suddenly became blurry and "everything went black" before she subsequently fell to the floor. Recalls hitting her head on a nearby object. Also sustained some scrapes to her L forearm but she cannot recall if she landed primarily on her L or R side. She was able to crawl over to a nearby chair but admits to excruciating low back pain after the fall which prohibited her from being able to stand by herself. She waited for her caregiver to come to her house before calling EMS as she was unable to tolerate her low back pain. Admits to routinely checking her BP at home. States her resting BP while sitting after the fall was in the 90s/50s. She did not take any of her home medications this morning. Denies any SOB or chest pain. No recent urinary or bowel habit changes. States her appetite has been fair since being home from rehab. Denies any N/V. Admission Exam Per Admitting Provider Physical Exam: General: Elderly F, NAD, laying down in bed, A&Ox3, pleasant, tearful affect, appears comfortable at rest HEENT: Normocephalic, atraumatic, oropharynx dry Respiratory: Normal respiratory effort, CTAB, saturating in upper 90s on RA Cardiovascular: RRR, normal peripheral pulses, no BLE edema Abdomen/GI: Active bowel sounds, soft, nontender to palpation in all quadrants Extremities/MSK: Limited mobility 2/2 low back pain, extremely TTP across lower back Neurologic: No overt focal deficits, CN's II-XI not formally tested but appear grossly intact bilaterally Principal Diagnosis Syncope and collapse, MAGAN, compression fracture of L1 vertebra Discharge Exam Lying in bed without any acute distress Constitutional well developed, well nourished, + ill appearing and + obese Eyes PERRL, conjunctivae normal, anicteric sclerae ENMT external ear and nose normal, oropharynx normal Neck trachea midline, no thyromegaly Respiratory no respiratory distress Auscultation: + diminished lung sounds (Minimal crackles at the bases) Cardiovascular Rate/Rhythm: regular rate and regular rhythm; not tachycardic Heart Sounds: normal S1 and normal S2; no murmur Extremities: no edema Gastrointestinal (Abdomen) Inspection/Auscultation: normal bowel sounds; abdomen not distended Percussion/Palpation: abdomen soft; abdomen nontender Neurologic normal touch/pain/proprioception and moves all extremities; no focal motor deficits Psychiatric A+Ox3, euthymic affect Lymphatic no cervical or axillary lymphadenopathy Discharge Data Allergies Allergy/AdvReac Type Severity Reaction Status Date / Time prednisone Allergy Intermediate INJECTED--HIVES, Verified 03/13/25 15:13 ORAL--BLOOD SUGARS 300+ Consultations 03/13/25 14:17 ED Decision to Admit Stat 03/13/25 14:53 Consult Nephrology Routine 03/13/25 14:54 Consult Orthopedic Spine Surgery Routine Ordered Studies 03/13/25 12:21 CT cervical spine wo con Stat CT head/brain wo con Stat CT lumbar spine wo con Stat 03/18/25 10:41 CT chest diagnostic wo con Routine Hospital Course (1) Syncope and collapse: Suspect orthostasis Complicated by acute renal failure with dehydration Condition is improved the patient remains free from any symptoms at rest Has been accepted to [facility] likely discharge tomorrow to continue rehab Remains medically stable and does not have any significant symptoms except weakness She has been stable without any significant symptoms and her vitals are normal She will be discharged to [facility] this afternoon (2) Cardiac volume overload: Evidence of fluid overload on CT scan of the chest Has been getting intravenous diuretics Will maintain intake output chart and monitor electrolytes Cumulative fluid balance remains +[id number] but the patient remains free from any symptoms Has been getting intravenous diuretics with oral metolazone to take out more fluid from the system Not yet ready to be discharged and likely to be discharged on Tuesday provided renal function remains stable and does not require dialysis Will discharge her on oral torsemide 80 mg 2 times daily and will have basic metabolic panel, phosphate and albumin ,transferrin sat checked prior to appointment with extractor filler She has also an appointment on 29 March at 1 PM at [facility] for education about dialysis She will need to have an appointment with [facility] for possible vascular access (3) Acute on chronic anemia: Suspect due to renal dysfunction No evidence of acute blood loss and hemoglobin noted to be low at 7.9 --> 8.7 monitor H&H. Received total of 1.2 g IV iron while in hospital. Hemoglobin remains stable (4) Compression fracture of L1 lumbar vertebra: Suspect osteoporotic in the setting of a fall Strongly advised to use the brace while ambulating and take pain medications as needed Still has minimal pain with movement. Vitamin D level WNL. (5) Acute retention of urine: (6) Electrolyte abnormality: (7) Acute kidney injury superimposed on stage 3a chronic kidney disease: Appreciate nephrology input and recommendation Has been getting intravenous diuretics for fluid overload Will monitor electrolytes and likely discharge tomorrow With nephrology clearance. Creatinine Slightly up trended today. (8) Elevated troponin: Due to renal dysfunction (9) CAD, multiple vessel: (10) History of coronary artery bypass graft x 3: (11) Diabetes mellitus type 2, insulin dependent: Blood sugar remains stable Continue current diabetic management Total Time Total Time Spent Total Time Spent (In Minutes): 45 Minutes Discharge Plan Discharge Items Patient Disposition: Transfer Care Home Fac Reason For Visit: SYNCOPE, L1 FRACTURE Discharge Diagnosis: Syncope and collapse, MAGAN, compression fracture of L1 vertebra Condition on Discharge: Fair Activity: Resume your previous activity Non-emergency contact: Surgeon Call non-emergency contact if: you have any medication questions and your symptoms worsen Follow-up/Referrals: Saúl Hendricks MD [Surgeon] - (Date & Time 04/02/2025 1:40 PM Provider: Saúl Hendricks MD Nephrology, [facility] ) Janie Pena MD [Primary Care Provider] - Genaro Han MD [Physician] - David Terrell MD [Surgeon] - Diet: Carb Consistent or DM2 and Heart Healthy Addtl Attending Provider Instructions: Please take precautions to avoid falls Take your medications as advised Please keep appointments with your healthcare providers Addtl Garnett Mechanic Provider Instructions: - Torsemide 80 mg twice daily No change to other medications from admission, specifically no need to discharge on potassium supplements or metolazone OTHER PT CARE: -1.5 L fluid limit and less than 2 g daily sodium diet Basic metabolic panel, phosphorus, albumin, hemoglobin, transferrin saturation, urinalysis microscopy, ACR to be ordered by her facility for 03/26/25 F/U APPTS - Keep already scheduled appointment with Dr. Hendricks April 02 If possible reschedule March 29 dialysis modality education to the following week ([facility] environmental restoration planner working on this) Needs appointment to establish care with Dr. Han in 2 to 3 weeks/after dialysis modality education to be evaluated for AV fistula creation and possible PD catheter placement Pending Studies at Discharge: No Stand-Alone Forms: [employer] Skilled Items Patient informed of condition?: Yes DNR: No Discharge Level of Care: Acute rehab Communicable Disease: No Discharge Prognosis: Stable Lines: None Urinary Catheter: Yes Medications and DC Order Prescriptions: New metoclopramide HCl 5 mg Tablet 5 mg PO ACHS Qty: 30 0RF lidocaine 5 % Adhesive Patch,Medicated 1 patch transdermal QAM Qty: 3 0RF torsemide 40 mg tablet 80 mg PO BID Qty: 120 0RF Continued clopidogrel 75 mg tablet 75 mg PO QAM famotidine 20 mg tablet 20 mg PO QAM escitalopram oxalate 10 mg tablet 10 mg PO QAM insulin aspart U-100 100 unit/mL (3 mL) insulin pen 1 sliding scale dose SUBCUT TIDWMEAL insulin glargine [Lantus Solostar U-100 Insulin] 100 unit/mL (3 mL) insulin pen 13 unit SUBCUT HS cholecalciferol (vitamin D3) [Vitamin D3] 50 mcg (2,000 unit) Tablet 50 mcg PO QAM omega 5-dza-tuf-fish oil [Fish Oil] 1,000 (120-180) mg Capsule 1 cap PO QAM multivit with min-folic acid [One-A-Day Women's 50 Plus] 0.4 mg Tablet 1 tab PO QAM aspirin 81 mg Tablet,Delayed Release (Dr/Ec) 81 mg PO QAM Qty: 1 0RF Discontinued torsemide 20 mg tablet 40 mg PO QAM Discharge Orders: Discharge Order (Routine); Ordered 03/22/25 Ordered By: Demond Galvin Admission Data Admit Date/Time: 03/13/25 16:12 Attending Provider: Demond Galvin Admit Provider: Kendrick Leiva Primary Care Provider: Janie Pena Other Providers: Kendrick Leiva; Saúl Hendricks; David Terrell; [place],[facility]; Luis Smith; Nilda Mederos Other Interventions: Discharge Summary Assessment (RN) Last Done: 03/22/25 15:25
== END 2025-03-22 16:36 | DRG 543 ==
LOC: ED 12:08 → SUATTDRO 16:12 → 2N 18:01 → SUATTDRO 18:23 → 2N 18:23
DX: Y92.89 Other specified places as the place of occurrence of the external cause; Z95.1 Presence of aortocoronary bypass graft; I25.10 Atherosclerotic heart disease of native coronary artery without angina pectoris; D63.1 Anemia in chronic kidney disease; I95.1 Orthostatic hypotension; E86.9 Volume depletion, unspecified; E11.22 Type 2 diabetes mellitus with diabetic chronic kidney disease; N18.31 Chronic kidney disease, stage 3a; F32.A Depression, unspecified; W18.30XA Fall on same level, unspecified, initial encounter; N17.9 Acute kidney failure, unspecified; F41.9 Anxiety disorder, unspecified; E87.79 Other fluid overload; Z79.02 Long term (current) use of antithrombotics/antiplatelets; Z79.4 Long term (current) use of insulin; E86.0 Dehydration; R79.89 Other specified abnormal findings of blood chemistry; Z87.891 Personal history of nicotine dependence; M80.88XA Other osteoporosis with current pathological fracture, vertebra(e), initial encounter for fracture; I25.2 Old myocardial infarction; K21.9 Gastro-esophageal reflux disease without esophagitis; E78.5 Hyperlipidemia, unspecified; R33.9 Retention of urine, unspecified

== ENCOUNTER 2025-03-26 13:15 | Inpatient (IN) ==
--- NOTE | 2025-03-26 13:32 | Emergency Department Note ---
Impression & Plan MAGAN (acute kidney injury), Decreased urine output, Elevated BUN ED Provider Note NAME: KYLAH MASSEY AGE: 74 SEX: F : 1950 ARRIVES VIA: Ambulance INFORMANT: Patient ED PROVIDER(S): Howard Mixon DO CHIEF COMPLAINT: MAGAN HPI: Patient is a 74-year-old female with a past medical history of CHF, MAGAN, diabetes and L1 compression fracture who had a cardiac bypass in January following which she needed 1 course of dialysis who presents to the ER from [facility]. She has been having blood work trending her creatinine. It has trended up to 5.8. She notes that she has not made any urine today. She denies any headache or change in vision. No chest pain or shortness of breath. No belly pain. No nausea, vomiting or diarrhea. No dysuria, urgency or frequency. No other exacerbating or remitting factors. ADDITIONAL HISTORY OBTAINED: Per HPI Chronic Medical/Social Conditions Affecting Care: Per HPI PAST MEDICAL HISTORY:See Below PAST SURGICAL HISTORY:See Below FAMILY HISTORY:See Below SOCIAL HISTORY:See Below HOME MEDICATIONS:See Below ALLERGIES:See Below VITALS:See Below PHYSICAL EXAMINATION: GENERAL: Sitting up in bed, alert, well appearing, well nourished, no distress, non-toxic EYE EXAM: normal conjunctiva. OROPHARYNX: no exudate, no erythema, lips, buccal mucosa, and tongue normal and mucous membranes are moist NECK: supple, no nuchal rigidity, no adenopathy, non-tender LUNGS: Clear to auscultation. Normal chest wall mechanics HEART: no murmurs, S1 normal and S2 normal ABDOMEN: abdomen soft, non-tender, normo-active bowel sounds, no masses, no rebound or guarding. BACK: Back is symmetrical on inspection and there is no deformity, no midline tenderness, no CVA tenderness. SKIN: no rashes and no bruising UPPER EXTREMITIES: upper extremities are grossly normal. LOWER EXTREMITIES: No pitting edema. NEURO EXAM: Normal sensorium, cranial nerves II-XII grossly intact, normal speech, no gross weakness of arms, no gross weakness of legs. MEDICAL DECISION MAKING: Patient is a 74-year-old female who presents ER for the above-stated complaint. She was referred in due to upward trending creatinine. IV was established blood work was obtained. Labs show no significant leukocytosis or anemia. BMP with a creatinine of 5.88 which is trending up from the threes and into the fours upon discharge several days ago. LFTs and bilirubin were unremarkable. Discussed with Dr. Bowser who requested that I speak with nephrology. I did discuss with Dr. Nguyen Metz who agrees with admission and will evaluate. I did rediscuss with Dr. Bowser. Patient was updated at bedside. Patient was admitted for further workup. External records were reviewed and showed a creatinine of 5.8 from earlier today performed at the residential/rehab facility. Consults/Care Managements Discussions: Per MDM Triage Nursing notes reviewed. Limited review of prior medical records performed Vital Signs: reviewed and remarkable for no significant abnormalities Differential diagnosis: Infection, dehydration, metabolic abnormality, hypo/hyperglycemia, electrolyte disturbance, anemia, hypoxia, cardiac sources, intracerebral event, toxicologic, neurologic, as well as other pathologies. ER treatment provided: See below Diagnostics interpreted by me include EKG and cardiac monitoring as listed below: -Cardiac Monitoring: An order was placed for continuous cardiac monitoring. The monitor shows a rate of 90 with sinus rhythm. -ECG: none -Laboratory studies:Interpreted by me as stated above in MDM and shown below. Imaging studies: Xrays: As interpreted by me:none CTs show: none Procedures: None Critical Care: None Past Med/Surg History Problem List (Updated 03/26/25 @ 15:25 by Howard Mixon DO) Elevated BUN (Acute) Decreased urine output (Acute) Depression MAGAN (acute kidney injury) (Acute) Diabetes mellitus type 2, insulin dependent Compression fracture of L1 lumbar vertebra Anemia Acute kidney injury superimposed on stage 3a chronic kidney disease CKD (chronic kidney disease) (Acute) CAD, multiple vessel Medical History (Updated 03/26/25 @ 15:25 by Howard Mixon DO) Non-ST elevation SC (NSTEMI) Syncope and collapse Elevated troponin History of orthostatic hypotension Weakness Fracture of lumbar spine Lumbar compression fracture Acute on chronic anemia Electrolyte abnormality Acute retention of urine Cardiac volume overload Statin intolerance Fibromyalgia HLD (hyperlipidemia) T2DM (type 2 diabetes mellitus) Surgical History (Updated 03/26/25 @ 14:56 by TERRI Sanchez) History of coronary artery bypass graft x 3 No pertinent past surgical history Family History Father Stroke Social History (Updated 03/26/25 @ 14:56 by TERRI Sanchez) Smoking Status: Former smoker Tobacco Type: Cigarettes Hx Alcohol Use: No Hx Substance Use: No Preferred Language: Lebanese Communication Ability: Effective Venetian Blind Machine Operator Required: No Beliefs That Will Affect Care: None Current Living Situation: Rehab Feels Safe at Home: Yes Assistive Devices: Cane and Walker Allergies Allergies Allergy/AdvReac Type Severity Reaction Status Date / Time prednisone Allergy Intermediate INJECTED--HIVES, Verified 03/13/25 15:13 ORAL--BLOOD SUGARS 300+ Home Meds Home Medications Medication Instructions Recorded Confirmed cholecalciferol (vitamin D3) 50 50 mcg PO QAM 12/20/24 03/26/25 mcg (2,000 unit) tablet (Vitamin D3) multivitamin with minerals-folic 1 tab PO QAM 12/20/24 03/26/25 acid 0.4 mg tablet (One-A-Day Women's 50 Plus) omega 8-cfs-qrz-fish oil 1,000 mg 1 cap PO QAM 12/20/24 03/26/25 (120 mg-180 mg) capsule (Fish Oil) clopidogrel 75 mg tablet 75 mg PO QAM 03/13/25 03/26/25 escitalopram oxalate 10 mg tablet 10 mg PO QAM 03/13/25 03/26/25 famotidine 20 mg tablet 20 mg PO QAM 03/13/25 03/26/25 insulin aspart U-100 100 unit/mL 1 sliding scale dose subcut 03/13/25 03/26/25 (3 mL) subcutaneous pen TIDWMEAL insulin glargine 100 unit/mL (3 13 unit subcut HS 03/13/25 03/26/25 mL) subcutaneous pen (Lantus Solostar U-100 Insulin) Previous Rx's Medication Instructions Recorded aspirin 81 mg tablet,delayed 81 mg PO QAM #1 tab 12/21/24 release lidocaine 5 % topical patch 1 patch transdermal QAM #3 ea 03/22/25 metoclopramide HCl 5 mg tablet 5 mg PO ACHS #30 tabs 03/22/25 torsemide 40 mg tablet 80 mg (2 x 40 mg) PO BID #120 tabs 03/22/25 Results & Data (ED) Vital Signs Vital Signs - 24 hr 03/26/25 13:39 03/26/25 13:39 03/26/25 13:40 Temperature 36.6 C 36.6 C Temperature Source Oral Oral Pulse Rate 94 H 94 H Pulse Rate [Apical] 94 H Respiratory Rate 16 16 16 Blood Pressure 109/55 L Blood Pressure [Left Arm] 109/55 L Blood Pressure Mean 73 Blood Pressure Mean [Left Arm] 73 Pulse Oximetry 97 97 97 Oxygen Delivery Method Room Air Room Air Room Air Sepsis Recent Fever Within 48 Hours No Sepsis New/Unexplained Change in Mental Status N/A Sepsis Action Taken by Nursing No Action Required 03/26/25 14:18 Temperature Temperature Source Pulse Rate 91 H Pulse Rate [Apical] Respiratory Rate Blood Pressure Blood Pressure [Left Arm] Blood Pressure Mean Blood Pressure Mean [Left Arm] Pulse Oximetry Oxygen Delivery Method Sepsis Recent Fever Within 48 Hours Sepsis New/Unexplained Change in Mental Status Sepsis Action Taken by Nursing Laboratory Data 03/26/25 13:36 03/26/25 13:36 Lab Results 03/26/25 Range/Units 13:36 WBC 7.74 (4.8-10.8) K/ul RBC 3.57 L (4.20-5.40) M/uL Hgb 12.1 (12.0-16.0) g/dl Hct 35.5 L (37.0-47.0) % MCV 99.4 (80.0-100.0) fL MCH 33.9 (25.0-34.0) pg MCHC 34.1 (32.0-36.0) g/dL RDW Std Deviation 61.7 H (36.4-46.3) fL RDW Coeff of Zeina 17.2 H (11.5-14.5) % Plt Count 495 H (130-400) K/uL MPV 9.7 (9.4-12.4) fL Immature Gran % (Auto) 0.8 % Neut % (Auto) 61.2 % Lymph % (Auto) 20.9 % [facility] % (Auto) 13.8 % Eos % (Auto) 2.8 % Baso % (Auto) 0.5 % Neut # (Auto) 4.73 (1.40-6.50) K/uL Lymph # (Auto) 1.62 (1.20-3.40) K/uL [facility] # (Auto) 1.07 H (0.11-0.59) K/uL Eos # (Auto) 0.22 (0.00-0.50) K/uL Baso # (Auto) 0.04 (0.00-0.20) K/uL Immature Gran # (Auto) 0.06 (0.01-0.20) K/uL Sodium 135 L (136-145) mmol/L Potassium 3.8 (3.5-5.1) mmol/L Chloride 87 L (98-107) mmol/L Carbon Dioxide 33 H (21-32) mmol/L Anion Gap 15 H (3-11) BUN 79 H (6-23) mg/dl Creatinine 5.88 H* (0.6-1.2) mg/dl Est Cr Clr Drug Dosing 7.3 ml/min eGFR 6.97 BUN/Creatinine Ratio 13.4 (10-20) Glucose 128 H (70-99(Fasting)) mg/dl Calcium 9.8 (8.6-10.3) mg/dl Total Bilirubin 0.4 (0.2-1.0) mg/dl AST 15 (13-39) U/L ALT 19 (7-52) U/L Alkaline Phosphatase 146 H (34-104) U/L Total Protein 7.5 (6.0-8.3) gm/dl Albumin 4.2 (3.4-5.0) gm/dl Globulin 3.3 (2.5-4.0) gm/dl Albumin/Globulin Ratio 1.3 (0.9-2) Administered Medications Discontinued Medications Sodium Chloride (Nss) 1,000 mls @ 999 mls/hr IV .Q1H1M ONE Stop: 03/26/25 14:27 Last Admin: 03/26/25 15:03 Dose: Not Given Documented By: GAYLE Discharge Plan Visit Data Chief Complaint: Abnormal Labs/Diagnostic Testing ED Provider: Howard Mixon Discharge Problem: MAGAN (acute kidney injury), Decreased urine output, Elevated BUN Condition: Fair
[2025-03-26 13:53] LABS: Hematocrit (blood only) 35.5 % (37.0-47.0); Hemoglobin 12.1 g/dl (12.0-16.0); Immature Granulocytes # (auto) 0.06 K/uL (0.01-0.20); Immature Granulocytes % (auto) 0.8 %; Mean Corpuscular Hemoglobin 33.9 pg (25.0-34.0); Mean Corpuscular Volume 99.4 fL (80.0-100.0); Platelet Count 495 K/uL (130-400); RDW Standard Deviation 61.7 fL (36.4-46.3); Red Blood Count 3.57 M/uL (4.20-5.40); White Blood Count 7.74 K/ul (4.8-10.8)
--- NOTE | 2025-03-26 14:06 | History & Physical Report ---
<Statement entered by Luis Smith, DO - 03/26/25 15:15> I have seen and examined the patient and have discussed the case with the advance practice provider. I have reviewed the advanced practitioner's documentation, and I agree with, and take responsibility for that plan of care. Patient seen while still in the ED, she states that she has been happy with her progress at [facility]. She felt as though she was getting stronger. Little disappointed to find out that her kidney function has deteriorated. She is definitely interested in doing hemodialysis. Patient does not examine overly dry. Will hold torsemide Further interventions as determined by nephrology. I spent a total of 16 minutes coordinating, documenting, and providing care for this patient excluding time spent by another provider/QHP. Date of Service March 26, 2025 Assessment & Plan (1) MAGAN (acute kidney injury): (2) Anemia: (3) Compression fracture of L1 lumbar vertebra: (4) Diabetes mellitus type 2, insulin dependent: (5) CAD, multiple vessel: (6) Depression: Plan 74 year old female from [facility] (currently residing there for rehab) with PMH significant for NSTEMI in November 2024, severe multivessel CAD s/p CABG x 3 [RODNEY to LAD and SVG to OM, PDA] on 12/25/2024 at [facility], uncontrolled DMII [Hgb A1c 12.9% in November 2024], HLD with history of statin intolerance, CKD stage IIIa, and constipation who presented to the ED on 03/26/2025 with worsening renal f unction detected on outpatient labs. Recent admission from 03/13-03/22/2025 for syncope suspected due to orthostasis. Her diuretics were held in the setting of low BP and syncope and she developed moderate bilateral pleural effusions. Diuresis was restarted which resulted in non-oliguric stage 3 MAGAN. Nephrology was consulted and provided discharge recommendations including torsemide 80mg bid, 1.5L fluid limit, <2g daily sodium diet with plans for repeat labs on 03/26. Her labs today revealed creat of 5.81 which is increased from 4.28 on 03/22/25. Dr Levin noted need for preparation for dialysis as outpatient given 2+ months with eGFR low teens or worse. Has follow up appointment with Dr Hendricks on 04/02 and was getting scheduled to establish care with Dr Han after dialysis modality educations to be evaluated for AV fistula creation and possible PD catheter placement. MAGAN Patient presented with creat 5.81 today (increased from 4.28 on 03/22/2025) Likely secondary to diuretics in setting of fluid overload during previous admission Hold torsemide and avoid nephrotoxic agents as able Monitor BMP Consult nephrology to evaluate need for possible hemodialysis Bilateral pleural effusions Detected on CXR and CT chest during previous admission Patient is not SOB or hypoxic and lungs sounds clear 1.5L fluid limit <2g daily sodium diet Strict I&Os Daily weights on standing scale Chronic anemia Hgb stable at 12.1 Received IV iron during previous admission Monitor CBC Compression fracture of L1 lumbar vertebra Detected on lumbar spine CT during previous admission TLSO brace while ambulating Pain control with scheduled tylenol tid and lidocaine patches daily Continue PT/OT services while inpt Diabetes BSG ACHS and SSI while inpt CAD s/p CABG Continue aspirin and plavix Depression Continue escitalopram DVT Prophylaxis: SQ Heparin Code Status: FULL CODE - As per discussion at bedside with the patient. PCP: Janie Pena Disposition: admit to med surg Patient seen in collaboration with Dr Smith. Please see addendum. I spent a total of 70 minutes coordinating, documenting and providing care for this patient excluding time spent in the performance of separately billed services or time spent by another provider/QHP. Admission and Anticipated Discharge Date Admission Date: 03/26/2025 History of Present Illness Chief Complaint: worsening creatinine Primary Care Provider: Janie Pena MD 74 year old female from [facility] (currently residing there for rehab) with PMH significant for NSTEMI in November 2024, severe multivessel CAD s/p CABG x 3 [RODNEY to LAD and SVG to OM, PDA] on 12/25/2024 at [facility], uncontrolled DMII [Hgb A1c 12.9% in November 2024], HLD with history of statin intolerance, CKD stage IIIa, and constipation who presented to the ED on 03/26/2025 with worsening renal function detected on outpatient labs. Recent admission from 03/13-03/22/2025 for syncope suspected due to orthostasis. Her diuretics were held in the setting of low BP and syncope and she developed moderate bilateral pleural effusions. Diuresis was restarted which resulted in non-oliguric stage 3 MAGAN. Nephrology was consulted and provided discharge recommendations including torsemide 80mg bid, 1.5L fluid limit, <2g daily sodium diet with plans for repeat labs on 03/26. Her labs today revealed creat of 5.81 which is increased from 4.28 on 03/22/25. Dr Levin noted need for preparation for dialysis as outpatient given 2+ months with eGFR low teens or worse. Has follow up appointment with Dr Hendricks on 04/02 and was getting scheduled to establish care with Dr Han after dialysis modality educations to be evaluated for AV fistula creation and possible PD catheter placement. Patient seen in the ED. Reports she has not been urinating very much, last full void around 0600 with only a small trickle prior to ambulance ride to ED. She reports rehab has been going well. She is enjoying her stay at [facility]. Reports 5/10 back pain. Notes pain has been controlled with tylenol and lidocaine patches. Notes constipation where she had a bowel movement yesterday but it had been two days for her. She has been drinking prune juice to help. Den ies syncopal episodes, dizziness, chest pain, SOB, abdominal pain, N/V. Allergies Allergy/AdvReac Type Severity Reaction Status Date / Time prednisone Allergy Intermediate INJECTED--HIVES, Verified 03/13/25 15:13 ORAL--BLOOD SUGARS 300+ Home Medications Medication Instructions Recorded Confirmed Type cholecalciferol (vitamin D3) 50 50 mcg PO QAM 12/20/24 03/26/25 History mcg (2,000 unit) tablet (Vitamin D3) multivitamin with minerals-folic 1 tab PO QAM 12/20/24 03/26/25 History acid 0.4 mg tablet (One-A-Day Women's 50 Plus) omega 8-[id number]-[id number]-fish oil 1,000 mg 1 cap PO QAM 12/20/24 03/26/25 History (120 mg-180 mg) capsule (Fish Oil) aspirin 81 mg tablet,delayed 81 mg PO QAM #1 tab 12/21/24 03/26/25 Rx release clopidogrel 75 mg tablet 75 mg PO QAM 03/13/25 03/26/25 History escitalopram oxalate 10 mg tablet 10 mg PO QAM 03/13/25 03/26/25 History famotidine 20 mg tablet 20 mg PO QAM 03/13/25 03/26/25 History insulin aspart U-100 100 unit/mL 1 sliding scale dose subcut 03/13/25 03/26/25 History (3 mL) subcutaneous pen TIDWMEAL insulin glargine 100 unit/mL (3 13 unit subcut HS 03/13/25 03/26/25 History mL) subcutaneous pen (Lantus Solostar U-100 Insulin) lidocaine 5 % topical patch 1 patch transdermal QAM #3 ea 03/22/25 03/26/25 Rx metoclopramide HCl 5 mg tablet 5 mg PO ACHS #30 tabs 03/22/25 03/26/25 Rx torsemide 40 mg tablet 80 mg (2 x 40 mg) PO BID #120 tabs 03/22/25 03/26/25 Rx Past Med/Surg History Problem List (Updated 03/26/25 @ 14:56 by TERRI Sanchez) Depression MAGAN (acute kidney injury) Diabetes mellitus type 2, insulin dependent Compression fracture of L1 lumbar vertebra Anemia Acute kidney injury superimposed on stage 3a chronic kidney disease CKD (chronic kidney disease) (Acute) CAD, multiple vessel Medical History (Updated 03/26/25 @ 14:56 by TERRI Sanchez) Non-ST elevation NC (NSTEMI) Syncope and collapse Elevated troponin History of orthostatic hypotension Weakness Fracture of lumbar spine Lumbar compression fracture Acute on chronic anemia Electrolyte abnormality Acute retention of urine Cardiac volume overload Statin intolerance Fibromyalgia HLD (hyperlipidemia) T2DM (type 2 diabetes mellitus) Surgical History (Updated 03/26/25 @ 14:56 by TERRI Sanchez) History of coronary artery bypass graft x 3 No pertinent past surgical history Family History Father Stroke Social History (Updated 03/26/25 @ 14:56 by TERRI Sanchez) Smoking Status: Former smoker Tobacco Type: Cigarettes Hx Alcohol Use: No Hx Substance Use: No Preferred Language: Belarusian Communication Ability: Effective Mail Sorter Required: No Beliefs That Will Affect Care: None Current Living Situation: Rehab Feels Safe at Home: Yes Assistive Devices: Cane and Walker Review of Systems Review of Systems: All systems reviewed & are unremarkable except as noted in HPI & below Physical Exam Physical Exam: General/Psych: WD/WN, sitting up in bed, NAD, conversing easily Head: normocephalic, atraumatic Eyes: normal inspection, PERRL, conjunctivae pink ENT: external ear and nose normal, oropharynx normal Neck: normal visual inspection, trachea midline Respiratory: normal respiratory effort, lungs clear to auscultation, no wheeze/rales/rhonchi, no accessory muscle use Cardiovascular: regular rate and rhythm, no murmur/rub/gallop, no JVD Extremities: no cyanosis or clubbing, normal peripheral pulses, no BLE edema Abdomen/GI: normal bowel sounds, soft, nontender Neurologic/MSK: A+Ox3, motor strength 5/5, moves all extremities Skin: no rashes, normal color, warm and dry Results & Data Results & Data Vital Signs (Past 12 Hours) Vital Signs Temp Pulse Pulse Resp BP BP Pulse Ox 03/26/25 13:40 36.6 C 94 H 16 109/55 L 97 03/26/25 13:39 94 H 16 97 03/26/25 13:39 36.6 C 94 H 16 109/55 L 97 O2 Del Method 03/26/25 13:40 Room Air 03/26/25 13:39 Room Air 03/26/25 13:39 Room Air Laboratory Results Short CBC 03/26/25 Range/Units 13:36 WBC 7.74 (4.8-10.8) K/ul Hgb 12.1 (12.0-16.0) g/dl Hct 35.5 L (37.0-47.0) % Plt Count 495 H (130-400) K/uL BMP 03/26/25 13:36 Sodium 135 L Potassium 3.8 Chloride 87 L Carbon Dioxide 33 H BUN 79 H Creatinine 5.88 H* Glucose 128 H Calcium 9.8 Liver Function 03/26/25 Range/Units 13:36 Total Bilirubin 0.4 (0.2-1.0) mg/dl AST 15 (13-39) U/L ALT 19 (7-52) U/L Alkaline Phosphatase 146 H (34-104) U/L Albumin 4.2 (3.4-5.0) gm/dl I have independently reviewed and interpreted patient's admitting labs including CBC and CMP. Code Status & VTE Plan Code Status Full Code (2) Anemia Anemia type: unspecified type Qualified Code(s): D64.9 - Anemia, unspecified
[2025-03-26 14:10] LABS: Alanine Aminotransferase 19.0 U/L (7-52); Albumin Globulin Ratio 1.3 (0.9-2); Alkaline Phosphatase 146.0 U/L (34-104); Anion Gap 15.0 (3-11); Bilirubin,Total 0.4 mg/dl (0.2-1.0); Blood Urea Nitrogen 79.0 mg/dl (6-23); Calcium 9.8 mg/dl (8.6-10.3); Carbon Dioxide 33.0 mmol/L (21-32); Chloride 87.0 mmol/L (98-107); Creatinine Clr Calc Pharmacy 7.3 ml/min; Globulin 3.3 gm/dl (2.5-4.0); Glucose 128.0 mg/dl (70-99(Fasting)); Potassium 3.8 mmol/L (3.5-5.1); Sodium 135.0 mmol/L (136-145); Total Protein 7.5 gm/dl (6.0-8.3)
[2025-03-26] MEDS: SODIUM CHLORIDE 0.9% 1,000 ML IV ONE (15:03)
[2025-03-26] MEDS ORDERED: GLUCAGON FOR INJ 1 MG VIAL SQ PRN (15:10)
[2025-03-26] MEDS ORDERED: CARBOHYDRATES FOR HYPOGLYCEMIA PO PRN (15:10)
[2025-03-26] MEDS ORDERED: PHARMACY GLYCEMIC MGMT CONSULT PRN (15:10)
[2025-03-26] MEDS ORDERED: GLUCOSE 40% GEL 15 GM TUBE PO PRN (15:10)
[2025-03-26] MEDS ORDERED: DEXTROSE 50% 50 ML SYRINGE IV PRN (15:10)
[2025-03-26] MEDS ORDERED: POLYETHYLENE (MIRALAX) 17 GM PACK PO PRN (15:10)
--- NOTE | 2025-03-26 15:46 | Nephrology Consultation ---
Date of Consultation March 26, 2025 Assessment & Plan (1) MAGAN (acute kidney injury): Her baseline creatinine in spring 2024 was 1.0 prior to NSTEMI. However since the NSTEMI and since needing 1 dialysis treatment during her hospitalization in December, creatinine has hovered more in the low 2 mid fours; it was 4.3 on recent hospital discharge. Labs today show creatinine 5.8 on high-dose torsemide from discharge last week. More than likely this is prerenal on extremely advanced renal failure. Even last week her GFR was 10 at hospital discharge. While she is very close to needing dialysis chronically she does not need it urgently. I am cautiously hopeful that we can adjust diuretic doses watch her renal function and discharge without having to start dialysis; that said I cannot rule out a start to dialysis during her stay this time. Despite her extremely low GFR, no florid uremic symptoms at this time and no indication for urgent start. Normal saline 250 mL x 1 ordered to be given slowly at 100 mL hourly Continue to hold diuretics tonight If no improvement in creatinine by tomorrow, will need renal imaging Urinalysis with microscopy ordered already and will follow-up Care coordinated with Dr. Smith re IV fluid, diuretic and dialysis plans via [place] text; we are in agreement. (2) Compression fracture of L1 lumbar vertebra: Per primary service; continue lumbar brace (3) Anemia: Markedly improved after recent iron load and 2 doses of ZAK during last admission. Monitor hemoglobin every other day History of Present Illness Reason for Consultation: MAGAN Requesting Physician: Dr Mixon Attending Physician: Luis Smith, History of Present Illness 74 y/o F whom I'm asked to see for MAGAN was just d/c from here on 03/23 to [facility] and sent back from there today after surveillance labs showed creatinine 5.8 (up from 4.3 at d/c). PMH includes NSTEMI November 2024 s/p CABG x 3 on 12/25/2024; h/o very uncontrolled DMII; h/o nonadherence to med recommendations in the past; also s/p lumbar compression fracture after syncopal episode 03/13. Admitted [facility] from 12/21/24- 01/08/25 for NSTEMI/CABG w/ postop course complicated by MAGAN/ATN requiring CRRT x 1 session, acute anemia requiring PRBC transfusion and new-onset atrial fibrillation with conversion back to NSR s/p IV amiodarone. Of note her baseline creatinine prior to november 2024 NSTEMI was 1.0. Renal US was normal on 12/29/24. No renal biopsy was completed. She was d/c to rehab on 80 mg daily torsemide from [facility] mid December. torse reduced early february to 40 mg daily d/t orthostatic sx. Creatinine remained elevated through the summer >> 4.6 on 01/21, 4.4 on 03/01, 4.5 on 03/13, 4.3 at [facility] d/c last week 03/22 (GFR 10). Admitted here 03/13-03/22 w/ lumbar fracture after syncope and BL pleural effusions, for which she tolerated diuresis. She was d/c to rehab on 80 mg bid torsemide. She is on RA; torsemide is held; she has had no IVF in ED. No fever no chills no acute confusion no shortness of breath orthopnea. She does get a twinge of substernal pain when she is holding the railings to keep herself sitting forward but this resolves with leaning back. No other chest pain. No edema. Denies nausea or vomiting or metallic taste to foods. Some bilateral mild lower periumbilical abdominal pain. Bowel movement yesterday. No diarrhea. No rash. Notes decreased urine output today compared to the weekend, but no burning or gross hematuria. Allergies Allergy/AdvReac Type Severity Reaction Status Date / Time prednisone Allergy Intermediate INJECTED--HIVES, Verified 03/13/25 15:13 ORAL--BLOOD SUGARS 300+ Home Medications Medication Instructions Recorded Confirmed Type cholecalciferol (vitamin D3) 50 50 mcg PO QAM 12/20/24 03/26/25 History mcg (2,000 unit) tablet (Vitamin D3) multivitamin with minerals-folic 1 tab PO QAM 12/20/24 03/26/25 History acid 0.4 mg tablet (One-A-Day Women's 50 Plus) omega 6-esp-vek-fish oil 1,000 mg 1 cap PO QAM 12/20/24 03/26/25 History (120 mg-180 mg) capsule (Fish Oil) aspirin 81 mg tablet,delayed 81 mg PO QAM #1 tab 12/21/24 03/26/25 Rx release clopidogrel 75 mg tablet 75 mg PO QAM 03/13/25 03/26/25 History escitalopram oxalate 10 mg tablet 10 mg PO QAM 03/13/25 03/26/25 History famotidine 20 mg tablet 20 mg PO QAM 03/13/25 03/26/25 History insulin aspart U-100 100 unit/mL 1 sliding scale dose subcut 03/13/25 03/26/25 History (3 mL) subcutaneous pen TIDWMEAL insulin glargine 100 unit/mL (3 13 unit subcut HS 03/13/25 03/26/25 History mL) subcutaneous pen (Lantus Solostar U-100 Insulin) lidocaine 5 % topical patch 1 patch transdermal QAM #3 ea 03/22/25 03/26/25 Rx metoclopramide HCl 5 mg tablet 5 mg PO ACHS #30 tabs 03/22/25 03/26/25 Rx torsemide 40 mg tablet 80 mg (2 x 40 mg) PO BID #120 tabs 03/22/25 03/26/25 Rx Patient History Medical History Non-ST elevation NM (NSTEMI) Syncope and collapse Elevated troponin History of orthostatic hypotension Weakness Fracture of lumbar spine Lumbar compression fracture Acute on chronic anemia Electrolyte abnormality Acute retention of urine Cardiac volume overload Statin intolerance Fibromyalgia HLD (hyperlipidemia) T2DM (type 2 diabetes mellitus) Surgical History History of coronary artery bypass graft x 3 No pertinent past surgical history Family History Father Stroke Social History Smoking Status: Former smoker Tobacco Type: Cigarettes Hx Alcohol Use: No Hx Substance Use: No Preferred Language: Hong Konger Communication Ability: Effective Mail Carriers Supervisor Required: No Beliefs That Will Affect Care: None Current Living Situation: Rehab Feels Safe at Home: Yes Assistive Devices: Cane and Walker Review of Systems 2 Review of Systems: All systems reviewed & are unremarkable except as noted in HPI & below Physical Exam 2 Constitutional: well developed, well nourished, + physical limitations, + frail appearing and cooperative; no acute distress Eyes: EOM intact bilaterally ENMT: Mouth: + dry oral mucous membranes Respiratory: normal respiratory effort Auscultation: + diminished lung sounds Cardiovascular: RRR, no murmur, no edema Gastrointestinal (Abdomen): Inspection/Auscultation: normal bowel sounds P ercussion/Palpation: abdomen soft; abdomen nontender Musculoskeletal: Extremities: strength 5/5 throughout Skin: no rashes, warm and dry Neurologic: [place], fluent speech, no tremor Results & Data Vital Signs (Past 12 Hours) Vital Signs Temp Pulse Pulse Resp BP BP Pulse Ox 03/26/25 14:18 91 H 03/26/25 13:40 36.6 C 94 H 16 109/55 L 97 03/26/25 13:39 94 H 16 97 03/26/25 13:39 36.6 C 94 H 16 109/55 L 97 O2 Del Method 03/26/25 14:18 03/26/25 13:40 Room Air 03/26/25 13:39 Room Air 03/26/25 13:39 Room Air Laboratory Results 03/26/25 13:36 03/26/25 13:36 Diagnostic Findings none (3) Anemia Anemia type: unspecified type Qualified Code(s): D64.9 - Anemia, unspecified
[2025-03-26] MEDS: SODIUM CHLORIDE 0.9% 250 ML IV ONE (16:59)
[2025-03-26] MEDS: METOCLOPRAMIDE HCL 5 MG TABLET PO SCH (16:59)
[2025-03-26] MEDS: INSULIN ASPART PER UNIT CHARGE SC SCH (18:52)
--- NOTE | 2025-03-26 18:53 | Pharmacy Report ---
Pharmacy Glycemic Short Note 2 - Date of Service March 26, 2025 - Glycemic Short BSG Results (Last 24 hours): 03/26/25 03/26/25 13:36 16:43 Glucose 128 H POC Glucose 120 H OUTPATIENT ANTIDIABETIC REGIMEN: * Lantus 13 units SQ qHS * Aspart TID with meals ASSESSMENT: * Zena is a 74 yo with complicated PMH including NSTEMI 11/2024, severe multivessel CAD s/p CABG x 3, uncontrolled DMII, hyperlipidemia and CKD stage IIIa who presented to the ED due to worsening renal function. Recent admission 03/13-03/22/2025 for syncope suspected due to orthostasis. * During recent admission, patient required minimal insulin (~4-8 units of Novolog per day). She was initially started on Lantus 5 units BID but this was held after just a few doses due to fasting hypoglycemia. * Will start conservative Novolog CF + CR and withhold basal insulin for now. PLAN FOR INPATIENT GLYCEMIC CONTROL: * Basal insulin * none * Bolus insulin * NovoLog per scale ACHS or Q6hrs while NPO * Goal Range: Low 120 mg/dL - High 160 mg/dL * Correction Factor: 35 mg/dL/unit * Nutritional / Prandial insulin per carb ratio of 1 unit per 25 grams CHO consumed
[2025-03-26] MEDS: HEPARIN SOD 5,000 UNIT/0.5 ML VIAL SQ SCH (20:30)
[2025-03-26] MEDS: ACETAMINOPHEN 500 MG TAB PO SCH (20:30)
[2025-03-26 20:34] LABS: Appearance Urine Clear (Clear); Glucose Urine UA Negative (Negative)
[2025-03-26] MEDS: REMOVE LIDODERM PATCH SCH (20:42)
[2025-03-26] MEDS: MELATONIN 3 MG TAB PO PRN (23:14)
[2025-03-27 08:03] LABS: Hematocrit (blood only) 34.5 % (37.0-47.0); Hemoglobin 11.1 g/dl (12.0-16.0); Mean Corpuscular Hemoglobin 32.3 pg (25.0-34.0); Mean Corpuscular Volume 100.3 fL (80.0-100.0); Platelet Count 439 K/uL (130-400); RDW Standard Deviation 62.6 fL (36.4-46.3); Red Blood Count 3.44 M/uL (4.20-5.40); White Blood Count 6.69 K/ul (4.8-10.8)
[2025-03-27 08:24] LABS: Anion Gap 14.0 (3-11); Blood Urea Nitrogen 80.0 mg/dl (6-23); Calcium 9.4 mg/dl (8.6-10.3); Carbon Dioxide 32.0 mmol/L (21-32); Chloride 90.0 mmol/L (98-107); Creatinine Clr Calc Pharmacy 7.1 ml/min; Glucose 106.0 mg/dl (70-99(Fasting)); Potassium 3.6 mmol/L (3.5-5.1); Sodium 136.0 mmol/L (136-145)
[2025-03-27] MEDS: ASPIRIN 81 MG ECTAB PO SCH (10:06)
[2025-03-27] MEDS: CHOLECALCIFEROL 25 MCG (1000 UNITS) TAB PO SCH (10:06)
[2025-03-27] MEDS: ESCITALOPRAM OXALATE 10 MG TAB PO SCH (10:09)
[2025-03-27] MEDS: CLOPIDOGREL BISULFATE 75 MG TAB PO SCH (10:09)
[2025-03-27] MEDS: FAMOTIDINE 20 MG TAB PO SCH (10:10)
[2025-03-27] MEDS: LIDOCAINE 5% 1 PATCH TD SCH (10:10)
[2025-03-27] MEDS: MULTIVITAMIN TAB PO SCH (10:11)
[2025-03-27] MEDS: POLYETHYLENE (MIRALAX) 17 GM PACK PO SCH (10:21)
--- NOTE | 2025-03-27 15:31 | Nephrology Progress Note ---
Date of Service March 27, 2025 Assessment & Plan (1) MAGAN (acute kidney injury): Plan: Her baseline creatinine in spring 2024 was 1.0 prior to NSTEMI. However since the NSTEMI and since needing 1 dialysis treatment during her hospitalization in December, creatinine has hovered more in the low to mid fours; it was 4.3 on recent hospital discharge 03/22. Labs 03/26 admission show creatinine 5.8 on high-dose torsemide from discharge last week. Creatinine slightly worse today at 6.0. Potassium 3.6. More than likely this is prerenal on extremely advanced renal failure. Even last week her GFR was 10 at hospital discharge. While she is very close to needing dialysis chronically she does not need it urgently. I am cautiously hopeful that we can adjust diuretic doses watch her renal function and discharge without having to start dialysis; that said I cannot rule out a start to dialysis during her stay this time. Despite her extremely low GFR, no florid uremic symptoms at this time and no indication for urgent start. minimal response to 250 ML NS fluid bolus; UA bland Although no improvement in creatinine, do not believe she needs renal imaging - continue to hold diuretics - no urgent indication for dialysis but very close Care coordinated with Dr. Alexis odell diuretic, monitoring, and dialysis plans via [place] text; we are in agreement. (2) Compression fracture of L1 lumbar vertebra: Plan: Per primary service; continue lumbar brace (3) Anemia: Plan: Markedly improved after recent iron load and 2 doses of ZAK during last admission. Monitor hemoglobin every other day: Was 11.1 today Admission and Anticipated Discharge Date Admission Date: March 26, 2025 Subjective Did 9 steps today. Denies nausea vomiting. Wondering if Reglan could be as needed instead of standing. No exertional dyspnea. No edema. Review of Systems 2 Review of Systems: All systems reviewed & are unremarkable except as noted in Subjective Physical Exam 2 Constitutional: well developed, well nourished, + physical limitations, + frail appearing and cooperative; no acute distress Sitting up in chair in brace Eyes: EOM intact bilaterally ENMT: Mouth: + dry oral mucous membranes Respiratory: normal respiratory effort Auscultation: + diminished lung sounds Cardiovascular: RRR, no murmur, no edema Gastrointestinal (Abdomen): Inspection/Auscultation: normal bowel sounds P ercussion/Palpation: abdomen soft; abdomen nontender Musculoskeletal: Extremities: strength 5/5 throughout Skin: no rashes, warm and dry Results & Data Vital Signs (Past 12 Hours) Vital Signs Temp Pulse Resp BP Pulse Ox O2 Del Method 03/27/25 15:15 36.9 C 89 18 102/67 95 Room Air 03/27/25 08:18 36.7 C 86 16 96/62 L 94 Room Air Laboratory Results 03/27/25 06:58 03/27/25 06:58 (3) Anemia Anemia type: unspecified type Qualified Code(s): D64.9 - Anemia, unspecified
--- NOTE | 2025-03-27 15:32 | Hospitalist Progress Note ---
Date of Service March 27, 2025 Assessment & Plan (1) MAGAN (acute kidney injury): (2) Anemia: (3) Compression fracture of L1 lumbar vertebra: (4) Diabetes mellitus type 2, insulin dependent: (5) CAD, multiple vessel: (6) Depression: Plan 74 year old female from [facility] (currently residing there for rehab) with PMH significant for NSTEMI in November 2024, severe multivessel CAD s/p CABG x 3 [RODNEY to LAD and SVG to OM, PDA] on 12/25/2024 at [place], uncontrolled DMII [Hgb A1c 12.9% in November 2024], HLD with history of statin intolerance, CKD stage IIIa, and constipation who presented to the ED on 03/26/2025 with worsening renal function detected on outpatient labs. Recent admission from 03/13-03/22/2025 for syncope suspected due to orthostasis. Her diuretics were held in the setting of low BP and syncope and she developed moderate bilateral pleural effusions. Diuresis was restarted which resulted in non-oliguric stage 3 MAGAN. Nephrology was consulted and provided discharge recommendations including torsemide 80mg bid, 1.5L fluid limit, <2g daily sodium diet with plans for repeat labs on 03/26. Her labs today revealed creat of 5.81 which is increased from 4.28 on 03/22/25. Dr Levin (nephrology) noted need for preparation for dialysis as outpatient given 2+ months with eGFR low teens or worse. Has follow up appointment with Dr Hendricks on 04/02 and was getting scheduled to establish care with Dr Han after dialysis modality educations to be evaluated for AV fistula creation and possible PD catheter placement. MAGAN Patient presented with creat 5.81 (increased from 4.28 on 03/22/2025) Likely secondary to diuretics in setting of fluid overload during previous admission Hold torsemide and avoid nephrotoxic agents as able Monitor BMP Consult nephrology to evaluate need for possible hemodialysis Cr now 6 (03/27/2025) Nephrology following and discussed with , contemplating dialysis, for now want to cont. closely monitor Bilateral pleural effusions Detected on CXR and CT chest during previous admission Patient is not SOB or hypoxic and lungs sounds clear 1.5L fluid limit <2g daily sodium diet Strict I&Os Daily weights on standing scale Chronic anemia Hgb stable at 12.1 Received IV iron during previous admission Monitor CBC Compression fracture of L1 lumbar vertebra Detected on lumbar spine CT during previous admission TLSO brace while ambulating Pain control with scheduled tylenol tid and lidocaine patches daily Continue PT/OT services while inpt Diabetes BSG ACHS and SSI while inpt CAD s/p CABG Continue aspirin and plavix Depression Continue escitalopram DVT Prophylaxis: SQ Heparin Code Status: FULL CODE PCP:Dr. Janie Pena Admission and Anticipated Discharge Date Admission Date: March 26, 2025 Subjective Pt seen in follow up of MAGAN Nephrology consulted and discussed with, contemplating dialysis but for now, cont. to monitor renal function, hold diuretics Pt is currently sitting up in bed in NAD. She is awake, alert, oriented, says overall she feels well. Reports she was somewhat short of breath after she did steps with PT. Currently denies any chest pain or shortness of breath. Also de nies any abd.pain, n/v. She is making urine. Review of Systems Review of Systems: All systems reviewed & are unremarkable except as noted in Subjective Physical Exam Physical Exam: General/Psych: WD/WN, sitting up in bed, NAD, conversing easily Head: normocephalic, atraumatic Eyes: normal inspection, PERRL ENT: external ear and nose normal, oropharynx normal Neck: normal visual inspection Respiratory: normal respiratory effort, lungs clear to auscultation Cardiovascular: regular rate and rhythm Extremities: no BLE edema, moves extremities Abdomen/GI: normal bowel sounds, soft, nontender Neurologic/MSK: A+Ox3, speech fluent, answers appropriately, no facial asymmetry, moves all extremities Skin: no rashes, normal color, warm and dry Results & Data Results & Data Vital Signs (Past 12 Hours) Vital Signs Temp Pulse Resp BP Pulse Ox O2 Del Method 03/27/25 15:15 36.9 C 89 18 102/67 95 Room Air 03/27/25 08:18 36.7 C 86 16 96/62 L 94 Room Air Laboratory Results 03/27/25 03/27/25 03/27/25 Range/Units 11:52 08:04 06:58 WBC 6.69 (4.8-10.8) K/ul RBC 3.44 L (4.20-5.40) M/uL Hgb 11.1 L (12.0-16.0) g/dl Hct 34.5 L (37.0-47.0) % MCV 100.3 H (80.0-100.0) fL MCH 32.3 (25.0-34.0) pg MCHC 32.2 (32.0-36.0) g/dL RDW Std Deviation 62.6 H (36.4-46.3) fL RDW Coeff of Zeina 17.2 H (11.5-14.5) % Plt Count 439 H (130-400) K/uL MPV 9.8 (9.4-12.4) fL Sodium 136 (136-145) mmol/L Potassium 3.6 (3.5-5.1) mmol/L Chloride 90 L (98-107) mmol/L Carbon Dioxide 32 (21-32) mmol/L Anion Gap 14 H (3-11) BUN 80 H (6-23) mg/dl Creatinine 6.04 H* (0.6-1.2) mg/dl Est Cr Clr Drug Dosing 7.1 ml/min eGFR 6.75 BUN/Creatinine Ratio 13.2 (10-20) Glucose 106 H (70-99(Fasting)) mg/dl POC Glucose 221 H 117 H (70-99) mg/dl Calcium 9.4 (8.6-10.3) mg/dl Urine Color Urine Appearance (Clear) Urine pH (4.5-7.5) Ur Specific Leroy (1.000-1.030) Urine Protein (Negative) Urine Glucose (UA) (Negative) Urine Ketones (Negative) Urine Blood (Negative) Urine Nitrite (Negative) Urine Bilirubin (Negative) Urine Urobilinogen (Negative) Ur Leukocyte Esterase (Negative) Urine Comment Nasal Screen MRSA (PCR) (Negative) 03/27/25 03/26/25 03/26/25 Range/Units 01:50 20:18 19:54 WBC (4.8-10.8) K/ul RBC (4.20-5.40) M/uL Hgb (12.0-16.0) g/dl Hct (37.0-47.0) % MCV (80.0-100.0) fL MCH (25.0-34.0) pg MCHC (32.0-36.0) g/dL RDW Std Deviation (36.4-46.3) fL RDW Coeff of Zeina (11.5-14.5) % Plt Count (130-400) K/uL MPV (9.4-12.4) fL Sodium (136-145) mmol/L Potassium (3.5-5.1) mmol/L Chloride (98-107) mmol/L Carbon Dioxide (21-32) mmol/L Anion Gap (3-11) BUN (6-23) mg/dl Creatinine (0.6-1.2) mg/dl Est Cr Clr Drug Dosing ml/min eGFR BUN/Creatinine Ratio (10-20) Glucose (70-99(Fasting)) mg/dl POC Glucose 156 H (70-99) mg/dl Calcium (8.6-10.3) mg/dl Urine Color Yellow Urine Appearance Clear (Clear) Urine pH 6.5 (4.5-7.5) Ur Specific Leroy 1.011 (1.000-1.030) Urine Protein Negative (Negative) Urine Glucose (UA) Negative (Negative) Urine Ketones Negative (Negative) Urine Blood Negative (Negative) Urine Nitrite Negative (Negative) Urine Bilirubin Negative (Negative) Urine Urobilinogen Negative (Negative) Ur Leukocyte Esterase Negative (Negative) Urine Comment Nasal Screen MRSA (PCR) Negative (Negative) 03/26/25 Range/Units 16:43 WBC (4.8-10.8) K/ul RBC (4.20-5.40) M/uL Hgb (12.0-16.0) g/dl Hct (37.0-47.0) % MCV (80.0-100.0) fL MCH (25.0-34.0) pg MCHC (32.0-36.0) g/dL RDW Std Deviation (36.4-46.3) fL RDW Coeff of Zeina (11.5-14.5) % Plt Count (130-400) K/uL MPV (9.4-12.4) fL Sodium (136-145) mmol/L Potassium (3.5-5.1) mmol/L Chloride (98-107) mmol/L Carbon Dioxide (21-32) mmol/L Anion Gap (3-11) BUN (6-23) mg/dl Creatinine (0.6-1.2) mg/dl Est Cr Clr Drug Dosing ml/min eGFR BUN/Creatinine Ratio (10-20) Glucose (70-99(Fasting)) mg/dl POC Glucose 120 H (70-99) mg/dl Calcium (8.6-10.3) mg/dl Urine Color Urine Appearance (Clear) Urine pH (4.5-7.5) Ur Specific Leroy (1.000-1.030) Urine Protein (Negative) Urine Glucose (UA) (Negative) Urine Ketones (Negative) Urine Blood (Negative) Urine Nitrite (Negative) Urine Bilirubin (Negative) Urine Urobilinogen (Negative) Ur Leukocyte Esterase (Negative) Urine Comment Nasal Screen MRSA (PCR) (Negative) Medications Administered Current Inpatient Medications Acetaminophen (Acetaminophen 500 Mg Tab) 1,000 mg PO TID [facility] Stop: 04/25/25 20:59 Last Admin: 03/27/25 14:56 Dose: 1,000 mg Aspirin (Aspirin 81 Mg Ectab) 81 mg PO [facility] Stop: 04/26/25 08:59 Last Admin: 03/27/25 10:06 Dose: 81 mg Clopidogrel Bisulfate (Clopidogrel Bisulfate 75 Mg Tab) 75 mg PO [facility] Stop: 04/26/25 08:59 Last Admin: 03/27/25 10:09 Dose: 75 mg Dextrose (Dextrose 50% 50 Ml Syringe) 25 - 50 ml IV UD PRN; Protocol PRN Reason: Hypoglycemia Protocol Stop: 04/25/25 15:09 Escitalopram Oxalate (Escitalopram Oxalate 10 Mg Tab) 10 mg PO [facility] Stop: 04/26/25 08:59 Last Admin: 03/27/25 10:09 Dose: 10 mg Famotidine (Famotidine 20 Mg Tab) 20 mg PO [facility] Stop: 04/26/25 08:59 Last Admin: 03/27/25 10:10 Dose: 20 mg Glucagon (Glucagon For Inj 1 Mg Vial) 1 mg SQ UD PRN; Protocol PRN Reason: Hypoglycemia Protocol Stop: 04/25/25 15:09 Glucose (Glucose 40% Gel 15 Gm Tube) 15 - 30 gm PO UD PRN; Protocol PRN Reason: Hypoglycemia Protocol Stop: 04/25/25 15:09 Glucose (Glucose 10 Tab/Tube) 4 - 8 tab PO UD PRN; Protocol PRN Reason: Hypoglycemia Protocol Stop: 04/25/25 15:09 Last Admin: 03/27/25 17:05 Dose: 4 tab Heparin Sodium (Porcine) (Heparin Sod 5,000 Unit/0.5 Ml Vial) 5,000 units SQ Q12 [facility] Stop: 04/25/25 20:59 Last Admin: 03/27/25 11:05 Dose: 5,000 units Insulin Aspart (Insulin Aspart Per Unit Charge) 0 units SC ACHS [facility] Stop: 04/25/25 16:29 Last Admin: 03/27/25 18:31 Dose: Not Given Lidocaine (Lidocaine 5% 1 Patch) 1 patch TD QAM [facility] Stop: 04/26/25 08:59 Last Admin: 03/27/25 10:10 Dose: 1 patch Melatonin (Melatonin 3 Mg Tab) 3 mg PO HS PRN PRN Reason: Sleep Stop: 04/25/25 23:00 Last Admin: 03/26/25 23:14 Dose: 3 mg Metoclopramide HCl (Metoclopramide Hcl 5 Mg Tablet) 5 mg PO ACHS [facility] Stop: 04/25/25 16:29 Last Admin: 03/27/25 19:00 Dose: Not Given Miscellaneous (Remove Lidoderm Patch) 1 each N/A DAILY@2100 [facility] Stop: 04/25/25 20:59 Last Admin: 03/26/25 20:42 Dose: 1 each Miscellaneous (Carbohydrates For Hypoglycemia ) 15 - 30 gm PO UD PRN PRN Reason: Hypoglycemia Protocol Stop: 04/25/25 15:09 Miscellaneous Information (Pharmacy Glycemic Mgmt Consult) 1 each N/A UD PRN PRN Reason: Consult Stop: 04/25/25 15:09 Multivitamins (Multivitamin Tab) 1 tab PO QAM [facility] Stop: 04/26/25 08:59 Last Admin: 03/27/25 10:11 Dose: 1 tab Polyethylene Glycol (Polyethylene (Miralax) 17 Gm Pack) 17 gm PO DAILY [facility] Stop: 04/26/25 08:59 Last Admin: 03/27/25 10:21 Dose: Not Given Vitamin D (Cholecalciferol 25 Mcg (1000 Units) Tab) 50 mcg PO QAM [facility] Stop: 04/26/25 08:59 Last Admin: 03/27/25 10:06 Dose: 50 mcg (2) Anemia Anemia type: unspecified type Qualified Code(s): D64.9 - Anemia, unspecified
[2025-03-27] MEDS: GLUCOSE 10 TAB/TUBE PO PRN (17:05)
[2025-03-27] MEDS: GLUCOSE 10 TAB/TUBE PO ONE (19:01)
--- NOTE | 2025-03-28 05:55 | Communication Note ---
Date of Service: March 28, 2025 Patient complained of transient substernal pressure going to the left. No SOB. New dry cough symptoms as per RN. Somewhat different from heart attack as per patient. EKG as per my interpretation rate 95, NSR, normal axis, inferior infarct, no ischemia AP Atypical chest pain History of CAD status post CABG New cough symptoms Check troponin Check CXR Check [employer] respiratory panel PCR
[2025-03-28 06:57] LABS: Hematocrit (blood only) 33.5 % (37.0-47.0); Hemoglobin 10.8 g/dl (12.0-16.0); Mean Corpuscular Hemoglobin 32.0 pg (25.0-34.0); Mean Corpuscular Volume 99.1 fL (80.0-100.0); Platelet Count 414 K/uL (130-400); RDW Standard Deviation 61.8 fL (36.4-46.3); Red Blood Count 3.38 M/uL (4.20-5.40); White Blood Count 5.36 K/ul (4.8-10.8)
[2025-03-28 07:27] LABS: Anion Gap 14.0 (3-11); Blood Urea Nitrogen 82.0 mg/dl (6-23); Calcium 9.4 mg/dl (8.6-10.3); Carbon Dioxide 32.0 mmol/L (21-32); Chloride 91.0 mmol/L (98-107); Creatinine Clr Calc Pharmacy 6.9 ml/min; Glucose 112.0 mg/dl (70-99(Fasting)); Magnesium 2.5 mg/dl (1.7-2.4); Potassium 3.6 mmol/L (3.5-5.1); Sodium 137.0 mmol/L (136-145)
[2025-03-28 07:32] LABS: Partial Thromboplastin Time 27 Seconds (21-31)
--- NOTE | 2025-03-28 08:16 | XRay Report ---
EXAM: XR chest 1V portable CLINICAL HISTORY: Cough. TECHNIQUE: An X-ray image of the chest was obtained in the anteroposterior (AP) projection. COMPARISON: 03/18/2025 CT, 03/17/2025 CR. FINDINGS: Pulmonary Parenchyma: There is interval resolution of haziness in the right lower zone and significant regression of haziness in the left lower zone. No pulmonary nodules are identified. The left costophrenic angle blunting likely represents mild effusion or thickening. There is no evidence of right pleural effusion or pleural thickening. Heart and Mediastinum: The heart size and shape are normal. There is no mediastinal widening or masses. No hilar or mediastinal lymphadenopathy is seen. Bony Thorax: There are median sternotomy wires present. Soft Tissues: The soft tissues overlying the chest wall are unremarkable. IMPRESSION: There is interval resolution of haziness in the right lower zone and significant regression of haziness in the left lower zone. There is unchanged left costophrenic angle blunting, likely representing mild effusion or thickening. There is interval resolution of right costophrenic angle blunting, and it appears clear. Electronically signed by Justin Jones 03-28-2025 08:12 AM
--- NOTE | 2025-03-28 09:05 | Nephrology Progress Note ---
Date of Service March 28, 2025 Assessment & Plan (1) Left chest pressure: Plan: Ddx includes pneumonia, inflammatory process including pericarditis, pleural effusion/volume overload, angina. concern that off of diuretics she is reaccumulating effusions; do note that recent CT had tree in bud findings concerning for inflammatory process; angina a consideration generally and wagner w/ recent tachycardia -consider repeat CT scan chest >> since after diuresis may better visualize L sided process; concern that if fluid is reaccumulating will need to start her on dialysis Limited echocardiogram does not comment on pericardial effusion presence or absence; that said I would imagine a large pericardial effusion would have been noted; note the ECG is unchanged (2) MAGAN (acute kidney injury): Plan: Her baseline creatinine in spring 2024 was 1.0 prior to NSTEMI. However since the NSTEMI and since needing 1 dialysis treatment during her hospitalization in December, creatinine has hovered more in the low to mid fours; it was 4.3 on recent hospital discharge 03/22. Labs 03/26 admission show creatinine 5.8 on high-dose torsemide from discharge last week. Creatinine slightly worse today at 6.0. Potassium 3.6. phos 6.7 >>>extremely advanced renal failure. Even last week her GFR was 10 at hospital discharge. While she does not need emergent dialysis, she does need to start. I spent over 40 minutes today sitting with the patient drawing diagrams explaining chronic kidney disease AV fistula is and why she needs to start dialysis which come down essentially to hyperphosphatemia and volume concerns. No florid uremic symptoms at this time and no indication for urgent start. That said I have concerns that these episodes of chest pressure that she has this admission and the last 1 relate to increasing/poorly tolerated volume overload With no improvement in creatinine, could consider renal imaging if she gets a chest CT particularly - continue to hold diuretics - no urgent indication for dialysis but very close - Daily basic metabolic panel and I added a PTH for the morning again to help evaluate uremia status At this point patient declines to start dialysis tells me she needs time to think about it. I advised her to meet with the vascular surgeon tomorrow and she is willing to do that: I will place a consult for her to be evaluated for tunneled line placement whether is inpatient or outpatient Care coordinated with Dr. Sanabria re continuing to hold diuretic, monitoring renal function, and dialysis plans via [place] text; we are in agreement. (3) Status post myocardial infarction: Plan: tachycardic in 90s frequently past 48 hrs and not on BB currently; s/p November 2024 [place] >> started metoprolol succinate 12.5 mg hs plus one dose now (4) Compression fracture of L1 lumbar vertebra: Plan: Per primary service; continue lumbar brace (5) Anemia: Plan: Markedly improved after recent iron load and 2 doses of ZAK during last admission. Monitor hemoglobin every other day: Was 11.1 today Admission and Anticipated Discharge Date Admission Date: March 26, 2025 Subjective substernal L radiating chest pressure episode overnight and RN noticing new dry cough. Patient thinks it is fibromyalgia related to weather and states pain resolved with taking oxycodone. No edema no nausea vomiting no tremors no confusion nausea further shortness of breath back pain as previous Review of Systems 2 Review of Systems: All systems reviewed & are unremarkable except as noted in Subjective Physical Exam 2 Constitutional: well developed, well nourished, + physical limitations, + frail appearing and cooperative; no acute distress Eyes: EOM intact bilaterally ENMT: Mouth: + dry oral mucous membranes Respiratory: normal respiratory effort Auscultation: + diminished lung sounds (Particularly left) Cardiovascular: RRR, no murmur, no edema Gastrointestinal (Abdomen): Inspection/Auscultation: normal bowel sounds P ercussion/Palpation: abdomen soft; abdomen nontender Musculoskeletal: Extremities: strength 5/5 throughout Skin: no rashes, warm and dry Results & Data Vital Signs (Past 12 Hours) Vital Signs Temp Pulse Resp BP BP Pulse Ox O2 Del Method 03/28/25 07:55 Room Air 03/28/25 07:23 36.5 C 96 H 16 106/67 98 Room Air 03/28/25 05:42 36.4 C L 95 H 18 111/69 93 Room Air 03/27/25 22:30 36.4 C L 84 18 116/68 97 Room Air Laboratory Results 03/28/25 06:32 03/28/25 06:32 Diagnostic Findings CXR this AM (my interpretation after personally reviewing image and comparing to previous CXR) >marked decrease in BL pleural effusions, though L sided effusion persists >persistent vascular fullness/jc B lines CT chest image and TTE report both February personally reviewed (5) Anemia Anemia type: unspecified type Qualified Code(s): D64.9 - Anemia, unspecified
[2025-03-28] MEDS: METOPROLOL SUCC 25MG EXT REL TAB PO ONE (10:06)
[2025-03-28 10:56] LABS: Chlamydia pneumoniae PCR Not Detected (NotDetected); Coronavirus 229E PCR Not Detected (NotDetected); Coronavirus CoV-2 (COVID19)PCR Not Detected (NotDetected); Coronavirus HKU1 PCR Not Detected (NotDetected); Coronavirus NL63 PCR Not Detected (NotDetected); Coronavirus OC43PCR Not Detected (NotDetected); Human Metapneumovirus PCR Not Detected (NotDetected); Parainfluenza Virus 1 PCR Not Detected (NotDetected); Parainfluenza Virus 2 PCR Not Detected (NotDetected); Parainfluenza Virus 3 PCR Not Detected (NotDetected); Parainfluenza Virus 4 PCR Not Detected (NotDetected); Respiratory Syncytial VirusPCR Not Detected (NotDetected); Rhinovirus/Enterovirus PCR Not Detected (NotDetected)
--- NOTE | 2025-03-28 11:36 | Hospitalist Progress Note ---
Date of Service March 28, 2025 Assessment & Plan (1) MAGAN (acute kidney injury): (2) Anemia: (3) Compression fracture of L1 lumbar vertebra: (4) Diabetes mellitus type 2, insulin dependent: (5) CAD, multiple vessel: (6) Depression: Plan 74 year old female from [facility] (currently residing there for rehab) with PMH significant for NSTEMI in November 2024, severe multivessel CAD s/p CABG x 3 [RODNEY to LAD and SVG to OM, PDA] on 12/25/2024 at [facility], uncontrolled DMII [Hgb A1c 12.9% in November 2024], HLD with history of statin intolerance, CKD stage IIIa, and constipation who presented to the ED on 03/26/2025 with worsening renal function detected on outpatient labs. Recent admission from 03/13-03/22/2025 for syncope suspected due to orthostasis. Her diuretics were held in the setting of low BP and syncope and she developed moderate bilateral pleural effusions. Diuresis was restarted which resulted in non-oliguric stage 3 MAGAN. Nephrology was consulted and provided discharge recommendations including torsemide 80mg bid, 1.5L fluid limit, <2g daily sodium diet with plans for repeat labs on 03/26. Her labs today revealed creat of 5.81 which is increased from 4.28 on 03/22/25. Dr Levin (nephrology) noted need for preparation for dialysis as outpatient given 2+ months with eGFR low teens or worse. Has follow up appointment with Dr Hendricks on 04/02 and was getting scheduled to establish care with Dr Han after dialysis modality educations to be evaluated for AV fistula creation and possible PD catheter placement. MAGAN Patient presented with creat 5.81 (increased from 4.28 on 03/22/2025) Likely secondary to diuretics in setting of fluid overload during previous admission Hold torsemide and avoid nephrotoxic agents as able Monitor BMP Consult nephrology to evaluate need for possible hemodialysis Cr now 6 (03/27/2025) Nephrology following and discussed with , contemplating dialysis, for now want to cont. closely monitor 03/28 Creatinine remains 6.0 nephrology service on board possible hemodialysis if without improvement Episode of chest pain History of CAD, CABG December 2024 Troponin x 2: 29, 28 EKG no signs of ischemia or infarct Echocardiogram: Pending continue Plavix Cardiology service consulted Bilateral pleural effusions Detected on CXR and CT chest during previous admission Patient is not SOB or hypoxic and lungs sounds clear 1.5L fluid limit <2g daily sodium diet Strict I&Os Daily weights on standing scale 03/28 Chest x-ray today: There is interval resolution of haziness in the right lower zone and significant regression of haziness in the left lower zone. There is unchanged left costophrenic angle blunting, likely representing mild effusion or thickening. There is interval resolution of right costophrenic angle blunting, and it appears clear. Chronic anemia Hgb stable at 12.1 Received IV iron during previous admission Monitor CBC 03/28 Hemoglobin 11.1, 10.8 Monitor closely Compression fracture of L1 lumbar vertebra Detected on lumbar spine CT during previous admission TLSO brace while ambulating Pain control with scheduled tylenol tid and lidocaine patches daily Continue PT/OT services while inpt Diabetes BSG ACHS and SSI while inpt Depression Continue escitalopram DVT Prophylaxis: SQ Heparin Code Status: FULL CODE PCP:Dr. Janie Pena Admission and Anticipated Discharge Date Admission Date: March 26, 2025 Subjective seen resting in bed, comfortable, not in distress States she had an episode of chest pain earlier this morning, central/left- sided, achy, around 5 out of 10, resolved after few minutes Chest pain recurred during physical therapy, also resolved after a few minutes On my exam, patient is already chest pain-free No shortness of breath, palpitations, dizziness No abdominal pain, nausea or vomiting No other new symptoms Review of Systems Review of Systems: all noted and negative except for above Physical Exam Physical Exam: General- oriented x 3, not in distress, speaks in sentences with no effort or accessory muscle use Eyes- anicteric Neck- no JVD Lungs- clear breath sounds bilaterally, no rales/wheezes Heart- normal rate, regular rhythm; no murmurs Abdomen- normal bowel sounds, nondistended, soft, nontender Extremities- no pretibial edema, no calf tenderness Neuro- alert, oriented x 3; no gross focal neurologic deficits Skin- warm & dry Results & Data Results & Data Vital Signs (Past 12 Hours) Vital Signs Temp Pulse Resp BP Pulse Ox O2 Del Method 03/28/25 07:55 Room Air 03/28/25 07:23 36.5 C 96 H 16 106/67 98 Room Air 03/28/25 05:42 36.4 C L 95 H 18 111/69 93 Room Air all noted and reviewed including below (2) Anemia Anemia type: unspecified type Qualified Code(s): D64.9 - Anemia, unspecified
--- NOTE | 2025-03-28 12:30 | Electrocardiogram Report ---
Test Reason : Blood Pressure : */* mmHG Vent. Rate : 96 BPM Atrial Rate : 96 BPM P-R Int : 142 ms QRS Dur : 80 ms QT Int : 396 ms P-R-T Axes : 55 3 63 degrees QTcB Int : 500 ms Normal sinus rhythm Cannot rule out Inferior infarct , age undetermined Anterior infarct (cited on or before 29-Oct-2021) Abnormal ECG When compared with ECG of 13-Mar-2025 12:30, Nonspecific T wave abnormality no longer evident in Lateral leads Confirmed by Jose Gonzalez ([id number] on 03/28/2025 12:30:08 PM Referred By: REFERRED SELF Confirmed By: Jose Gonzalez
--- NOTE | 2025-03-28 12:34 | Electrocardiogram Report ---
Test Reason : Blood Pressure : */* mmHG Vent. Rate : 92 BPM Atrial Rate : 92 BPM P-R Int : 138 ms QRS Dur : 72 ms QT Int : 396 ms P-R-T Axes : 55 8 91 degrees QTcB Int : 489 ms Normal sinus rhythm Anterior infarct (cited on or before 29-Oct-2021) Abnormal ECG When compared with ECG of 28-Mar-2025 05:32, (unconfirmed) No significant change was found Confirmed by Jose Gonzalez ([id number] on 03/28/2025 12:34:26 PM Referred By: REFERRED SELF Confirmed By: Jose Gonzalez
--- NOTE | 2025-03-28 14:19 | Cardiology Consultation ---
Date of Consultation March 28, 2025 Assessment & Plan (1) Chest discomfort: (2) S/P CABG x 3: (3) MAGAN (acute kidney injury): Plan 74-year-old female with atypical chest discomfort. Pain dissimilar from prior angina/myocardial infarction. Suspect pain is related to left-sided pleural effusion and chronic musculoskeletal discomfort including fibromyalgia. There is no evidence of acute coronary syndrome. Echocardiogram demonstrates preserved LV systolic function with improved wall motion. Recommend continued medical management of cardiovascular disease with aspirin, clopidogrel, and Toprol-XL. Recommend addition of high intensity statin therapy if no contraindication. If patient is statin intolerant, consider addition of PCSK9 inhibitor in the outpatient setting. Dain Carcamo DO, [facility] History of Present Illness Reason for Consultation: Chest pain, history of CAD Requesting Physician: Iban Sanabria MD Attending Physician: Iban Sanabria MD History of Present Illness 74-year-old female admitted from [facility] (currently residing for rehab) with a past medical history of coronary disease, NSTEMI November 2024 status post coronary artery bypass grafting x 3 with RODNEY to LAD, SVG to OM, and SVG to PDA 12/25/[address] [facility]. Admitted in late February due to syncope due to suspected orthostasis. Diuretics were held at that time due to low blood pressure. Subsequently she developed bilateral pleural effusions and due to diuresis was restarted. She presented to the ER 03/26/2025 with oliguria and worsening renal function. This morning patient described cervical pain, left-sided chest discomfort, and lumbar spinal pain. Discomfort lasted several hours. No ischemic ECG changes noted. Troponins remain mildly elevated however flat. Discomfort spontaneously resolved. Patient states she believes pain may have been related to fibromyalgia. Prior W[place] pain included left upper arm pain rating across her chest. This pain was not similar to myocardial infarction. Denies any recent exertional chest discomfort. Preliminary review of bedside echocardiogram demonstrates preserved LV systolic function. Mild concentric left ventricular hypertrophy. Septal motion consistent with a postoperative state. No segmental regional wall motion abnormalities. Mild aortic valve sclerosis without stenosis. Compared to echocardiogram performed 03/14/2025, there is no significant change with mild improvement of apical septal wall motion abnormality. Allergies Allergy/AdvReac Type Severity Reaction Status Date / Time prednisone Allergy Intermediate INJECTED--HIVES, Verified 03/13/25 15:13 ORAL--BLOOD SUGARS 300+ Home Medications Medication Instructions Recorded Confirmed Type cholecalciferol (vitamin D3) 50 50 mcg PO QAM 12/20/24 03/26/25 History mcg (2,000 unit) tablet (Vitamin D3) multivitamin with minerals-folic 1 tab PO QAM 12/20/24 03/26/25 History acid 0.4 mg tablet (One-A-Day Women's 50 Plus) omega 8-nwv-ntc-fish oil 1,000 mg 1 cap PO QAM 12/20/24 03/26/25 History (120 mg-180 mg) capsule (Fish Oil) aspirin 81 mg tablet,delayed 81 mg PO QAM #1 tab 12/21/24 03/26/25 Rx release clopidogrel 75 mg tablet 75 mg PO QAM 03/13/25 03/26/25 History escitalopram oxalate 10 mg tablet 10 mg PO QAM 03/13/25 03/26/25 History famotidine 20 mg tablet 20 mg PO QAM 03/13/25 03/26/25 History insulin aspart U-100 100 unit/mL 1 sliding scale dose subcut 03/13/25 03/26/25 History (3 mL) subcutaneous pen TIDWMEAL insulin glargine 100 unit/mL (3 13 unit subcut HS 03/13/25 03/26/25 History mL) subcutaneous pen (Lantus Solostar U-100 Insulin) lidocaine 5 % topical patch 1 patch transdermal QAM #3 ea 03/22/25 03/26/25 Rx metoclopramide HCl 5 mg tablet 5 mg PO ACHS #30 tabs 03/22/25 03/26/25 Rx torsemide 40 mg tablet 80 mg (2 x 40 mg) PO BID #120 tabs 03/22/25 03/26/25 Rx Patient History Medical History Non-ST elevation WV (NSTEMI) Syncope and collapse Elevated troponin History of orthostatic hypotension Weakness Fracture of lumbar spine Lumbar compression fracture Acute on chronic anemia Electrolyte abnormality Acute retention of urine Cardiac volume overload Statin intolerance Fibromyalgia HLD (hyperlipidemia) T2DM (type 2 diabetes mellitus) Surgical History History of coronary artery bypass graft x 3 No pertinent past surgical history Family History Father Stroke Social History Smoking Status: Former smoker Tobacco Type: Cigarettes Do You Dip or Chew Tobacco: No; Hx Alcohol Use: No Hx Substance Use: No Preferred Language: Macedonian Communication Ability: Effective Operating Table Assembler Required: No Beliefs That Will Affect Care: None Current Living Situation: Alone Feels Safe at Home: Yes Safety Concerns: Feels Safe At This Time Assistive Devices: Cane and Walker Review of Systems Review of Systems: All systems reviewed & are unremarkable except as noted in Subjective (Diffuse musculoskeletal discomfort as described above.) Physical Exam Constitutional: well nourished; no acute distress Respiratory: no respiratory distress and no labored breathing Auscultation: no crackles, no rales, no rhonchi and no wheezes Cardiovascular: Rate/Rhythm: regular rate and regular rhythm Heart Sounds: normal S1 and normal S2; no murmur Vessels: no JVD and no carotid bruit Extremities: no edema Gastrointestinal (Abdomen): Inspection/Auscultation: normal bowel sounds; abdomen not distended Percussion/Palpation: abdomen soft; abdomen nontender, no guarding and abdomen not rigid Neurologic: CN's II-XI intact bilaterally and moves all extremities; no focal motor deficits Results & Data Vital Signs (Past 12 Hours) Vital Signs Temp Pulse Resp BP Pulse Ox O2 Del Method 03/28/25 07:55 Room Air 03/28/25 07:23 36.5 C 96 H 16 106/67 98 Room Air 03/28/25 05:42 36.4 C L 95 H 18 111/69 93 Room Air Laboratory Results Cardiac Enzymes 03/28/25 03/28/25 Range/Units 06:32 09:56 Troponin I High Sens 29.7 H 28.0 H (0-14) pg/ml Coagulation 03/28/25 Range/Units 06:32 APTT 27 (21-31) Seconds CBC 03/28/25 Range/Units 06:32 WBC 5.36 (4.8-10.8) K/ul RBC 3.38 L (4.20-5.40) M/uL Hgb 10.8 L (12.0-16.0) g/dl Hct 33.5 L (37.0-47.0) % Plt Count 414 H (130-400) K/uL Comprehensive Metabolic Panel 03/28/25 Range/Units 06:32 Sodium 137 (136-145) mmol/L Potassium 3.6 (3.5-5.1) mmol/L Chloride 91 L (98-107) mmol/L Carbon Dioxide 32 (21-32) mmol/L BUN 82 H (6-23) mg/dl Creatinine 6.03 H* (0.6-1.2) mg/dl Glucose 112 H (70-99(Fasting)) mg/dl Calcium 9.4 (8.6-10.3) mg/dl Intake and Output 03/28/25 03/28/25 03/28/25 06:59 14:59 22:59 Output Total 350 / 350 151 / 151 Balance -350 / -110 -151 / -151 Output: Urine 350 / 350 150 / 150 # Bowel Movements / Other: # Unmeasured Voids 1 Weight 65.1 kg Weight Measurement Method Built in [facility] PG Care Time/CCT Total # of Minutes Spent Total Time Spent with Patient: Total time spent is greater than 50% in coordination of care (as documented) at patient's floor/unit and/or counseling patient: Coding Level of Care Code 89917 INT INP/OBS CARE 3/75MIN Diagnoses Chest discomfort R07.89 S/P CABG x 3 Z95.1 MAGAN (acute kidney injury) N17.9
--- NOTE | 2025-03-28 14:59 | Pharmacy Report ---
Pharmacy Glycemic Short Note 2 - Date of Service March 28, 2025 - Glycemic Short BSG Results (Last 24 hours): 03/27/25 03/27/25 03/27/25 16:47 16:48 17:10 Glucose POC Glucose 67 L* 69 L* 98 03/27/25 03/27/25 03/28/25 20:06 22:09 06:32 Glucose 112 H POC Glucose 263 H 124 H 03/28/25 03/28/25 07:29 11:26 Glucose POC Glucose 117 H 172 H OUTPATIENT ANTIDIABETIC REGIMEN: * Lantus 13 units SQ qHS * Aspart TID with meals ASSESSMENT: 03/27: * Zena received 6 units of insulin yesterday (all were bolus). BSGs were [id number]/dL. * Fasting BSG was 117mg/dL this morning. Will not add basal insulin at this time. * Parameters of bolus insulin were loosened in ordered to prevent further hypoglycemic episodes. 03/26: * Zena is a 74 yo with complicated PMH including NSTEMI 11/2024, severe multivessel CAD s/p CABG x 3, uncontrolled DMII, hyperlipidemia and CKD stage IIIa who presented to the ED due to worsening renal function. Recent admission 03/13-03/22/2025 for syncope suspected due to orthostasis. * During recent admission, patient required minimal insulin (~4-8 units of Novolog per day). She was initially started on Lantus 5 units BID but this was held after just a few doses due to fasting hypoglycemia. * Will start conservative Novolog CF + CR and withhold basal insulin for now. PLAN FOR INPATIENT GLYCEMIC CONTROL: * Basal insulin * none * Bolus insulin * NovoLog per scale ACHS or Q6hrs while NPO * Goal Range: Low 120 mg/dL - High 160 mg/dL * Correction Factor: 40 mg/dL/unit * Nutritional / Prandial insulin per carb ratio of 1 unit per 30 grams CHO consumed
[2025-03-28] MEDS: METOPROLOL SUCC 25MG EXT REL TAB PO SCH (20:57)
[2025-03-29] MEDS: INSULIN ASPART PER UNIT CHARGE SC SCH ×2 (08:23→12:46)
[2025-03-29 09:39] LABS: Hemoglobin A1C 5.4 % (4.5-5.6)
--- NOTE | 2025-03-29 10:13 | Nephrology Progress Note ---
Date of Service March 29, 2025 Assessment & Plan (1) Left chest pressure: Plan: Occurred March 28 early a.m.; had similar episode during her last admission. Has not recurred since. Ddx includes pneumonia, inflammatory process including pericarditis, pleural effusion/volume overload, angina. concern that off of diuretics she is reaccumulating effusions; do note that recent CT had tree in bud findings concerning for inflammatory process; angina a consideration generally and wagner w/ recent tachycardia. pt believes this was worsening fibromyalgia related to the weather -consider repeat CT scan chest >> since after diuresis may better visualize L sided process; concern that if fluid is reaccumulating makes a stronger case for diuretics or/and dialysis Limited echocardiogram does not comment on pericardial effusion presence or absence; that said I would imagine a large (potentially uremic) pericardial effusion would have been noted; note the ECG is unchanged /no evidence of pericarditis (2) MAGAN (acute kidney injury): Plan: Improvement today in creatinine from 6.0-5.6; however this amounts to about one half of a milliliter per minute per cake with creatinine in this range. Remains with advanced severe renal failure likely ESRD. Needs to start dialysis due to issues with volume overload, sustained impaired GFR 10 and under for greater than 2 months, hyperphosphatemia. Her baseline creatinine in spring 2024 was 1.0 prior to NSTEMI. However since the NSTEMI and since needing 1 dialysis treatment during her hospitalization in December, creatinine has hovered more in the low to mid fours for a GFR of about 10 mL/min; it was 4.3 on recent hospital discharge 03/22. Labs 03/26 admission show creatinine 5.8 on high-dose torsemide from discharge last week. today's labs are pending. Yesterday creatinine was plateaued at its highest value to date since just after heart surgery at 6.0 for a GFR of about 7 mL/min. Potassium 3.6. phos 6.7 >>>extremely advanced renal failure. Even last week her GFR was 10 at hospital discharge. While she does not need emergent dialysis, she does need to start. No florid uremic symptoms at this time and no indication for emergent start. That said I have concerns that these episodes of chest pressure that she has this admission and the last 1 relate to increasing/poorly tolerated volume overload; also with elevated phosphorus and other markers consistent with renal failure. could consider renal imaging if she gets a chest CT particularly - will resume diuretics today since she plans not to start dialysis at this time - >>>follow-up pending labs (PTH) and Vascular Surgery recommendations - no urgent indication for dialysis but very close - Daily basic metabolic panel and I added a PTH for the morning again to help evaluate uremia status Since she is declining dialysis reasonable at this point to discharge back to rehab with close outpatient follow-up including with vascular surgery and nephrology. Fearful of doing dialysis at home due to infection concerns and 5 pound weight limit for lifting. My impression with her diabetes and heart disease and lower blood pressures is that she will do better on slower gentler therapies like home therapies rather than in center HD. >Patient has been in dialogue with vascular though has not yet met the surgeon as of this note; vascular input appreciated : Willing to consider an AV fistula but adamant she will have nothing in her neck. Will ask surgeon to consider PD catheter placement as well >Patient needs kidney smart dialysis modality education which is not currently scheduled >> educator will contact her by cell phone on 04/01 or 04/02 to arrange >will sign off but pls contact neph environmental permitting specialist if CT is done as it may affect d/c recs including for diuretics >> NEPH D/C RECS DX >severe/unremitting MAGAN/ESRD w/ uremic findings of volume OL, hyperphosphatemia, recurrent chest pains x 2 >DM >recent CABG/PR >lumbar fracture compression w/ 5 lb lifting limit RX -torsemide 60 mg MWF and potassium 10 mEq same days -metoprolol succinate 12.5 mg hs and monitor for opportunity to increase to twice daily OTHER CARE -FR 1.5L -renal diet -weekly bmp, phos, hgb at rehab -pls have rehab obtain UACM, ACR, PTH, 25OHD to be done day before [facility] appt F/U APPTS -Kidney Smart/modality education > educator to contact pt next week to schedule -f/u w/ Dr Hendricks w/ CKD clinic appt next week as previously scheduled in [facility] -f/u w/ Dr Simon in vascular clinic regarding dialysis access Care coordinated with Dr. Sanabria re resuming diuretic, monitoring renal function, and dialysis education/access plans via [place] text; care coordinated with vascular surgery team regarding post clinically appropriate dialysis modality and plans for dialysis access also via [place] text; we are in agreement. (3) Status post myocardial infarction: Plan: tachycardic in 90s frequently 03/26-03/28 and not on BB currently; s/p November 2024 PR >> continue metoprolol succinate 12.5 mg hs started 03/27; appears to be tolerating; consider bid dosing given relative hypotension and HR (4) Compression fracture of L1 lumbar vertebra: Plan: Per primary service; continue lumbar brace (5) Anemia: Plan: Markedly improved after recent iron load and 2 doses of ZAK during last admission. Monitor hemoglobin every other day: 10.9 today > no further intervention needed at this time Admission and Anticipated Discharge Date Admission Date: March 26, 2025 Subjective no interval clinical events; vasc surg eval pending; patient already did physical therapy today and moved better and did more steps without exertional dyspnea. Denies lower extremity edema. Denies nausea vomiting. Education regarding dialysis modalities underway. No recurrent chest pain Review of Systems 2 Review of Systems: All systems reviewed & are unremarkable except as noted in Subjective Physical Exam 2 Constitutional: well developed, well nourished, + physical limitations, + frail appearing and cooperative; no acute distress Eyes: EOM intact bilaterally ENMT: Mouth: + dry oral mucous membranes Respiratory: normal respiratory effort Auscultation: + diminished lung sounds Cardiovascular: RRR, no murmur, no edema Gastrointestinal (Abdomen): Inspection/Auscultation: normal bowel sounds P ercussion/Palpation: abdomen soft; abdomen nontender Musculoskeletal: Extremities: strength 5/5 throughout Skin: no rashes, warm and dry Results & Data Vital Signs (Past 12 Hours) Vital Signs Temp Pulse Resp BP Pulse Ox O2 Del Method 03/29/25 07:21 36.7 C 87 16 119/75 98 Room Air Laboratory Results 03/29/25 08:33 03/29/25 08:33 (5) Anemia Anemia type: unspecified type Qualified Code(s): D64.9 - Anemia, unspecified
--- NOTE | 2025-03-29 10:14 | Vascular Surgery Consultation ---
Date of Consultation March 29, 2025 Assessment & Plan (1) CKD (chronic kidney disease): -currently no uremic symptoms, however does have elevated phosphate and concerns regarding ability to tolerate any volume overload with balancing diuretics and worsening renal function, with concerns for needing to start HD soon. -Had long discussion with her regarding dialysis access options. She does not wish to have any catheter placed in her neck, due to pain and discomfort she experienced at OSH. She also does not wish to have a PD catheter. We discussed fistula creation, which she is willing to have done, however we also discussed that this will take a minimum of 6-8 weeks to mature and possibly longer, which then would necessitate need for catheter, should dialysis be needed prior to the point of fistula maturation. I urged her to discuss further with her gifts officer timing of needing HD. -As she would like to see her outpatient gifts officer before making decision, we would be happy to have her follow up with us to plan for HD access placement (TDC and/or fistula) in the office, unless she already has appointment scheduled with Dr. Han. -She will need upper extremity mapping for fistula planning, which we can order and have done at time of her visit. -Discussed case with Dr. Simon Chronic kidney disease stage: unspecified stage Qualified Code(s): N18.9 - Chronic kidney disease, unspecified History of Present Illness Reason for Consultation: CKD, evaluate for dialysis access Attending Physician: Iban Sanabria MD History of Present Illness Ms. Rubio is a 74 yo female with PMHx significant for multivessel CAD with NSTEMI s/p CABG 12/25/24 in [place], uncontrolled DM, hyperlipidemia, recent worsening of her known CKD stage IIIa, who presented to ED with worsening renal function on follow up outpatient lab work. Of note, prior to her NSTEMI, her Cr baseline was 1.0, however since NSTEMI and CABG (hospitalization complicated by MAGAN/ATN and need for 1 session CRRT), her Cr baseline has worsened. The past several months have been balancing fluid overload (bilateral pleural effusions) with diuretics and her declining kidney function. Most recently she was in the hospital at the end of February after suffering syncope suspected due to orthostasis in setting of diuretics, with Cr noted at that time to be 4.28. She was seen by nephrology and recommendations were made regarding her torsemide as well as fluid restrictions and sodium restrictions, with plan for repeat labs on 03/26. Most recent outpatient labwork showed cr of 5.8, while on torsemide, and baseline has been increasing in the hospital, despite discontinuing diuretics, with Cr noted to be 6.03 yesterday, improved to 5.55 today. Potassium 4.1 today. She has never seen a vascular surgeon to discuss dialysis access, however this had been mentioned to her as an outpatient and she was in the process of being set up to for consultation with Dr. Han. She discusses with me that she does not wish to have a catheter in her neck because of her experience with one in [place]. She currently denies any shortness of breath, chest pain or pressure, new back pain (has compression fracture due to fall last month), itching, loss of appetite, loss of taste, extremity swelling, nausea, vomiting. I walked with her during her PT session and she was able to make several trips around the hallways and up stairs without much shortness of breath and she states she is feeling strong. She is right handed. She had a dialysis catheter in her neck 3 months ago for CRRT, but denies any other catheters in her neck. She denies any pacemakers or port placements. She has no issues with her hands other than tips of fingers feeling numb from her blood glucose sticks. Allergies Allergy/AdvReac Type Severity Reaction Status Date / Time prednisone Allergy Intermediate INJECTED--HIVES, Verified 03/13/25 15:13 ORAL--BLOOD SUGARS 300+ Home Medications Medication Instructions Recorded Confirmed Type cholecalciferol (vitamin D3) 50 50 mcg PO QAM 12/20/24 03/26/25 History mcg (2,000 unit) tablet (Vitamin D3) multivitamin with minerals-folic 1 tab PO QAM 12/20/24 03/26/25 History acid 0.4 mg tablet (One-A-Day Women's 50 Plus) omega 3-doy-chq-fish oil 1,000 mg 1 cap PO QAM 12/20/24 03/26/25 History (120 mg-180 mg) capsule (Fish Oil) aspirin 81 mg tablet,delayed 81 mg PO QAM #1 tab 12/21/24 03/26/25 Rx release clopidogrel 75 mg tablet 75 mg PO QAM 03/13/25 03/26/25 History escitalopram oxalate 10 mg tablet 10 mg PO QAM 03/13/25 03/26/25 History famotidine 20 mg tablet 20 mg PO QAM 03/13/25 03/26/25 History insulin aspart U-100 100 unit/mL 1 sliding scale dose subcut 03/13/25 03/26/25 History (3 mL) subcutaneous pen TIDWMEAL insulin glargine 100 unit/mL (3 13 unit subcut HS 03/13/25 03/26/25 History mL) subcutaneous pen (Lantus Solostar U-100 Insulin) lidocaine 5 % topical patch 1 patch transdermal QAM #3 ea 03/22/25 03/26/25 Rx metoclopramide HCl 5 mg tablet 5 mg PO ACHS #30 tabs 03/22/25 03/26/25 Rx torsemide 40 mg tablet 80 mg (2 x 40 mg) PO BID #120 tabs 03/22/25 03/26/25 Rx Patient History Medical History Non-ST elevation [place] (NSTEMI) Syncope and collapse Elevated troponin History of orthostatic hypotension Weakness Fracture of lumbar spine Lumbar compression fracture Acute on chronic anemia Electrolyte abnormality Acute retention of urine Cardiac volume overload Statin intolerance Fibromyalgia HLD (hyperlipidemia) T2DM (type 2 diabetes mellitus) Surgical History History of coronary artery bypass graft x 3 No pertinent past surgical history Family History Father Stroke Social History Smoking Status: Former smoker Tobacco Type: Cigarettes Do You Dip or Chew Tobacco: No; Hx Alcohol Use: No Hx Substance Use: No Preferred Language: Kyrgyz Communication Ability: Effective [employer] 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 Beliefs That Will Affect Care: None Current Living Situation: Alone Feels Safe at Home: Yes Safety Concerns: Feels Safe At This Time Assistive Devices: Cane and Walker Review of Systems Constitutional: denies fevers, chills, fatigue Respiratory: see HPI, also denies coughing, wheezing Cardiovascular: Additional Comments: see HPI, also denies palpitations Gastrointestinal: denies nausea, vomiting, abdominal pain, diarrhea, constipation Genitourinary: makes urine, denies hematuria Musculoskeletal: positive for back pain Neurologic: denies dizziness, headache, paresthesias Hematologic / Lymphatic: denies easy bleeding/bruising. Physical Exam Constitutional: pleasant, WDWN, walking in hallways with walker with PT Neck: supple, trachea midline Respiratory: no accessory muscle use or retractions noted. CTAB Cardiovascular: RRR, no murmurs noted. Radial pulses +2 bilaterally Fredis test performed, positive bilaterally. Musculoskeletal: no edema in upper extremities no obvious scars in upper extremities Walking in hallways with walker, gait is stable Neurologic: AA&O x 3, CN II-XII grossly intact Results & Data Vital Signs (Past 12 Hours) Vital Signs Temp Pulse Resp BP Pulse Ox O2 Del Method 03/29/25 07:21 36.7 C 87 16 119/75 98 Room Air Laboratory Results 03/29/25 03/29/25 03/29/25 08:33 08:29 07:37 WBC 5.66 RBC 3.44 L Hgb 10.9 L Hct 34.6 L MCV 100.6 H MCH 31.7 MCHC 31.5 L RDW Std Deviation 60.8 H RDW Coeff of Zeina 16.4 H Plt Count 419 H MPV 10.0 Immature Gran % (Auto) 0.4 Neut % (Auto) 45.8 Lymph % (Auto) 30.4 Ralls % (Auto) 14.7 Eos % (Auto) 7.8 Baso % (Auto) 0.9 Neut # (Auto) 2.60 Lymph # (Auto) 1.72 Ralls # (Auto) 0.83 H Eos # (Auto) 0.44 Baso # (Auto) 0.05 Immature Gran # (Auto) 0.02 Sodium 135 L Potassium 4.1 Chloride 92 L Carbon Dioxide 30 Anion Gap 13 H BUN 79 H Creatinine 5.55 H* D Est Cr Clr Drug Dosing 7.4 eGFR 7.47 BUN/Creatinine Ratio 14.2 Glucose 162 H POC Glucose 115 H Estimat Average Glucose 108 Hemoglobin A1c 5.4 Calcium 9.3 Phosphorus 6.2 H Magnesium 2.6 H Adenovirus (PCR) B. pertussis DNA (PCR) B.parapertussis DNA PCR C. pneumoniae DNA (PCR) Coronavirus OC43 (PCR) Coronavirus HKU1 (PCR) Coronavirus 229E (PCR) SARS-CoV-2 (PCR) Coronavirus NL63 (PCR) Human Metapneumovir PCR Influenza Type A (PCR) Influenza Type B (PCR) M. pneumoniae (PCR) Parainfluenza 1 (PCR) Parainfluenza 2 (PCR) Parainfluenza 3 (PCR) Parainfluenza 4 (PCR) RSV (PCR) Entero/Rhino (PCR) 03/28/25 03/28/25 03/28/25 Unknown 21:15 16:21 WBC RBC Hgb Hct MCV MCH MCHC RDW Std Deviation RDW Coeff of Zeina Plt Count MPV Immature Gran % (Auto) Neut % (Auto) Lymph % (Auto) Ralls % (Auto) Eos % (Auto) Baso % (Auto) Neut # (Auto) Lymph # (Auto) [place] # (Auto) Eos # (Auto) Baso # (Auto) Immature Gran # (Auto) Sodium Potassium Chloride Carbon Dioxide Anion Gap BUN Creatinine Est Cr Clr Drug Dosing eGFR BUN/Creatinine Ratio Glucose POC Glucose 164 H 116 H Estimat Average Glucose Hemoglobin A1c Calcium Phosphorus Magnesium Adenovirus (PCR) Not Detected B. pertussis DNA (PCR) Not Detected B.parapertussis DNA PCR Not Detected C. pneumoniae DNA (PCR) Not Detected Coronavirus OC43 (PCR) Not Detected Coronavirus HKU1 (PCR) Not Detected Coronavirus 229E (PCR) Not Detected SARS-CoV-2 (PCR) Not Detected Coronavirus NL63 (PCR) Not Detected Human Metapneumovir PCR Not Detected Influenza Type A (PCR) Not Detected Influenza Type B (PCR) Not Detected M. pneumoniae (PCR) Not Detected Parainfluenza 1 (PCR) Not Detected Parainfluenza 2 (PCR) Not Detected Parainfluenza 3 (PCR) Not Detected Parainfluenza 4 (PCR) Not Detected RSV (PCR) Not Detected Entero/Rhino (PCR) Not Detected 03/28/25 11:26 WBC RBC Hgb Hct MCV MCH MCHC RDW Std Deviation RDW Coeff of Zeina Plt Count MPV Immature Gran % (Auto) Neut % (Auto) Lymph % (Auto) Ralls % (Auto) Eos % (Auto) Baso % (Auto) Neut # (Auto) Lymph # (Auto) [place] # (Auto) Eos # (Auto) Baso # (Auto) Immature Gran # (Auto) Sodium Potassium Chloride Carbon Dioxide Anion Gap BUN Creatinine Est Cr Clr Drug Dosing eGFR BUN/Creatinine Ratio Glucose POC Glucose 172 H Estimat Average Glucose Hemoglobin A1c Calcium Phosphorus Magnesium Adenovirus (PCR) B. pertussis DNA (PCR) B.parapertussis DNA PCR C. pneumoniae DNA (PCR) Coronavirus OC43 (PCR) Coronavirus HKU1 (PCR) Coronavirus 229E (PCR) SARS-CoV-2 (PCR) Coronavirus NL63 (PCR) Human Metapneumovir PCR Influenza Type A (PCR) Influenza Type B (PCR) M. pneumoniae (PCR) Parainfluenza 1 (PCR) Parainfluenza 2 (PCR) Parainfluenza 3 (PCR) Parainfluenza 4 (PCR) RSV (PCR) Entero/Rhino (PCR) Diagnostic Findings CXR 03/28/25: IMPRESSION: There is interval resolution of haziness in the right lower zone and significant regression of haziness in the left lower zone. There is unchanged left costophrenic angle blunting, likely representing mild effusion or thickening. There is interval resolution of right costophrenic angle blunting, and it appears clear. Medications Administered Home Medications Medication Instructions Recorded Confirmed Last Taken cholecalciferol (vitamin D3) 50 50 mcg PO QAM 12/20/24 03/26/25 03/26/25 mcg (2,000 unit) tablet (Vitamin D3) multivitamin with minerals-folic 1 tab PO QAM 12/20/24 03/26/25 03/26/25 acid 0.4 mg tablet (One-A-Day Women's 50 Plus) omega 3-yfj-crh-fish oil 1,000 mg 1 cap PO QAM 12/20/24 03/26/25 03/26/25 (120 mg-180 mg) capsule (Fish Oil) aspirin 81 mg tablet,delayed 81 mg PO QAM #1 tab 12/21/24 03/26/25 03/26/25 release clopidogrel 75 mg tablet 75 mg PO QAM 03/13/25 03/26/25 03/26/25 escitalopram oxalate 10 mg tablet 10 mg PO QAM 03/13/25 03/26/25 03/26/25 famotidine 20 mg tablet 20 mg PO QAM 03/13/25 03/26/25 03/26/25 insulin aspart U-100 100 unit/mL 1 sliding scale dose subcut 03/13/25 03/26/25 03/26/25 (3 mL) subcutaneous pen TIDWMEAL insulin glargine 100 unit/mL (3 13 unit subcut HS 03/13/25 03/26/25 03/25/25 mL) subcutaneous pen (Lantus Solostar U-100 Insulin) lidocaine 5 % topical patch 1 patch transdermal QAM #3 ea 03/22/25 03/26/25 03/26/25 metoclopramide HCl 5 mg tablet 5 mg PO ACHS #30 tabs 03/22/25 03/26/25 03/26/25 torsemide 40 mg tablet 80 mg (2 x 40 mg) PO BID #120 tabs 03/22/25 03/26/25 03/26/25 Active Medications Generic Name Dose Route Start Last Admin Trade Name Freq PRN Reason Stop Dose Admin Acetaminophen 1,000 mg 03/26/25 21:00 03/29/25 09:20 Acetaminophen 500 Mg Tab PO 04/25/25 20:59 1,000 mg TID FAISAL Administration Aspirin 81 mg 03/27/25 09:00 03/29/25 08:09 Aspirin 81 Mg Ectab PO 04/26/25 08:59 81 mg QAM FAISAL Administration Clopidogrel Bisulfate 75 mg 03/27/25 09:00 03/29/25 08:09 Clopidogrel Bisulfate 75 Mg Tab PO 04/26/25 08:59 75 mg QAM FAISAL Administration Escitalopram Oxalate 10 mg 03/27/25 09:00 03/29/25 08:10 Escitalopram Oxalate 10 Mg Tab PO 04/26/25 08:59 10 mg QAM FAISAL Administration Famotidine 20 mg 03/27/25 09:00 03/29/25 08:22 Famotidine 20 Mg Tab PO 04/26/25 08:59 20 mg QAM FAISAL Administration Glucose 4 - 8 tab 03/26/25 15:10 03/27/25 17:05 Glucose 10 Tab/Tube PO 04/25/25 15:09 4 tab UD PRN Administration Hypoglycemia Protocol Protocol Heparin Sodium (Porcine) 5,000 units 03/26/25 21:00 03/29/25 09:23 Heparin Sod 5,000 Unit/0.5 Ml Vial SQ 04/25/25 20:59 5,000 units Q12 FAISAL Administration Insulin Aspart 0 units 03/29/25 08:00 03/29/25 08:23 Insulin Aspart Per Unit Charge SC 04/28/25 07:59 2 units 0730 FAISAL Administration Lidocaine 1 patch 03/27/25 09:00 03/29/25 08:11 Lidocaine 5% 1 Patch TD 04/26/25 08:59 1 patch QAM FAISAL Administration Melatonin 3 mg 03/26/25 23:01 03/26/25 23:14 Melatonin 3 Mg Tab PO 04/25/25 23:00 3 mg HS PRN Administration Sleep Metoclopramide HCl 5 mg 03/26/25 16:30 03/27/25 19:00 Metoclopramide Hcl 5 Mg Tablet PO 04/25/25 16:29 Not Given ACHS FAISAL Metoprolol Succinate 12.5 mg 03/28/25 21:00 03/28/25 20:57 Metoprolol Succ 25mg Ext Rel Tab PO 04/27/25 20:59 Not Given HS FAISAL Miscellaneous 1 each 03/26/25 21:00 03/28/25 21:29 Remove Lidoderm Patch N/A 04/25/25 20:59 1 each DAILY@2100 FAISAL Administration Multivitamins 1 tab 03/27/25 09:00 03/29/25 08:09 Multivitamin Tab PO 04/26/25 08:59 1 tab QAM FAISAL Administration Oxycodone HCl 2.5 mg 03/28/25 16:31 03/28/25 16:50 Oxycodone Hcl Ir 5 Mg Tab (Immediate Release) PO 04/11/25 16:44 2.5 mg Q12H PRN Administration severe pain Polyethylene Glycol 17 gm 03/27/25 09:00 03/29/25 08:11 Polyethylene (Miralax) 17 Gm Pack PO 04/26/25 08:59 Not Given DAILY FAISAL Vitamin D 50 mcg 03/27/25 09:00 03/29/25 08:10 Cholecalciferol 25 Mcg (1000 Units) Tab PO 04/26/25 08:59 50 mcg QAM FAISAL Administration PG Care Time/CCT Total # of Minutes Spent Total Time Spent with Patient: Total time spent is greater than 50% in coordination of care (as documented) at patient's floor/unit and/or counseling patient: [place] [address] INT INP/OBS CARE 2/55MIN Patient Type New History Detailed Exam Detailed Medical Decision Making Moderate Complexity Diagnoses CKD (chronic kidney disease) N18.9 Chronic kidney disease stage: unspecified stage
[2025-03-29 10:25] LABS: Hematocrit (blood only) 34.6 % (37.0-47.0); Hemoglobin 10.9 g/dl (12.0-16.0); Immature Granulocytes # (auto) 0.02 K/uL (0.01-0.20); Immature Granulocytes % (auto) 0.4 %; Mean Corpuscular Hemoglobin 31.7 pg (25.0-34.0); Mean Corpuscular Volume 100.6 fL (80.0-100.0); Platelet Count 419 K/uL (130-400); RDW Standard Deviation 60.8 fL (36.4-46.3); Red Blood Count 3.44 M/uL (4.20-5.40); White Blood Count 5.66 K/ul (4.8-10.8)
[2025-03-29 10:35] LABS: Anion Gap 13.0 (3-11); Blood Urea Nitrogen 79.0 mg/dl (6-23); Calcium 9.3 mg/dl (8.6-10.3); Carbon Dioxide 30.0 mmol/L (21-32); Chloride 92.0 mmol/L (98-107); Creatinine Clr Calc Pharmacy 7.4 ml/min; Glucose 162.0 mg/dl (70-99(Fasting)); Magnesium 2.6 mg/dl (1.7-2.4); Potassium 4.1 mmol/L (3.5-5.1); Sodium 135.0 mmol/L (136-145)
--- NOTE | 2025-03-29 12:16 | Cardiology Progress Note ---
Date of Service March 29, 2025 Assessment & Plan (1) Chest discomfort: (2) S/P CABG x 3: (3) MAGAN (acute kidney injury): Plan 74-year-old female with atypical chest discomfort. Pain dissimilar from prior angina/myocardial infarction. Pain-free today. Suspect pain is related to left-sided pleural effusion and chronic musculoskeletal discomfort including fibromyalgia. There is no evidence of acute coronary syndrome. Echocardiogram demonstrates preserved LV systolic function with improved wall motion. Recommend continued medical management of cardiovascular disease with aspirin, clopidogrel, and Toprol-XL. Recommend addition of high intensity statin therapy if no contraindication. If patient is statin intolerant, consider addition of PCSK9 inhibitor in the outpatient setting. No further inpatient cardiac testing recommended at this time. Outpatient cardi ology follow-up as scheduled. Cardiology will sign off. Please call with any additional concerns/questions. Dain Carcamo DO, [facility] Admission and Anticipated Discharge Date Admission Date: March 26, 2025 Subjective 74-year-old female seen examined at bedside. Feeling better today. No recurrent chest discomfort. Denies orthopnea, PND, lower extremity edema. Low back pain unchanged. Offers no new concerns/complaints. Review of Systems Review of Systems: All systems reviewed & are unremarkable except as noted in Subjective Physical Exam Constitutional: well nourished; no acute distress Respiratory: no respiratory distress and no labored breathing Auscultation: no crackles, no rales, no rhonchi and no wheezes Cardiovascular: Rate/Rhythm: regular rate and regular rhythm Heart Sounds: normal S1 and normal S2; no murmur Vessels: no JVD and no carotid bruit Extremities: no edema Gastrointestinal (Abdomen): Inspection/Auscultation: normal bowel sounds; abdomen not distended Percussion/Palpation: abdomen soft; abdomen nontender, no guarding and abdomen not rigid Neurologic: CN's II-XI intact bilaterally and moves all extremities; no focal motor deficits Results & Data Vital Signs (Past 12 Hours) Vital Signs Temp Pulse Resp BP Pulse Ox O2 Del Method 03/29/25 07:21 36.7 C 87 16 119/75 98 Room Air Laboratory Results CBC 03/29/25 Range/Units 08:33 WBC 5.66 (4.8-10.8) K/ul RBC 3.44 L (4.20-5.40) M/uL Hgb 10.9 L (12.0-16.0) g/dl Hct 34.6 L (37.0-47.0) % Plt Count 419 H (130-400) K/uL Neut # (Auto) 2.60 (1.40-6.50) K/uL Lymph # (Auto) 1.72 (1.20-3.40) K/uL [place] # (Auto) 0.83 H (0.11-0.59) K/uL Eos # (Auto) 0.44 (0.00-0.50) K/uL Baso # (Auto) 0.05 (0.00-0.20) K/uL Comprehensive Metabolic Panel 03/29/25 Range/Units 08:33 Sodium 135 L (136-145) mmol/L Potassium 4.1 (3.5-5.1) mmol/L Chloride 92 L (98-107) mmol/L Carbon Dioxide 30 (21-32) mmol/L BUN 79 H (6-23) mg/dl Creatinine 5.55 H* D (0.6-1.2) mg/dl Glucose 162 H (70-99(Fasting)) mg/dl Calcium 9.3 (8.6-10.3) mg/dl Intake and Output 03/28/25 03/29/25 03/29/25 22:59 06:59 14:59 Intake Total 140 / 140 400 / 400 Balance 140 / -11 400 / 400 Intake: Oral 140 / 140 400 / 400 Other: # Unmeasured Voids 1 1 1 Weight 65.9 kg Patient Weight 03/30/25 06:59 Weight 65.9 kg PG Care Time/CCT Total # of Minutes Spent Total Time Spent with Patient: Total time spent is greater than 50% in coordination of care (as documented) at patient's floor/unit and/or counseling patient: Coding Level of Care Code 42361 SUB INP/OBS CARE 3/50MIN Diagnoses Chest discomfort R07.89 S/P CABG x 3 Z95.1 MAGAN (acute kidney injury) N17.9
[2025-03-29] MEDS: POTASSIUM CHLORIDE 10 MEQ TABCR PO SCH (12:50)
[2025-03-29] MEDS: TORSEMIDE 20 MG TAB PO SCH (12:50)
--- NOTE | 2025-03-29 13:01 | Pharmacy Report ---
Pharmacy Glycemic Short Note 2 - Date of Service March 29, 2025 - Glycemic Short BSG Results (Last 24 hours): 03/28/25 03/28/25 03/29/25 16:21 21:15 07:37 Glucose POC Glucose 116 H 164 H 115 H 03/29/25 03/29/25 08:33 11:30 Glucose 162 H POC Glucose 158 H OUTPATIENT ANTIDIABETIC REGIMEN: * Lantus 13 units SQ qHS * Aspart TID with meals ASSESSMENT: 03/29: * Zena received 6 units of insulin again yesterday (all were bolus). Blood glucose was slightly improved from the day prior * Fasting BSG was 115mg/dL this morning. Will trial tightening breakfast bolus insulin parameters and then loosening the rest of the day, as lunch reading have been above goal and dinner reading has been below goal. * Will not add basal insulin at this time 03/28: * Zena received 6 units of insulin yesterday (all were bolus). BSGs were [id number]/dL. * Fasting BSG was 117mg/dL this morning. Will not add basal insulin at this time. * Parameters of bolus insulin were loosened in ordered to prevent further hypoglycemic episodes. 03/26: * Zena is a 74 yo with complicated PMH including NSTEMI 11/2024, severe multivessel CAD s/p CABG x 3, uncontrolled DMII, hyperlipidemia and CKD stage IIIa who presented to the ED due to worsening renal function. Recent admission 03/13-03/22/2025 for syncope suspected due to orthostasis. * During recent admission, patient required minimal insulin (~4-8 units of Nov olog per day). She was initially started on Lantus 5 units BID but this was held after just a few doses due to fasting hypoglycemia. * Will start conservative Novolog CF + CR and withhold basal insulin for now. PLAN FOR INPATIENT GLYCEMIC CONTROL: * Basal insulin * none * Bolus insulin * NovoLog per scale ACHS or Q6hrs while NPO * Goal Range: Low 120 mg/dL - High 160 mg/dL * Breakfast -Correction Factor: 30 mg/dL/unit -Nutritional / Prandial insulin per carb ratio of 1 unit per 15 grams CHO consumed * Lunch, supper, HS -Correction Factor: 40 mg/dL/unit -Nutritional / Prandial insulin per carb ratio of 1 unit per 30 grams CHO consumed
--- NOTE | 2025-03-29 13:31 | CT Scan Report ---
CT SCAN OF THE ABDOMEN AND PELVIS WITHOUT IV CONTRAST CLINICAL HISTORY: Acute renal insufficiency COMPARISON STUDY: Abdominal CT dated 10/31/2021 TECHNIQUE: CT scan of the abdomen and pelvis is performed from the lung bases to the proximal femora. Images are reviewed in the axial, sagittal, and coronal planes. IV contrast was not administered for this examination. A dose lowering technique was utilized adhering to the principles of ALARA. CT DOSE: 498.82 mGy.cm FINDINGS: Lung bases: The patient is status post midline sternotomy. The heart is top normal in size and withou t pericardial effusion. There is trace left pleural effusion with dependent atelectasis. A tiny hiata l hernia is noted. Liver: The unenhanced liver is normal in size, contour, and attenuation. There is no intrahepatic bogdan iary ductal dilatation. There is a 2.6 cm left lobe cyst. Gallbladder: There are layering calcified gallstones with no CT evidence of acute cholecystitis. Spleen: Normal in size and attenuation. Pancreas: Unremarkable. Adrenal glands: Unremarkable. Kidneys: The unenhanced kidneys are normal in size and without hydronephrosis. No renal calculi are i dentified and no ureteral stone is seen. A 1 cm cortical cyst is again seen on the left. Renal sinus cysts are noted on the left. Abdominal vasculature: The abdominal aorta is normal in course and caliber noting moderate to advance d atherosclerotic calcification. Bowel: There is mild to moderate colonic fecal retention. No bowel obstruction is identified. There i s mild colonic diverticulosis without CT evidence of acute diverticulitis. The appendix is well-visu alized and normal. Peritoneum: There is no intraperitoneal free air or abdominal ascites. Lymphadenopathy: None. Pelvic viscera: The bladder wall appears thickened and there are foci of intraluminal gas. There are calcified uterine fibroids. No adnexal lesion is seen. Skeletal structures: The skeletal structures are osteopenic. There is mild to moderate lumbosacral sp ondylosis. No lytic or blastic lesions are seen. A subacute compression fracture of L1 is again noted . IMPRESSION: 1. The bladder wall is mildly thickened and there are foci of gas within the bladder lumen. This may be related to recent instrumentation. Correlate with clinical findings and urinalysis. 2. The kidneys are normal in size and without hydronephrosis. 3. Trace left pleural effusion. 4. Cholelithiasis. 5. Additional findings as above. ACT 112: Negative or not required by law. Electronically signed by: David Haley M.D. 03/29/2025 1:29 PM
--- NOTE | 2025-03-29 14:38 | CT Scan Report ---
CT chest diagnostic wo con CT DOSE: CLINICAL HISTORY: r/o pleural effusion. TECHNIQUE: Multiaxial CT images of the chest were performed without contrast. A dose lowering techni que was utilized adhering to the principles of ALARA. COMPARISON STUDY: 03/18/2025 FINDINGS: The pleural effusions have resolved with only minimal posterior costophrenic angle blunting remaining. There has been progressive collapse of the T12 vertebral body which is now lost approxima tely 50% in vertical height and there is a small retropulsed posterior superior fragment without sign ificant canal compromise. There is no air space opacity identified. The upper airway is unremarkable. There is no mediastinal m ass or adenopathy. No aortic aneurysm. Evidence of prior coronary artery bypass surgery is noted. The upper abdominal images are unchanged. The left lobe liver cyst redemonstrated.. IMPRESSION: The pleural effusions have nearly resolved with only trace amounts blunting the posterior costophrenic angles bilaterally. The compression fracture of T12 has progressed since the prior examination. ACT 112: Positive. There are findings on this exam that require communication between the performing entity and the patient following Patient Test Result Information Act ([place] Act 112) guidelines. Electronically signed by: Keturah Early M.D. 03/29/2025 2:37 PM
--- NOTE | 2025-03-29 15:55 | Hospitalist Progress Note ---
Date of Service March 29, 2025 Assessment & Plan (1) MAGAN (acute kidney injury): (2) Anemia: (3) Compression fracture of L1 lumbar vertebra: (4) Diabetes mellitus type 2, insulin dependent: (5) CAD, multiple vessel: (6) Depression: Plan 74 year old female from [facility] (currently residing there for rehab) with PMH significant for NSTEMI in November 2024, severe multivessel CAD s/p CABG x 3 [RODNEY to LAD and SVG to OM, PDA] on 12/25/2024 at [place], uncontrolled DMII [Hgb A1c 12.9% in November 2024], HLD with history of statin intolerance, CKD stage IIIa, and constipation who presented to the ED on 03/26/2025 with worsening renal function detected on outpatient labs. Recent admission from 03/13-03/22/2025 for syncope suspected due to orthostasis. Her diuretics were held in the setting of low BP and syncope and she developed moderate bilateral pleural effusions. Diuresis was restarted which resulted in non-oliguric stage 3 MAGAN. Nephrology was consulted and provided discharge recommendations including torsemide 80mg bid, 1.5L fluid limit, <2g daily sodium diet with plans for repeat labs on 03/26. Her labs today revealed creat of 5.81 which is increased from 4.28 on 03/22/25. Dr Levin (nephrology) noted need for preparation for dialysis as outpatient given 2+ months with eGFR low teens or worse. Has follow up appointment with Dr Hendricks on 04/02 and was getting scheduled to establish care with Dr Han after dialysis modality educations to be evaluated for AV fistula creation and possible PD catheter placement. MAGAN Patient presented with creat 5.81 (increased from 4.28 on 03/22/2025) Likely secondary to diuretics in setting of fluid overload during previous admission Hold torsemide and avoid nephrotoxic agents as able Monitor BMP Consult nephrology to evaluate need for possible hemodialysis Cr now 6 (03/27/2025) Nephrology following and discussed with , contemplating dialysis, for now want to cont. closely monitor 03/28 Creatinine remains 6.0 nephrology service on board possible hemodialysis if without improvement 03/[address] Metz discussed initiation of hemodialysis including line placement with patient, she would like to follow-up with outpatient power plant technician before making a decision CT chest: No pleural effusion CT abdomen pelvis: Kidneys without obstruction etc. Episode of chest pain History of CAD, CABG December 2024 Troponin x 2: 29, 28 EKG no signs of ischemia or infarct Echocardiogram: no wall motion abnormalities continue Plavix Cardiology service consulted: Chest pain likely atypical, musculoskeletal resolved Bilateral pleural effusions Detected on CXR and CT chest during previous admission Patient is not SOB or hypoxic and lungs sounds clear 1.5L fluid limit <2g daily sodium diet Strict I&Os Daily weights on standing scale 03/28 Chest x-ray today: There is interval resolution of haziness in the right lower zone and significant regression of haziness in the left lower zone. There is unchanged left costophrenic angle blunting, likely representing mild effusion or thickening. There is interval resolution of right costophrenic angle blunting, and it appears clear. Chronic anemia Hgb stable at 12.1 Received IV iron during previous admission Monitor CBC 03/28 Hemoglobin 11.1, 10.8 Monitor closely Compression fracture of L1 lumbar vertebra Detected on lumbar spine CT during previous admission TLSO brace while ambulating Pain control with scheduled tylenol tid and lidocaine patches daily Continue PT/OT services while inpt --pain well-controlled Diabetes BSG ACHS and SSI while inpt Depression Continue escitalopram DVT Prophylaxis: SQ Heparin Code Status: FULL CODE PCP:Dr. Janie Pena Admission and Anticipated Discharge Date Admission Date: March 26, 2025 Subjective seen sitting up in bedside chair, comfortable, in good spirits States she feels better today Back pain is now adequately controlled No shortness of breath, chest pain, dizziness, nausea, abdominal pain No other new symptoms Review of Systems Review of Systems: all noted and negative except for above Physical Exam Physical Exam: General- oriented x 3, not in distress, speaks in sentences with no effort or accessory muscle use Eyes- anicteric Neck- no JVD Lungs- clear breath sounds bilaterally, no rales/wheezes Heart- normal rate, regular rhythm; no murmurs Abdomen- normal bowel sounds, nondistended, soft, nontender Extremities- no pretibial edema, no calf tenderness Neuro- alert, oriented x 3; no gross focal neurologic deficits Skin- warm & dry Results & Data Results & Data Vital Signs (Past 12 Hours) Vital Signs Temp Pulse Resp BP Pulse Ox O2 Del Method 03/29/25 07:21 36.7 C 87 16 119/75 98 Room Air all noted and reviewed including below (2) Anemia Anemia type: unspecified type Qualified Code(s): D64.9 - Anemia, unspecified
[2025-03-30 07:24] LABS: Anion Gap 10.0 (3-11); Blood Urea Nitrogen 75.0 mg/dl (6-23); Calcium 9.3 mg/dl (8.6-10.3); Carbon Dioxide 33.0 mmol/L (21-32); Chloride 92.0 mmol/L (98-107); Creatinine Clr Calc Pharmacy 7.7 ml/min; Glucose 135.0 mg/dl (70-99(Fasting)); Magnesium 2.7 mg/dl (1.7-2.4); Potassium 4.1 mmol/L (3.5-5.1); Sodium 135.0 mmol/L (136-145)
[2025-03-30 07:57] VITALS: BP 139/68; PULSE 77; RESP 16; TEMP 97.7; O2SAT 97
[2025-03-30 09:03] LABS: Hematocrit (blood only) 35.2 % (37.0-47.0); Hemoglobin 11.0 g/dl (12.0-16.0); Immature Granulocytes # (auto) 0.02 K/uL (0.01-0.20); Immature Granulocytes % (auto) 0.3 %; Mean Corpuscular Hemoglobin 31.5 pg (25.0-34.0); Mean Corpuscular Volume 100.9 fL (80.0-100.0); Platelet Count 410 K/uL (130-400); RDW Standard Deviation 61.1 fL (36.4-46.3); Red Blood Count 3.49 M/uL (4.20-5.40); White Blood Count 5.74 K/ul (4.8-10.8)
--- NOTE | 2025-03-30 13:03 | Discharge Summary ---
Discharge Summary Date of Service March 30, 2025 delayed entry date of service noted above Principal Dx & Hospital Course #1 = Principal Diagnosis (1) MAGAN (acute kidney injury): (2) Anemia: (3) Compression fracture of L1 lumbar vertebra: (4) Diabetes mellitus type 2, insulin dependent: (5) CAD, multiple vessel: (6) Depression: Plan 74 year old female from [facility] (currently residing there for rehab) with PMH significant for NSTEMI in November 2024, severe multivessel CAD s/p CABG x 3 [RODNEY to LAD and SVG to OM, PDA] on 12/25/2024 at [facility], uncontrolled DMII [Hgb A1c 12.9% in November 2024], HLD with history of statin intolerance, CKD stage IIIa, and constipation who presented to the ED on 03/26/2025 with worsening renal function detected on outpatient labs. Recent admission from 03/13-03/22/2025 for syncope suspected due to orthostasis. Her diuretics were held in the setting of low BP and syncope and she developed moderate bilateral pleural effusions. Diuresis was restarted which resulted in non-oliguric stage 3 MAGAN. Nephrology was consulted and provided discharge recommendations including torsemide 80mg bid, 1.5L fluid limit, <2g daily sodium diet with plans for repeat labs on 03/26. Her labs today revealed creat of 5.81 which is increased from 4.28 on 03/22/25. Dr Levin (nephrology) noted need for preparation for dialysis as outpatient given 2+ months with eGFR low teens or worse. Has follow up appointment with Dr Hendricks on 04/02 and was getting scheduled to establish care with Dr Han after dialysis modality educations to be evaluated for AV fistula creation and possible PD catheter placement. MAGAN Patient presented with creat 5.81 (increased from 4.28 on 03/22/2025) Likely secondary to diuretics in setting of fluid overload during previous admission Hold torsemide and avoid nephrotoxic agents as able Monitor BMP Consult nephrology to evaluate need for possible hemodialysis Cr now 6 (03/27/2025) Nephrology following and discussed with , contemplating dialysis, for now want to cont. closely monitor 03/28 Creatinine remains 6.0 nephrology service on board possible hemodialysis if without improvement 03/[address] Metz discussed initiation of hemodialysis including line placement with patient, she would like to follow-up with outpatient stop attacher before making a decision CT chest: No pleural effusion CT abdomen pelvis: Kidneys without obstruction etc. 03/30 crea 5.3 cleared for discharge by Nephro ff up with Nephro as outpatient to discuss re: consideration of hemodialysis Episode of chest pain History of CAD, CABG December 2024 Troponin x 2: 29, 28 EKG no signs of ischemia or infarct Echocardiogram: Septal motion consistent with postoperative state; small sized apical wall motion abnormality with hypokinesis of segments continue Plavix Cardiology service consulted: Chest pain likely atypical, musculoskeletal resolved Bilateral pleural effusions Detected on CXR and CT chest during previous admission Patient is not SOB or hypoxic and lungs sounds clear 1.5L fluid limit <2g daily sodium diet Strict I&Os Daily weights on standing scale 03/29 CT chest: The pleural effusions have nearly resolved with only trace amounts blunting the posterior costophrenic angles bilaterally. The compression fracture of T12 has progressed since the prior examination. Chronic anemia Hgb stable at 12.1 Received IV iron during previous admission Monitor CBC Hemoglobin stable Compression fracture of L1 lumbar vertebra Detected on lumbar spine CT during previous admission TLSO brace while ambulating Pain control with scheduled tylenol tid and lidocaine patches daily Continue PT/OT services while inpt --pain well-controlled CT chest: The pleural effusions have nearly resolved with only trace amounts blunting the posterior costophrenic angles bilaterally. The compression fracture of T12 has progressed since the prior examination. - continue brace - Further work up, management, and ff up as outpatient Abnormal CT Findings The abdominal aorta is normal in course and caliber noting moderate to advanced atherosclerotic calcification. The bladder wall is mildly thickened and there are foci of gas within the bladder lumen. This may be related to recent instrumentation. Correlate with clinical findings and urinalysis. Further work up, management, and ff up as outpatient Diabetes BSG ACHS and SSI while inpt Depression Continue escitalopram DVT Prophylaxis: SQ Heparin Code Status: FULL CODE PCP:Dr. Janie Pena Notes For Next Care Provider Medication Changes From Visit metoprolol XL-for heart rate control you may take Tylenol 500 mg every 6 hours as needed for pain. lower Escitalopram dose to 5mg daily because of your current kidney function. Admission HPI Per Admitting Provider 74 year old female from [facility] (currently residing there for rehab) with PMH significant for NSTEMI in November 2024, severe multivessel CAD s/p CABG x 3 [RODNEY to LAD and SVG to OM, PDA] on 12/25/2024 at [facility], uncontrolled DMII [Hgb A1c 12.9% in November 2024], HLD with history of statin intolerance, CKD stage IIIa, and constipation who presented to the ED on 03/26/2025 with worsening renal function detected on outpatient labs. Recent admission from 03/13-03/22/2025 for syncope suspected due to orthostasis. Her diuretics were held in the setting of low BP and syncope and she developed moderate bilateral pleural effusions. Diuresis was restarted which resulted in non-oliguric stage 3 MAGAN. Nephrology was consulted and provided discharge recommendations including torsemide 80mg bid, 1.5L fluid limit, <2g daily sodium diet with plans for repeat labs on 03/26. Her labs today revealed creat of 5.81 which is increased from 4.28 on 03/22/25. Dr Levin noted need for preparation for dialysis as outpatient given 2+ months with eGFR low teens or worse. Has follow up appointment with Dr Hendricks on 04/02 and was getting scheduled to establish care with Dr Han after dialysis modality educations to be evaluated for AV fistula creation and possible PD catheter placement. Patient seen in the ED. Reports she has not been urinating very much, last full void around 0600 with only a small trickle prior to ambulance ride to ED. She reports rehab has been going well. She is enjoying her stay at [facility]. Reports 5/10 back pain. Notes pain has been controlled with tylenol and lidocaine patches. Notes constipation where she had a bowel movement yesterday but it had been two days for her. She has been drinking prune juice to help. Denies syncopal episodes, dizziness, chest pain, SOB, abdominal pain, N/V. Admission Exam Per Admitting Provider General/Psych: WD/WN, sitting up in bed, NAD, conversing easily Head: normocephalic, atraumatic Eyes: normal inspection, PERRL, conjunctivae pink ENT: external ear and nose normal, oropharynx normal Neck: normal visual inspection, trachea midline Respiratory: normal respiratory effort, lungs clear to auscultation, no wheeze/rales/rhonchi, no accessory muscle use Cardiovascular: regular rate and rhythm, no murmur/rub/gallop, no JVD Extremities: no cyanosis or clubbing, normal peripheral pulses, no BLE edema Abdomen/GI: normal bowel sounds, soft, nontender Neurologic/MSK: A+Ox3, motor strength 5/5, moves all extremities Skin: no rashes, normal color, warm and dry Discharge Exam General- oriented x 3, not in distress, speaks in sentences with no effort or accessory muscle use Eyes- anicteric Neck- no JVD Lungs- clear breath sounds bilaterally, no rales/wheezes Heart- normal rate, regular rhythm; no murmurs Abdomen- normal bowel sounds, nondistended, soft, nontender Extremities- no pretibial edema, no calf tenderness Neuro- alert, oriented x 3; no gross focal neurologic deficits Skin- warm & dry Updated Medication List Medication Instructions Recorded Confirmed Type cholecalciferol (vitamin D3) 50 50 mcg PO QAM 12/20/24 03/26/25 History mcg (2,000 unit) tablet (Vitamin D3) multivitamin with minerals-folic 1 tab PO QAM 12/20/24 03/26/25 History acid 0.4 mg tablet (One-A-Day Women's 50 Plus) omega 5-jqc-dhy-fish oil 1,000 mg 1 cap PO QAM 12/20/24 03/26/25 History (120 mg-180 mg) capsule (Fish Oil) aspirin 81 mg tablet,delayed 81 mg PO QAM #1 tab 12/21/24 03/26/25 Rx release clopidogrel 75 mg tablet 75 mg PO QAM 03/13/25 03/26/25 History famotidine 20 mg tablet 20 mg PO QAM 03/13/25 03/26/25 History insulin aspart U-100 100 unit/mL 1 sliding scale dose subcut 03/13/25 03/26/25 History (3 mL) subcutaneous pen TIDWMEAL insulin glargine 100 unit/mL (3 13 unit subcut HS 03/13/25 03/26/25 History mL) subcutaneous pen (Lantus Solostar U-100 Insulin) lidocaine 5 % topical patch 1 patch transdermal QAM #3 ea 03/22/25 03/26/25 Rx escitalopram oxalate 10 mg tablet 5 mg (1/2 x 10 mg) PO QAM #0 tabs 03/30/25 03/26/25 Rx metoprolol succinate 25 mg 12.5 mg (1/2 x 25 mg) PO HS 30 03/30/25 Rx tablet,extended release 24 hr days #15 tabs Hospital Stay Data Consultations 03/26/25 13:29 ED Decision to Admit Stat 03/26/25 13:49 Consult Nephrology Stat 03/28/25 09:39 Consult Cardiology Routine 03/29/25 08:00 Consult Vascular Surgery Routine Diagnostic Imagining Performed Laboratory Results WBC 5.74 K/ul (4.8-10.8) 03/30/25 06:32 RBC 3.49 M/uL (4.20-5.40) L 03/30/25 06:32 Hgb 11.0 g/dl (12.0-16.0) L 03/30/25 06:32 Hct 35.2 % (37.0-47.0) L 03/30/25 06:32 MCV 100.9 fL (80.0-100.0) H 03/30/25 06:32 MCH 31.5 pg (25.0-34.0) 03/30/25 06:32 MCHC 31.3 g/dL (32.0-36.0) L 03/30/25 06:32 RDW Std Deviation 61.1 fL (36.4-46.3) H 03/30/25 06:32 RDW Coeff of Zeina 16.5 % (11.5-14.5) H 03/30/25 06:32 Plt Count 410 K/uL (130-400) H 03/30/25 06:32 MPV 10.1 fL (9.4-12.4) 03/30/25 06:32 Immature Gran % (Auto) 0.3 % 03/30/25 06:32 Neut % (Auto) 44.3 % 03/30/25 06:32 Lymph % (Auto) 30.7 % 03/30/25 06:32 [place] % (Auto) 16.2 % 03/30/25 06:32 Eos % (Auto) 7.5 % 03/30/25 06:32 Baso % (Auto) 1.0 % 03/30/25 06:32 Neut # (Auto) 2.54 K/uL (1.40-6.50) 03/30/25 06:32 Lymph # (Auto) 1.76 K/uL (1.20-3.40) 03/30/25 06:32 [place] # (Auto) 0.93 K/uL (0.11-0.59) H 03/30/25 06:32 Eos # (Auto) 0.43 K/uL (0.00-0.50) 03/30/25 06:32 Baso # (Auto) 0.06 K/uL (0.00-0.20) 03/30/25 06:32 Immature Gran # (Auto) 0.02 K/uL (0.01-0.20) 03/30/25 06:32 APTT 27 Seconds (21-31) 03/28/25 06:32 PTT Ratio 1.0 03/28/25 06:32 Sodium 135 mmol/L (136-145) L 03/30/25 06:30 Potassium 4.1 mmol/L (3.5-5.1) 03/30/25 06:30 Chloride 92 mmol/L (98-107) L 03/30/25 06:30 Carbon Dioxide 33 mmol/L (21-32) H 03/30/25 06:30 Anion Gap 10 (3-11) 03/30/25 06:30 BUN 75 mg/dl (6-23) H 03/30/25 06:30 Creatinine 5.39 mg/dl (0.6-1.2) H* 03/30/25 06:30 Est Cr Clr Drug Dosing 7.7 ml/min 03/30/25 06:30 eGFR 7.73 03/30/25 06:30 BUN/Creatinine Ratio 13.9 (10-20) 03/30/25 06:30 Glucose 135 mg/dl (70-99(Fasting)) H 03/30/25 06:30 POC Glucose 139 mg/dl (70-99) H 03/30/25 11:36 Estimat Average Glucose 108 mg/dl 03/29/25 08:29 Hemoglobin A1c 5.4 % (4.5-5.6) 03/29/25 08:29 Calcium 9.3 mg/dl (8.6-10.3) 03/30/25 06:30 Phosphorus 6.0 mg/dl (2.5-4.9) H 03/30/25 06:30 Magnesium 2.7 mg/dl (1.7-2.4) H 03/30/25 06:30 Total Bilirubin 0.4 mg/dl (0.2-1.0) 03/26/25 13:36 AST 15 U/L (13-39) 03/26/25 13:36 ALT 19 U/L (7-52) 03/26/25 13:36 Alkaline Phosphatase 146 U/L (34-104) H 03/26/25 13:36 Troponin I High Sens 28.0 pg/ml (0-14) H 03/28/25 09:56 Total Protein 7.5 gm/dl (6.0-8.3) 03/26/25 13:36 Albumin 4.2 gm/dl (3.4-5.0) 03/26/25 13:36 Globulin 3.3 gm/dl (2.5-4.0) 03/26/25 13:36 Albumin/Globulin Ratio 1.3 (0.9-2) 03/26/25 13:36 PTH Intact 105.1 pg/ml (12.0-88.0) H 03/29/25 10:14 Urine Color Yellow 03/26/25 19:54 Urine Appearance Clear (Clear) 03/26/25 19:54 Urine pH 6.5 (4.5-7.5) 03/26/25 19:54 Ur Specific [place] 1.011 (1.000-1.030) 03/26/25 19:54 Urine Protein Negative (Negative) 03/26/25 19:54 Urine Glucose (UA) Negative (Negative) 03/26/25 19:54 Urine Ketones Negative (Negative) 03/26/25 19:54 Urine Blood Negative (Negative) 03/26/25 19:54 Urine Nitrite Negative (Negative) 03/26/25 19:54 Urine Bilirubin Negative (Negative) 03/26/25 19:54 Urine Urobilinogen Negative (Negative) 03/26/25 19:54 Ur Leukocyte Esterase Negative (Negative) 03/26/25 19:54 Urine Comment 03/26/25 19:54 Nasal Screen MRSA (PCR) Negative (Negative) 03/27/25 01:50 Adenovirus (PCR) Not Detected (NotDetected) 03/28/25 Unknown B. pertussis DNA (PCR) Not Detected (NotDetected) 03/28/25 Unknown B.parapertussis DNA PCR Not Detected (NotDetected) 03/28/25 Unknown C. pneumoniae DNA (PCR) Not Detected (NotDetected) 03/28/25 Unknown Coronavirus OC43 (PCR) Not Detected (NotDetected) 03/28/25 Unknown Coronavirus HKU1 (PCR) Not Detected (NotDetected) 03/28/25 Unknown Coronavirus 229E (PCR) Not Detected (NotDetected) 03/28/25 Unknown SARS-CoV-2 (PCR) Not Detected (NotDetected) 03/28/25 Unknown Coronavirus NL63 (PCR) Not Detected (NotDetected) 03/28/25 Unknown Human Metapneumovir PCR Not Detected (NotDetected) 03/28/25 Unknown Influenza Type A (PCR) Not Detected (NotDetected) 03/28/25 Unknown Influenza Type B (PCR) Not Detected (NotDetected) 03/28/25 Unknown M. pneumoniae (PCR) Not Detected (NotDetected) 03/28/25 Unknown Parainfluenza 1 (PCR) Not Detected (NotDetected) 03/28/25 Unknown Parainfluenza 2 (PCR) Not Detected (NotDetected) 03/28/25 Unknown Parainfluenza 3 (PCR) Not Detected (NotDetected) 03/28/25 Unknown Parainfluenza 4 (PCR) Not Detected (NotDetected) 03/28/25 Unknown RSV (PCR) Not Detected (NotDetected) 03/28/25 Unknown Entero/Rhino (PCR) Not Detected (NotDetected) 03/28/25 Unknown Impressions Chest X-Ray 03/28/25 06:30 EXAM: XR chest 1V portable CLINICAL HISTORY: Cough. TECHNIQUE: An X-ray image of the chest was obtained in the anteroposterior (AP) projection. COMPARISON: 03/18/2025 CT, 03/17/2025 CR. FINDINGS: Pulmonary Parenchyma: There is interval resolution of haziness in the right lower zone and significant regression of haziness in the left lower zone. No pulmonary nodules are identified. The left costophrenic angle blunting likely represents mild effusion or thickening. There is no evidence of right pleural effusion or pleural thickening. Heart and Mediastinum: The heart size and shape are normal. There is no mediastinal widening or masses. No hilar or mediastinal lymphadenopathy is seen. Bony Thorax: There are median sternotomy wires present. Soft Tissues: The soft tissues overlying the chest wall are unremarkable. IMPRESSION: There is interval resolution of haziness in the right lower zone and significant regression of haziness in the left lower zone. There is unchanged left costophrenic angle blunting, likely representing mild effusion or thickening. There is interval resolution of right costophrenic angle blunting, and it appears clear. Electronically signed by Justin Jones 03-28-2025 08:12 AM Abdomen/Pelvis CT 03/29/25 12:18 CT SCAN OF THE ABDOMEN AND PELVIS WITHOUT IV CONTRAST CLINICAL HISTORY: Acute renal insufficiency COMPARISON STUDY: Abdominal CT dated 10/31/2021 TECHNIQUE: CT scan of the abdomen and pelvis is performed from the lung bases to the proximal femora. Images are reviewed in the axial, sagittal, and coronal planes. IV contrast was not administered for this examination. A dose lowering technique was utilized adhering to the principles of ALARA. CT DOSE: 498.82 mGy.cm FINDINGS: Lung bases: The patient is status post midline sternotomy. The heart is top normal in size and without pericardial effusion. There is trace left pleural effusion with dependent atelectasis. A tiny hiatal hernia is noted. Liver: The unenhanced liver is normal in size, contour, and attenuation. There is no intrahepatic biliary ductal dilatation. There is a 2.6 cm left lobe cyst. Gallbladder: There are layering calcified gallstones with no CT evidence of acute cholecystitis. Spleen: Normal in size and attenuation. Pancreas: Unremarkable. Adrenal glands: Unremarkable. Kidneys: The unenhanced kidneys are normal in size and without hydronephrosis. No renal calculi are identified and no ureteral stone is seen. A 1 cm cortical cyst is again seen on the left. Renal sinus cysts are noted on the left. Abdominal vasculature: The abdominal aorta is normal in course and caliber noting moderate to advanced atherosclerotic calcification. Bowel: There is mild to moderate colonic fecal retention. No bowel obstruction is identified. There is mild colonic diverticulosis without CT evidence of acute diverticulitis. The appendix is well-visualized and normal. Peritoneum: There is no intraperitoneal free air or abdominal ascites. Lymphadenopathy: None. Pelvic viscera: The bladder wall appears thickened and there are foci of intraluminal gas. There are calcified uterine fibroids. No adnexal lesion is seen. Skeletal structures: The skeletal structures are osteopenic. There is mild to moderate lumbosacral spondylosis. No lytic or blastic lesions are seen. A subacute compression fracture of L1 is again noted. IMPRESSION: 1. The bladder wall is mildly thickened and there are foci of gas within the bladder lumen. This may be related to recent instrumentation. Correlate with clinical findings and urinalysis. 2. The kidneys are normal in size and without hydronephrosis. 3. Trace left pleural effusion. 4. Cholelithiasis. 5. Additional findings as above. ACT 112: Negative or not required by law. Electronically signed by: David Haely M.D. 03/29/2025 1:[address] 03/29/25 12:18 CT chest diagnostic wo con CT DOSE: CLINICAL HISTORY: r/o pleural effusion. TECHNIQUE: Multiaxial CT images of the chest were performed without contrast. A dose lowering technique was utilized adhering to the principles of ALARA. COMPARISON STUDY: 03/18/2025 FINDINGS: The pleural effusions have resolved with only minimal posterior costophrenic angle blunting remaining. There has been progressive collapse of the T12 vertebral body which is now lost approximately 50% in vertical height and there is a small retropulsed posterior superior fragment without significant canal compromise. There is no air space opacity identified. The upper airway is unremarkable. There is no mediastinal mass or adenopathy. No aortic aneurysm. Evidence of prior coronary artery bypass surgery is noted. The upper abdominal images are unchanged. The left lobe liver cyst redemonstrated.. IMPRESSION: The pleural effusions have nearly resolved with only trace amounts blunting the posterior costophrenic angles bilaterally. The compression fracture of T12 has progressed since the prior examination. ACT 112: Positive. There are findings on this exam that require communication between the performing entity and the patient following Patient Test Result Information Act ([place] Act 112) guidelines. Electronically signed by: Keturah Early M.D. 03/29/2025 2:37 PM Discharge Instructions Given to Patient (Per Discharging Provider) PLEASE REFER TO YOUR NEW MEDICATION LIST AND FOLLOW INSTRUCTIONS CAREFULLY. YOUR NEW MEDICATIONS INCLUDE: metoprolol XL-for heart rate control you may take Tylenol 500 mg every 6 hours as needed for pain. lower Escitalopram dose to 5mg daily because of your current kidney function. Always use your back brace. Ambulate carefully to avoid falls. PLEASE CALL YOUR PRIMARY CARE PHYSICIAN OR RETURN TO THE ER IF WITH WORSENING OF SYMPTOMS, INCLUDING Shortness of breath, weakness, nausea or vomiting, Worsening back pain, leg weakness or numbness, etc. FOLLOW UP WITH PRIMARY CARE PHYSICIAN in 1 week. Follow-up with kidney specialist this coming week as scheduled. Total Time Total Time Spent Total Time Spent (In Minutes): 55 minutes
== END 2025-03-30 14:10 | disposition home or self-care (01) | DRG 683 ==
LOC: ED 13:15 → EDINP 14:46 → SUATTDRO 14:46 → 2N 16:39 → 3W 03-27 22:10
DX: Z79.4 Long term (current) use of insulin; N17.9 Acute kidney failure, unspecified; Z87.891 Personal history of nicotine dependence; I50.32 Chronic diastolic (congestive) heart failure; E11.22 Type 2 diabetes mellitus with diabetic chronic kidney disease; M79.7 Fibromyalgia; Z79.82 Long term (current) use of aspirin; R33.9 Retention of urine, unspecified; D63.1 Anemia in chronic kidney disease; I25.2 Old myocardial infarction; Z95.1 Presence of aortocoronary bypass graft; N18.5 Chronic kidney disease, stage 5; J90 Pleural effusion, not elsewhere classified; F32.A Depression, unspecified; I25.10 Atherosclerotic heart disease of native coronary artery without angina pectoris; M48.56XA Collapsed vertebra, not elsewhere classified, lumbar region, initial encounter for fracture; E78.5 Hyperlipidemia, unspecified